=== PATIENT | male | born 1960 | race Caucasian/White ===

== ENCOUNTER → 2017-07-17 11:27 | Outpatient (CLI) | payer OTHER, SELFPAY ==
[2017-07-17 12:35] LABS: Anion Gap 6 (5-15); BUN 13 mg/dL (7-18); BUN/Creat Ratio 13.3 RATIO (10-20); Calcium,Total 8.5 mg/dL (8.5-10.1); Chloride 107 mmol/L (98-107); Creatinine, Serum 0.98 mg/dL (0.70-1.30); EST Glomerular Filtration Rate 84 mL/min (>60); Est Glom Filt Rate - Afr Amer 102 mL/min (>60); Glucose 176 mg/dL (74-106); Potassium 4.3 mmol/L (3.5-5.1); Sodium Level 143 mmol/L (136-145)
== END ==
PROVIDERS: Family Provider Family Medicine; PCP Family Medicine; Visit Provider Internal Medicine Cardiovascular Disease
DX: I42.0 Dilated cardiomyopathy (principal)
CPT/HCPCS: 36415; 80048

== ENCOUNTER → 2017-08-06 12:44 | Outpatient (CLI) | payer OTHER, SELFPAY ==
--- NOTE | 2017-08-06 12:45 | ECHOCS_ITS ---
Version 2 Reason For Study: DYSPNEA Left Ventricle Severely dilated left ventricle. The estimated ejection fraction is 15 %. Transmitral diastolic flow velocities suggest severe (stage 3) diastolic dysfunction. There is severe global hypokinesis of the left ventricle. Right Ventricle Normal RV size. Normal systolic function. Atria The left atrium is severely enlarged. The right atrium is moderately enlarged. Mitral Valve Normal mitral valve. Mild (1+) eccentric mitral valve insufficiency. Tricuspid Valve Normal tricuspid valve. Mild to moderate (1-2+) tricuspid valve insufficiency. Pulmonary artery systolic pressure is 30 mmHg. Aortic Valve Normal aortic valve. Pulmonic Valve Normal pulmonic valve. Great Vessels Normal aortic root. The pulmonary artery is normal size. Normal inferior vena cava. Pericardium/Pleural No pericardial effusion. MMode/2D Measurements & Calculations LVIDd: 6.8 cm IVSd: 0.94 cm LA dimension: 5.3 cm LVIDs: 6.2 cm LVPWd: 0.99 cm RVDd: 3.9 cm FS: 8.4 % LAV(MOD-bp): 134.2 ml EDV(MOD-sp4): 251.1 ml EDV(MOD-sp2): 172.8 ml LAV(MOD-bp) Indexed: 53.5 ml/m2 ESV(MOD-sp4): 170.3 ml EF(MOD-sp2): 37.8 % LAV(MOD-sp2): 106.9 ml EF(MOD-sp4): 32.2 % LAV(MOD-sp4): 156.1 ml SV(MOD-sp4): 80.8 ml SV(MOD-sp2): 65.3 ml LA A4 area: 38.4 cm2 RA A4 area: 21.5 cm2 Doppler Measurements & Calculations MV E max abner: 82.4 cm/sec Ao V2 max: 154.0 cm/sec LV V1 max: 102.3 cm/sec MV A max abner: 39.3 cm/sec Ao max P.5 mmHg LV V1 max P.2 mmHg MV E/A: 2.1 TR max abner: 261.1 cm/sec TR max P.3 mmHg Interpretation Summary Severely dilated left ventricle. The estimated ejection fraction is 15 %. Transmitral diastolic flow velocities suggest severe (stage 3) diastolic dysfunction Mild to moderate (1-2+) tricuspid valve insufficiency. Pulmonary artery systolic pressure is 30 mmHg. Compared to the previous pulmonary pressures are better Contrast injection was performed. Compared to prior study, there is no significant change. Ordering Physician: Brady Regalado Referring Physician: Brady Regalado Performed By: Tram Mclaughlin, RDCS, RVT
== END ==
PROVIDERS: Family Provider Family Medicine; PCP Family Medicine; Visit Provider Internal Medicine Cardiovascular Disease
DX: I48.2 Chronic atrial fibrillation (principal); R06.00 Dyspnea, unspecified; R06.02 Shortness of breath
CPT/HCPCS: 93306; Q9957; A4216; C8929

== ENCOUNTER → 2018-05-18 14:41 | Outpatient (CLI) | payer OTHER, SELFPAY ==
[2018-05-18 13:26] VITALS: BMI 40.0
[2018-05-18 16:05] LABS: Anion Gap 10 (5-15); BUN 15 mg/dL (7-18); BUN/Creat Ratio 13.4 RATIO (10-20); Chloride 110 mmol/L (98-107); Creatinine, Serum 1.12 mg/dL (0.70-1.30); EST Glomerular Filtration Rate 72 mL/min (>60); Est Glom Filt Rate - Afr Amer 87 mL/min (>60); Glucose 170 mg/dL (74-106); Sodium Level 143 mmol/L (136-145)
--- OUTSIDE RECORDS SUMMARY | 2018-07-21 02:53 | XMS RPT_ITS | Summary of Care ---
:1960 Author Organization [facility] Address [address] [place] [address] Phone Care Team Providers Name Role Phone Maico Lainez MD Primary Care Provider Brady Regalado MD Referring 1 Kyaw Bateman MD Referring 2 Mandi Peoples MD Referring 3 Encounter Details Date Type Department Care Team Description 04/06/2018 Letter (Out) Revenue Cycle Marbella Painter RN Allergies No Known Allergiesas of this encounter Medications Prescription Sig. Disp. Refills Start Date End Date Status furOSEmide 40 MG Tab Take 40 mg by Active tablet mouth 2 times daily. atorvastatin 40 MG Tab Take 40 mg by Active tablet mouth at bedtime. potassium chloride 20 Take 20 mEq by Active MEQ Tab CR tablet mouth 2 times daily. aspirin 81 MG Tab Take 81 mg by Active mouth daily. losartan 25 MG Tab Take 25 mg by Active tablet mouth daily. oxygen gas Inhale As Active directed. At night 2-3 liter spironolactone Take 1 tablet by 30 tablet 6 02/09/2018 Active (ALDACTONE) 25 MG Tab mouth daily. tabletIndications: Nonischemic cardiomyopathy metformin 500 MG Tab Take 500 mg by Active tablet mouth 2 times daily with meals. carveDILOL 12.5 MG Tab Take 1 tablet by 60 tablet 5 03/13/2018 Active tabletIndications: mouth 2 times Nonischemic daily. cardiomyopathy sacubitril-valsartan Take 1 tablet by 60 tablet 3 03/16/2018 Active (ENTRESTO) 24-26 MG Tab mouth 2 times tablet daily. as of this encounter Active Problems Problem Noted Date PVC (premature ventricular contraction) 12/02/2017 Overview: Added automatically from request for surgery [id number] Nonischemic cardiomyopathy 12/02/2017 Overview: Added automatically from request for surgery [id number] Social History Tobacco Use Types Packs/Day Years Used Date Former Smoker Cigarettes 40 Quit: 01/10/2017 Smokeless Tobacco: Never Used Alcohol Use Drinks/Week oz/Week Comments No Sex Assigned at Date Recorded Not on file as of this encounter Plan of Treatment Upcoming Encounters Date Type Specialty Care Team Description 05/20/2018 Appointment Cardiovascular Medicine 06/19/2018 Office Visit Cardiovascular Medicine Mandi Peoples MD [address] [place] [phone] 08/10/2018 Clinical Support Cardiovascular Medicine Encounter 08/19/2018 Appointment Cardiovascular Medicine 11/18/2018 Appointment Cardiovascular Medicine 02/17/2019 Appointment Cardiovascular Medicine Health Maintenance Due Date Last Done Comments HEPATITIS C VIRUS SCREENING 1960 HIV SCREENING DISCUSSION 07/23/1975 TETANUS 1980 TDAP (ADULT) 1981 LIPID SCREENING 2002 COLON CANCER SCREENING DISCUSSION 2012 PROSTATE CANCER SCREENING 2012 DISCUSSION INFLUENZA VACCINE (#1) 2017 04/14/2017 POTASSIUM 03/06/2019 03/06/2018, 02/09/2018, 01/01/2018, Additional history exists as of this encounter Implants Implanted Type Area Chlorine Operator Device Identifier Expiration Model / Date Serial / Lot Generator Pulse Sicd [facility] Mri - [id number] ICD N/A: GUIDANT/[place] [id number] 12/10/2019 A219 / Implanted: Qty: 1 on 01/01/2018 by Kyaw Bateman MD Chest SCI [id number] / [id number] Electrode [place] S-Icd - [id number] Lead N/A: GUIDANT/[place] [id number] 10/10/2019 3501 / Implanted: Qty: 1 on 01/01/2018 by Kyaw Bateman MD Chest SCI CRM [id number] / as of this encounter
--- OUTSIDE RECORDS SUMMARY | 2018-07-21 02:53 | XMS RPT_ITS | Summary of Care ---
:1960 Author Organization [facility] Address [address] [place] [address] Phone Care Team Providers Name Role Phone Maico Lainez MD Primary Care Provider Brady Regalado MD Referring 1 Kyaw Bateman MD Referring 2 Mandi Peoples MD Referring 3 Reason for Visit Reason Comments Other Encounter Details Date Type Department Care Team Description 03/16/2018 Telephone [facility] RN Other [facility] [address] [place] [address] Allergies No Known Allergiesas of this encounter Medications Prescription Sig. Disp. Refills Start Date End Date Status furOSEmide 40 MG Tab Take 40 mg Active tablet by mouth 2 times daily. atorvastatin 40 MG Take 40 mg Active Tab tablet by mouth at bedtime. potassium chloride 20 Take 20 mEq Active MEQ Tab CR tablet by mouth 2 times daily. aspirin 81 MG Tab Take 81 mg Active by mouth daily. losartan 25 MG Tab Take 25 mg Active tablet by mouth daily. oxygen gas Inhale As Active directed. At night 2-3 liter spironolactone Take 1 30 tablet 6 02/09/2018 Active (ALDACTONE) 25 MG Tab tablet by tabletIndications: mouth daily. Nonischemic cardiomyopathy metformin 500 MG Tab Take 500 mg Active tablet by mouth 2 times daily with meals. carveDILOL 12.5 MG Take 1 60 tablet 5 03/13/2018 Active Tab tablet by tabletIndications: mouth 2 Nonischemic times daily. cardiomyopathy sacubitril-valsartan Take 1 60 tablet 3 03/16/2018 Active (ENTRESTO) 24-26 MG tablet by Tab tablet mouth 2 times daily. sacubitril-valsartan Take 1 60 tablet 3 03/16/2018 03/16/2018 Discontinued (ENTRESTO) 24-26 MG tablet by Tab tablet mouth 2 times daily. as of this encounter Active Problems Problem Noted Date PVC (premature ventricular contraction) 12/02/2017 Overview: Added automatically from request for surgery [id number] Nonischemic cardiomyopathy 12/02/2017 Overview: Added automatically from request for surgery [id number] Social History Tobacco Use Types Packs/Day Years Used Date Former Smoker Cigarettes 40 Quit: 01/10/2017 Smokeless Tobacco: Never Used Alcohol Use Drinks/Week oz/Week Comments No Sex Assigned at Date Recorded Not on file as of this encounter Plan of Treatment Upcoming Encounters Date Type Specialty Care Team Description 05/20/2018 Appointment Cardiovascular Medicine 06/19/2018 Office Visit Cardiovascular Medicine Mandi Peoples MD [address] [place] [phone] 08/10/2018 Clinical Support Cardiovascular Medicine Encounter [...] of this encounter Implants Implanted Type Area Dip Tanker Device Identifier Expiration Model / Date Serial / Lot Generator Pulse Sicd [facility] Mri - [id number] ICD N/A: [employer]SOCRATES/[place] [id number] 12/10/2019 A219 / Implanted: Qty: 1 on 01/01/2018 by Kyaw Bateman MD Chest SCI [id number] / [id number] Electrode [place] S-Icd - [id number] Lead N/A: GUIDANT/[place] [id number] 10/10/2019 3501 / Implanted: Qty: 1 on 01/01/2018 by Kyaw Bateman MD Chest SCI CRM [id number] / as of this encounter
--- OUTSIDE RECORDS SUMMARY | 2018-07-21 02:53 | XMS RPT_ITS | Summary of Care ---
:1960 Author Organization [facility] Address [address] [place] [address] Phone Care Team Providers Name Role Phone Maico Lainez MD Primary Care Provider Brady Regalado MD Referring 1 Kyaw Bateman MD Referring 2 Mandi Peoples MD Referring 3 Reason for Visit Reason Comments Medication Refill Recommendation For Mgmt Of Diagnosis Encounter Details Date Type Department Care Team Description 03/16/2018 Telephone [facility], Medication Refill; [facility] RN Recommendation For Mgmt Of Hospital Diagnosis [address] [place] [address] Allergies No Known Allergiesas of [...] tabletIndications: mouth 2 times Nonischemic daily. cardiomyopathy as of this encounter Active Problems Problem Noted Date PVC (premature ventricular contraction) 12/02/2017 Overview: Added automatically from request for surgery [id number] Nonischemic cardiomyopathy 12/02/2017 Overview: Added automatically from request for surgery [id number] Social History Tobacco Use Types Packs/Day Years Used Date Former Smoker Cigarettes 40 Quit: 01/10/2017 Smokeless Tobacco: Never Used Alcohol Use Drinks/Week oz/Week Comments No Sex Assigned at Date Recorded Not on file as of this encounter Plan of Treatment Upcoming Encounters Date Type Specialty Care Team Description 05/20/2018 Appointment Cardiovascular Medicine 06/19/2018 Office Visit Cardiovascular Medicine Mandi Peoples MD [address] [place] [phone] 08/10/2018 Clinical Support Cardiovascular Medicine Encounter [...] of this encounter Implants Implanted Type Area Upper Tier Device Identifier Expiration Model / Date Serial / Lot Generator Pulse Sicd [facility] Mri - [id number] ICD N/A: GUIDANT/[place] [id number] 12/10/2019 A219 / Implanted: Qty: 1 on 01/01/2018 by Kyaw Bateman MD Chest SCI [id number] / [id number] Electrode [place] S-Icd - [id number] Lead N/A: GUIDANT/[place] [id number] 10/10/2019 3501 / Implanted: Qty: 1 on 01/01/2018 by Kyaw Bateman MD Chest SCI CRM [id number] / as of this encounter
--- OUTSIDE RECORDS SUMMARY | 2018-07-21 02:53 | XMS RPT_ITS | Summary of Care ---
:1960 Author Organization [facility] Address [address] [place] [address] Phone Care Team Providers Name Role Phone Maico Lainez MD Primary Care Provider Brady Regalado MD Referring 1 Kyaw Bateman MD Referring 2 Mandi Peoples MD Referring 3 Reason for Visit Reason Comments Other Encounter Details Date Type Department Care Team Description 03/16/2018 Telephone [facility] RN Other [facility] [address] [place] [address] Allergies No Known Allergiesas of [...] Overview: Added automatically from request for surgery [id number] Nonischemic cardiomyopathy 12/02/2017 Overview: Added automatically from request for surgery [id number] Social History Tobacco Use Types Packs/Day Years Used Date Former Smoker Cigarettes 40 Quit: 01/10/2017 Smokeless Tobacco: Never Used Alcohol Use Drinks/Week oz/Week Comments No Sex Assigned at Date Recorded Not on file as of this encounter Plan of Treatment Upcoming Encounters Date Type Specialty Care Team Description 05/20/2018 Appointment Cardiovascular Medicine 06/19/2018 Office Visit Cardiovascular Medicine Mandi Peoples MD [address] [place] [phone] 08/10/2018 Clinical Support Cardiovascular Medicine Encounter 08/19/2018 [...] of this encounter Implants Implanted Type Area Cake Mixer Device Identifier Expiration Model / Date Serial / Lot Generator Pulse Sicd [facility] Mri - [id number] ICD N/A: GUIDANT/[place] [id number] 12/10/2019 A219 / Implanted: Qty: 1 on 01/01/2018 by Kyaw Bateman MD Chest SCI [id number] / [id number] Electrode [place] S-Icd - [id number] Lead N/A: GUIDANT/[place] [id number] 10/10/2019 3501 / Implanted: Qty: 1 on 01/01/2018 by Kyaw Bateman MD Chest SCI CRM [id number] / as of this encounter
--- OUTSIDE RECORDS SUMMARY | 2018-07-21 02:53 | XMS RPT_ITS | Summary of Care ---
:1960 Author Organization [facility] Address [address] [place] [address] Phone Care Team Providers Name Role Phone Maico Lainez MD Primary Care Provider Brady Regalado MD Referring 1 Kyaw Bateman MD Referring 2 Mandi Peoples MD Referring 3 Encounter Details Date Type Department Care Team Description 03/06/2018 Notes/Results Only NOTES/RESULTS Other, Other Allergies No Known Allergiesas of this encounter [...] MG Tab mouth daily. tabletIndications: Nonischemic cardiomyopathy as of this encounter Active Problems Problem Noted Date PVC (premature ventricular contraction) 12/02/2017 Overview: Added automatically from request for surgery [id number] Nonischemic cardiomyopathy 12/02/2017 Overview: Added automatically from request for surgery [id number] Social History Tobacco Use Types Packs/Day Years Used Date Former Smoker Cigarettes 40 Quit: 01/10/2017 Smokeless Tobacco: Never Used Alcohol Use Drinks/Week oz/Week Comments No Sex Assigned at Date Recorded Not on file as of this encounter Plan of Treatment Upcoming Encounters Date Type Specialty Care Team Description 05/20/2018 Appointment Cardiovascular Medicine 06/19/2018 Office Visit Cardiovascular Medicine Mandi Peoples MD [address] [place] [address] [phone] 08/10/2018 Clinical Support Cardiovascular Medicine Encounter 08/19/2018 [...] of this encounter Implants Implanted Type Area Coordinator Of Evaluation Device Identifier Expiration Model / Date Serial / Lot Generator Pulse Sicd [facility] Mri - [id number] ICD N/A: GUIDANT/[place] [id number] 12/10/2019 A219 / Implanted: Qty: 1 on 01/01/2018 by Kyaw Bateman MD Chest SCI [id number] / [id number] Electrode [place] S-Icd - [id number] Lead N/A: GUIDANT/[place] [id number] 10/10/2019 3501 / Implanted: Qty: 1 on 01/01/2018 by Kyaw Bateman MD Chest SCI CRM [id number] / as of this encounter Procedures Procedure Name Priority Date/Time Associated Diagnosis Comments LABS (OUTSIDE) 03/06/2018 12:00 AM EST in this encounter Results LABS (OUTSIDE) (03/06/2018) Narrative Performed At in this encounter
--- OUTSIDE RECORDS SUMMARY | 2018-07-21 02:53 | XMS RPT_ITS | Summary of Care ---
:1960 Author Organization [facility] Address [address] [place] [address] Phone Care Team Providers Name Role Phone Maico Lainez MD Primary Care Provider Brady Regalado MD Referring 1 Kyaw Bateman MD Referring 2 Mandi Peoples MD Referring 3 Reason for Visit Reason Comments Other Encounter Details Date Type Department Care Team Description 03/16/2018 Telephone [facility] RN Other [facility] [address] [place] [address] Allergies No Known Allergiesas of [...] Overview: Added automatically from request for surgery [id number] Nonischemic cardiomyopathy 12/02/2017 Overview: Added automatically from request for surgery [id number] Social History Tobacco Use Types Packs/Day Years Used Date Former Smoker Cigarettes 40 Quit: 01/10/2017 Smokeless Tobacco: Never Used Alcohol Use Drinks/Week oz/Week Comments No Sex Assigned at Date Recorded Not on file as of this encounter Plan of Treatment Upcoming Encounters Date Type Specialty Care Team Description 05/20/2018 Appointment Cardiovascular Medicine 06/19/2018 Office Visit Cardiovascular Medicine Mandi Peoples MD [address] [place] [phone] 08/10/2018 Clinical Support Cardiovascular Medicine Encounter [...] of this encounter Implants Implanted Type Area Pointer Helper Device Identifier Expiration Model / Date Serial / Lot Generator Pulse Sicd [facility] Mri - [id number] ICD N/A: [employer]ATES/[place] [id number] 12/10/2019 A219 / Implanted: Qty: 1 on 01/01/2018 by Kyaw Bateman MD Chest SCI [id number] / [id number] Electrode [place] S-Icd - [id number] Lead N/A: GUIDANT/[place] [id number] 10/10/2019 3501 / Implanted: Qty: 1 on 01/01/2018 by Kyaw Bateman MD Chest SCI CRM [id number] / as of this encounter
--- OUTSIDE RECORDS SUMMARY | 2018-07-21 02:53 | XMS RPT_ITS | Summary of Care ---
:1960 Author Organization [facility] Address [address] [place] [address] Phone Care Team Providers Name Role Phone Maico Lainez MD Primary Care Provider Brady Regalado MD Referring 1 Kyaw Bateman MD Referring 2 Mandi Peoples MD Referring 3 Reason for Visit Reason Comments Other Encounter Details Date Type Department Care Team Description 03/16/2018 Telephone [facility] RN Other [facility] [address] [place] [address] Allergies No Known Allergiesas of [...] Overview: Added automatically from request for surgery [id number] Nonischemic cardiomyopathy 12/02/2017 Overview: Added automatically from request for surgery [id number] Social History Tobacco Use Types Packs/Day Years Used Date Former Smoker Cigarettes 40 Quit: 01/10/2017 Smokeless Tobacco: Never Used Alcohol Use Drinks/Week oz/Week Comments No Sex Assigned at Date Recorded Not on file as of this encounter Plan of Treatment Upcoming Encounters Date Type Specialty Care Team Description 05/20/2018 Appointment Cardiovascular Medicine 06/19/2018 Office Visit Cardiovascular Medicine Mandi Peoples MD [address] [place] [id number] 08/10/2018 Clinical Support Cardiovascular Medicine Encounter 08/19/2018 [...] of this encounter Implants Implanted Type Area Shake Loader Device Identifier Expiration Model / Date Serial / Lot Generator Pulse Sicd [facility] Mri - [id number] ICD N/A: GUIDANT/[employer] [id number] 12/10/2019 A219 / Implanted: Qty: 1 on 01/01/2018 by Kyaw Bateman MD [id number] / [id number] Electrode [place] S-[employer]cd - [id number] Lead N/A: [employer] [id number] 10/10/2019 3501 / Implanted: Qty: 1 on 01/01/2018 by Kyaw Bateman MD [id number] / as of this encounter
--- OUTSIDE RECORDS SUMMARY | 2018-07-21 02:53 | XMS RPT_ITS | Summary of Care ---
:1960 Author Organization [facility] Address [address] [place] [address] Phone Care Team Providers Name Role Phone Maico Lainez MD Primary Care Provider Brady Regalado MD Referring 1 Kyaw Bateman MD Referring 2 Mandi Peoples MD Referring 3 Reason for Visit Reason Comments Other Encounter Details Date Type Department Care Team Description 03/16/2018 Telephone [facility] RN Other [facility] [address] [place] [address] Allergies No Known Allergiesas of [...] Overview: Added automatically from request for surgery [id number] Nonischemic cardiomyopathy 12/02/2017 Overview: Added automatically from request for surgery [id number] Social History Tobacco Use Types Packs/Day Years Used Date Former Smoker Cigarettes 42 Quit: 01/10/2017 Smokeless Tobacco: Never Used Alcohol Use Drinks/Week oz/Week Comments No Sex Assigned at Date Recorded Not on file as of this encounter Plan of Treatment Upcoming Encounters Date Type Specialty Care Team Description 05/20/2018 Appointment Cardiovascular Medicine 06/19/2018 Office Visit Cardiovascular Medicine Mandi Peoples MD [address] [place] [phone] 08/10/2018 Clinical Support Cardiovascular Medicine Encounter [...] of this encounter Implants Implanted Type Area Cold Working Supervisor Device Identifier Expiration Model / Date Serial / Lot Generator Pulse Sicd [facility] Mri - [id number] ICD N/A: [employer] [id number] 12/10/2019 A219 / Implanted: Qty: 1 on 01/01/2018 by Kyaw Bateman MD [id number] / [id number] Electrode [place] S-Icd - [id number] Lead N/A: [employer] [id number] 10/10/2019 3501 / Implanted: Qty: 1 on 01/01/2018 by Kyaw Bateman MD [id number] / as of this encounter
--- OUTSIDE RECORDS SUMMARY | 2018-07-21 02:54 | XMS RPT_ITS ---
:1960 Author Organization [place] Support Name Relationship Address Phone BLAKE COLT Unavailable [address] + [place] [address] BLAKE CINDY Unavailable Unavailable Unavailable [employer] Unavailable [address] + [place] [address] BLAKE, COLT Unavailable [address] + [place] [address] [employer] Unavailable [address] + [place] [address] BLAKE, COLT Unavailable [address] + [place] [address] BLAKE, COLT Unavailable [address] + [place] [address] BLAKE CINDY Unavailable Unavailable Unavailable BLAKE, COLT Unavailable [address] + [place] [address] BLAKE CINDY Unavailable Unavailable Unavailable BLAKE, COLT Unavailable [address] + [place] [address] BLAKE CINDY Unavailable Unavailable Unavailable BLAKE, COLT Unavailable [address] + [place] [address] BLAKE CINDY Unavailable Unavailable Unavailable BLAKE, COLT Unavailable [address] + [place] [address] BLAKE CINDY Unavailable Unavailable Unavailable BLAKE, COLT Unavailable [address] + [place] [address] BLAKE CINDY Unavailable Unavailable Unavailable [employer] Unavailable [address] + [place] [address] BLAKE, COLT Unavailable [address] + [place] [address] [employer] Unavailable [address] + [place] [address] BLAKE, COLT Unavailable [address] + [place] [address] [employer] Unavailable [address] + [place] [address] BLAKE, COLT Unavailable [address] + [place] [address] [employer] Unavailable [address] + [place] [address] BLAKE, COLT Unavailable [address] + [place] [address] [employer] Unavailable [address] + [place] [address] BLAKE, COLT Unavailable [address] + [place] [address] [employer] Unavailable [address] + [place] [address] BLAKE, COLT Unavailable [address] + [place] [address] [employer] Unavailable [address] + [place] [address] BLAKE, COLT Unavailable [address] + [place] [address] Care Team Providers Name Role Phone FabricioTheo hinkleril Attending Unavailable Primay Care Physicia, No Referring Unavailable Primay Care Physicia, No Primary Care Unavailable Fabricio, Brady Attending Unavailable Fabricio, Brady Referring Unavailable RhodesDmitryDimitry Primary Care Unavailable Fabricio, Durham Attending Unavailable Fabricio, Brady Referring Unavailable Dmitry Rhodesophe Primary Care Unavailable Fabricio, Brady Attending Unavailable Lizeth Rogers Attending Unavailable Dimitry Rhodes Referring Unavailable Nurse, Standard Attending Unavailable Dimitry Rhodes Referring Unavailable Migel, Dimitry Primary Care Unavailable Lizeth Rogers Attending Unavailable Dimitry Rhodes Referring Unavailable Rogers, Lizeth Mandel Attending Unavailable Rogers, Lizeth Mandel Referring Unavailable Rhodes, Dimitry Primary Care Unavailable Nurse, Standard Attending Unavailable Rhodes, Dimitry Referring Unavailable GI, DEJUAN G Attending Unavailable GI, DEJUAN G Referring Unavailable GI, DEJUAN G Attending Unavailable ROGERS, LIZETH Mandel Referring Unavailable RHODES, CHRISTOPHER D Primary Care Unavailable GI, DEJUAN G Admitting Unavailable GI, DEJUAN G Attending Unavailable RHODES, CHRISTOPHER D Primary Care Unavailable PEOPLES, MEREDITH Meade Attending Unavailable GI, DEJUAN G Referring Unavailable RHODES, CHRISTOPHER D Primary Care Unavailable PEOPLES, MEREDITH Meade Attending Unavailable RHODES, CHRISTOPHER D Referring Unavailable RHODES, CHRISTOPHER D Primary Care Unavailable PEOPLES, MEREDITH Meade Attending Unavailable RHODES, CHRISTOPHER D Referring Unavailable RHODES, CHRISTOPHER D Primary Care Unavailable PEOPLES, MEREDITH Meade Attending Unavailable RHODES, CHRISTOPHER D Referring Unavailable RHODES, CHRISTOPHER D Primary Care Unavailable AUGOSTINI, RSA MARVIN Attending Unavailable AUGOSTINI, RSA MARVIN Referring Unavailable RHODES, CHRISTOPHER D Primary Care Unavailable Rhodes, Christopher Attending Unavailable Rhodes, Christopher Primary Care Unavailable Rhodes, Christopher Attending Unavailable Rhodes, Christopher Primary Care Unavailable Rhodes, Christopher Admitting Unavailable Rhodes, Christopher Attending Unavailable Rhodes, Christopher Primary Care Unavailable Rhodes, Christopher Attending Unavailable Rhodes, Christopher Primary Care Unavailable Rhodes, Christopher Attending Unavailable Rhodes, Christopher Primary Care Unavailable Rhodes, Christopher Primary Care Unavailable Rhodes, Christopher Admitting Unavailable Rhodes, Christopher Attending Unavailable Rhodes, Christopher Attending Unavailable Rhodes, Christopher Primary Care Unavailable Rhodes, Christopher Primary Care Unavailable Rhodes, Christopher Admitting Unavailable Rhodes, Christopher Attending Unavailable Rhodes, Christopher Attending Unavailable Rhodes, Christopher Primary Care Unavailable Rhodes, Christopher Primary Care Unavailable Rhodes, Christopher Admitting Unavailable Rhodes, Christopher Attending Unavailable Rhodes, Christopher Admitting Unavailable Rhodes, Christopher Attending Unavailable Rhodes, Christopher Primary Care Unavailable Peoples, Meredith Meade Admitting Unavailable Peoples, Meredith Meade Attending Unavailable Rhodes, Christopher Primary Care Unavailable Rhodes, Christopher Attending Unavailable Rhodes, Christopher Primary Care Unavailable Rhodes, Christopher Attending Unavailable Rhodes, Christopher Primary Care Unavailable Rhodes, Christopher Attending Unavailable Rhodes, Christopher Primary Care Unavailable Rhodes, Christopher Primary Care Unavailable PROBLEMS PROBLEMS DATE TYPE CONDITION / CODE ATTENDING STATUS SOURCE 05/18/2018 Unknown I43 - Cardiomyopathy Nora, Active [facility] in diseases [facility] classified elsewhere Hospital / I43(ICD-10) Repository 05/18/2018 Unknown I48.91 - Unspecified Nora, Active [facility] atrial fibrillation / [facility] I48.91(ICD-10) Hospital Repository 05/18/2018 Unknown Z95.810 - Presence of Nora, Active [facility] automatic [facility] (implantable) cardiac Hospital defibrillator / Repository Z95.810(ICD-10) 03/13/2018 Admitting Follow-up / 145() MEREDITH PEOPLES Active [facility] Repository 01/01/2018 Admitting Other acute GI, DEJUAN G Active [facility] diagnosis postprocedural pain / University G89.18(ICD-10) [facility] Repository 01/01/2018 Admitting Ventricular premature GI, DEJUAN G Active [facility] diagnosis depolarization / University I49.3(ICD-10) [facility] Repository 01/01/2018 Admitting Other GI, DEJUAN G Active [facility] diagnosis cardiomyopathies / University I42.8(ICD-10) [facility] Repository 11/14/2017 Unknown Z98.890 - Other Nurse, Active [facility] specified [facility] postprocedural [facility] / Z98.890(ICD-10) Repository 11/14/2017 Unknown R06.09 - Other forms Nurse, Active [facility] of dyspnea / [facility] R06.09(ICD-10) Hospital Repository 10/21/2017 Unknown I44.7 - Left Rogers, Active University bundle-branch block, [facility] unspecified / Hospital I44.7(ICD-10) Repository 08/27/2017 Unknown R06.02 - Shortness of Fabricio, Brady Active [facility] breath / Community R06.02(ICD-10) Hospital Repository 07/17/2017 Unknown I48.2 - Chronic Fabricio, Brady Active [facility] atrial fibrillation / Community I48.2(ICD-10) Hospital Repository 07/17/2017 Unknown I42.0 - Dilated Fabricio, Durham Active [facility] cardiomyopathy / Community I42.0(ICD-10) Hospital Repository 07/17/2017 Unknown I10 - Essential Fabricio, Brady Active [facility] (primary) Community hypertension / Hospital I10(ICD-10) Repository 07/17/2017 Unknown E78.00 - Pure Fabricio, Brady Active [facility] hypercholesterolemia, Community unspecified / Hospital E78.00(ICD-10) Repository 07/17/2017 Unknown E66.9 - Obesity, Fabricio, Brady Active [facility] unspecified / Community E66.9(ICD-10) Hospital Repository 07/17/2017 Unknown R06.83 - Snoring / Fabricio, Durham Active University R06.83(ICD-10) [facility] Repository PROCEDURES PROCEDURES No Procedure Records FoundRESULTS RESULTS CARDIOLOGY VISIT Observed: 05/20/2018 Status: F Source: [facility] 4:00 PM [facility] REPOSITORY [facility] [address] [place] [address] OFFICE VISIT Date of Service: 05/18/18 MR#: [id number] Acct: [id number] Name: CINDY LOZANO Rep #: [id number] : 1960 Provider: Lizeth Rogers Age/Sex: 57/M Location: [facility] Status: Signed [facility] Chief Complaint: Follow-up visit. Details: CNIDY LOZANO, is a 57 M who presents to the office today for an urgent follow at the request of his PCP. Patient has a history of nonischemic cardiomyopathy. He recently underwent an ICD placement down at [facility]. He had his ICD placed in December of 2017. Patient presented to his primary care office last week for an appointment. During that appointment he noted that he was more short of breath. EKG discovered that he was in atrial fibrillation. This is a newer finding for patient. Pt sts that [facility] placed pt on Entresto in February. He was referred to them following his ICD placement. Pt sts that he started to feel lightheaded and dizzy. He was in to see his PCP. He noted that this did not improve. PCP did EKG and was noted to be in Atrial fib. Medications were adjusted. His PCP stopped his entresto, and restarted his losartan, increased his coreg and started him in Eliquis. Pt feels that his SOB did improved and now has worsened. In the summer he was able to walk without problems. Since February he felt that this was an issue. He can not carry a bale of hay without getting SOB. Where as over the summer he was able to do this with out an issue. He does not have orthopnea. He does sometimes feel that his heart is beating faster. This is newer for him. Over the summer he did not have lightheadedness/dizziness, over the last few weeks this is an issue. This is always positional. He does not have any edema. He does not have any chest pain. he was started on a CPAP. Intake Vital Signs05/18/18 Height 6 ft 05/18/18 Weight: 295 lb 05/18/18 Body Mass Index (BMI) 40.0 05/18/18 Blood Pressure 102/58 L Intake Visit Reasons: per MMM [employer] Required: No Accompanied by: Is patient in pain?: No Allergies No Known Allergies Allergy (Verified 05/18/18 13:32) Medications furosemide 40 mg tablet 40 mg PO BID #180 tab 04/24/17 [Rx Confirmed 05/18/18] potassium chloride ER 20 mEq tablet,extended release(part/cryst) 20 meq PO BID #180 tab 04/24/17 [Rx Confirmed 05/18/18] aspirin 81 mg tablet,delayed release 81 mg PO DAILY@0800 #90 tab 07/17/17 [Rx Confirmed 05/18/18] atorvastatin 40 mg tablet 40 mg PO QHS #90 tab 07/17/17 [Rx Confirmed 05/18/18] carvedilol 25 mg tablet 25 mg PO BID 07/17/17 [History Confirmed 05/18/18] losartan 25 mg tablet 25 mg PO QDAY 07/17/17 [History Confirmed 05/18/18] apixaban 5 mg tablet 5 mg PO BID 05/18/18 [History Confirmed 05/18/18] dapagliflozin 10 mg tablet 10 mg PO DAILY 05/18/18 [History Confirmed 05/18/18] metformin 1,000 mg tablet PO 12 Days #24 tab 05/18/18 [History Confirmed 05/18/18] spironolactone 25 mg tablet PO 30 Days #30 tab 05/18/18 [History Confirmed 05/18/18] Ejection fraction %: 15 to 19 PFSH Medical History Cardiomyopathy in other diseases classified elsewhere (Chronic) Tobacco abuse (Resolved) Snoring (Chronic) Dyspnea on exertion (Chronic) Nonrheumatic tricuspid (valve) insufficiency (Chronic) Nonrheumatic mitral valve insufficiency (Chronic) Chronic systolic (congestive) heart failure (Chronic) Dilated cardiomyopathy (Chronic) Atrial fibrillation (Chronic) Hypertension (Chronic) Hyperlipidemia (Chronic) Pulmonary hypertension (Chronic) Surgical History Presence of implantable cardioverter-defibrillator (ICD) (Resolved 01/01/18) History of left heart catheterization (Chronic) History of oral surgery (Resolved) Family History Mother CAD (coronary artery disease) Onset under age 65 Father Cancer lung Social History Smoking Status: Former smoker quit date: 01/25/17 pack-years: 40 alcohol intake: never caffeine: Yes Type: carbonated beverages Number of servings: 2 ROS Const Const: Positive for fatigue; negative for weakness, fever(s) or headache(s) Eyes Eyes: Negative for blind spots, loss of peripheral vision or transient loss of vision ENT ENT: Negative for headache(s), dizziness, tinnitus or Nosebleed/epistaxis Cardio Chest Pain: No Palpitations: Yes Edema: None Muscle aches with walking: None Resp Respiratory: Positive for SOB with activity; negative for SOB at rest, SOB orthopnea\SOB lying down or Cough GI GI: Negative nausea, vomiting, heartburn or vomiting blood/hematemesis : Negative for hematuria Musc Musc: Negative for muscle aches/ myalgia Neuro Neuro: Negative for weakness, headache(s), dizziness, near syncope, syncope, lightheadedness or orthostatic symptoms Efraín Hematologic/Lymphatic: Negative for easy bleeding Endo Endo: Positive for fatigue Cardiology Exam Const Appearance: cooperative, no acute distress and well developed Orientation: alert, awake and oriented x3 Head Head: normocephalic and atraumatic Mouth: moist mucous membranes Eyes General: appearance normal, both eyes and all related structures Conjunctivae: conjunctivae normal Pupils: PERRL EOM: EOM intact bilaterally Neck Neck: normal visual inspection, no lymphadenopathy and no JVD Carotids: Negative bruit Neck Mass: Negative Neck mass Chest Chest inspection: normal inspection of the chest and symmetric chest movement Auscultation: Bilateral: Clear to Auscultation Cardio Palpation: normal PMI Rate: regular rate Rhythm: irregularly irregular Heart sounds: S1 normal and S2 normal; negative rub, gallop or murmur GI GI: normal to inspection, soft, no hepatosplenomegaly and bowel sounds present; negative tender Neuro General: alert, awake, oriented x3, CN's II-XI intact bilaterally and moves all extremities Extremities Pulses: Normal: Right Posterior Tibial Pulse, Left Posterior Tibial Pulse, Right Radial Pulse, Left Radial Pulse Lower Extremity Edema: None: Bilateral Psych Psychological: normal affect Assessment AND Plan 1. Persistent atrial fibrillation I48.1 FAREED Murphy Patient does appear to have gone back into atrial fibrillation. He was recently started on a factor Xa inhibitor. His rate does appear somewhat controlled. For now he will continue with his current medical management. We will plan on doing a cardioversion after he has been anticoagulated for at least 3 weeks. Tentatively scheduled for June 08 2. Cardiomyopathy in other diseases classified elsewhere I43 FAREED Murphy Patient is short of breath with his atrial fibrillation. For now he will continue with his current dose of diuretics. He will also continue with his current rate limiting medication in addition to his MICHELLE inhibitor. These were recently adjusted at his primary care doctor's office next Orders Orders: 3. Presence of implantable cardioverter-defibrillator (ICD) Z95.810 [facility] MRIS-ICD @[facility] Dr Angelo 01/01/18 FAREED Murphy .ICD is functioning appropriately. Pt has not had any discharges from their device, they will continue with regular scheduled ICD interrogations. Orders Orders: 4. Essential hypertension I10 FAREED Murphy Blood pressure is well controlled on current medications, we do not recommend any changes at this time. 5. Pure hypercholesterolemia E78.00 FAREED Murphy Patient will continue with current moderate intensity statin. 6. Pulmonary hypertension I27.20 Pulmonary pressure 55 mmhg per echo 04/14/2017 FAREED Murphy Patient will continue with his diuretics. This will continue to be monitored through periodic echocardiograms. Plan Detail Other Orders Orders: Additional Comments - FAREED Alcantara The above patient was discussed with Dr. Regalado, he agrees with plan of care. Thank you for allowing us to participate in patient's plan of care, if you have any questions please do not hesitate to call. This note was generated using a voice recognition system and there may be incorrect words, spelling or punctuation errors that were not noted when reviewing the office note prior to saving. Follow Up 6 Weeks ([employer]/MMM) Coding Level of Care Code Off vis,est,level 4 Diagnoses Persistent atrial fibrillation I48.1 Atrial fibrillation type: persistent Cardiomyopathy in other diseases classified elsewhere I43 Presence of implantable cardioverter-defibrillator (ICD) Z95.810 Essential hypertension I10 Hypertension type: essential hypertension Pure hypercholesterolemia E78.00 Hyperlipidemia type: pure hypercholesterolemia Pulmonary hypertension I27.20 Coding Level of Care Code Off vis,est,level 4 Diagnoses Persistent atrial fibrillation I48.1 Atrial fibrillation type: persistent Cardiomyopathy in other diseases classified elsewhere I43 Presence of implantable cardioverter-defibrillator (ICD) Z95.810 Essential hypertension I10 Hypertension type: essential hypertension Pure hypercholesterolemia E78.00 Hyperlipidemia type: pure hypercholesterolemia Pulmonary hypertension I27.20 Supplemental Info Supplemental Information Echocardiogram in 2018 demonstrated Severely dilated left ventricle. The estimated ejection fraction is 15 %. Transmitral diastolic flow velocities suggest severe (stage 3) diastolic dysfunction Mild to moderate (1-2+) tricuspid valve insufficiency. Pulmonary artery systolic pressure is 30 mmHg. Compared to the previous pulmonary pressures are better Contrast injection was performed. Compared to prior study, there is no significant change. Diagnostics Electrocardiogram 04/19/17 Echocardiogram 08/06/17 Chest X-Ray 04/19/17 05/20/18 1531 <Electronically signed by Lizeth GUERRIER> Date Lizeth GUERRIER 05/20/18 1600<Electronically signed by Brady Regalado MD> Cosigner Signature: Date (if applicable) Brady Regalado MD CC: Maico Rhodes MD BASIC METABOLIC Collected: 05/18/2018 Status: F Source: [facility] PROFILE ([facility]) 2:45 PM [facility] REPOSITORY TYPE CODE TESTS RESULT OUT OF RANGE REFERENCE UNITS LAB L501.0100 74-106 mg/dL High GLU 170 Result Comment: Fasting Glucose result greater than or equal to 126 mg/dL suggests DIABETES MELLITUS per A.D.A. criteria. Please note revised GLUCOSE reference range effective 2017. LAB L501.1000 7-18 mg/dL Normal BUN 15 LAB L501.1100 0.70-1.30 mg/dL Normal CREAT,SERUM 1.12 Result Comment: The validity of the calculated GFR AND GFRAA in patients over 70 years has not been determined. Clinical correlation is essential. LAB L501.1110 >60 mL/min Normal EST GFR 72 Result Comment: Non- GFR Calc LAB L501.1115 >60 mL/min Normal EST GFR - AA 87 Result Comment: GFR Calc LAB L501.1300 10-20 RATIO Normal BUN/CRE 13.4 LAB L501.2200 8.5-10.1 mg/dL CA Normal 9.0 LAB L501.5300 136-145 mmol/L NA Normal 143 LAB L501.5600 3.5-5.1 mmol/L K Normal 4.0 LAB L501.5900 98-107 mmol/L High CL 110 LAB L501.6100 21.0-32.0 mmol/L Normal CO2 23.0 LAB L501.6200 5-15 Normal GAP 10 Performed By: #### L500.2500 #### [facility] [address] [place], [address] MICROALB/CREAT RATIO Collected: 05/11/2018 Status: F Source: [facility] 11:00 AM [facility] REPOSITORY TYPE CODE TESTS RESULT OUT OF REFERENCE UNITS RANGE LAB 69430017(L 0.0-1.9 mg/dL OINC) Ur Normal Microalbumin 0.8 LAB 82937211(L 20.0-300.0 mg/dL OINC) Ur Creat Normal 143.0 LAB 52407104(L 0-30 ug/mg OINC) Microalb/Creat Normal 6 Performed By: #### [id number] #### [facility] [address] [place] [address] TSH Collected: 05/07/2018 Status: F Source: [place] 8:04 AM [facility] REPOSITORY TYPE CODE TESTS RESULT OUT OF RANGE REFERENCE UNITS LAB [id number](LO 0.30-5.60 mcIU/mL INC) High TSH 5.94 Performed By: #### [id number] #### [facility] [address] [place] [id number] CMP Collected: 05/07/2018 Status: F Source: [place] 8:04 AM [facility] REPOSITORY TYPE CODE TESTS RESULT OUT OF RANGE REFERENCE UNITS LAB 73896133(L 70-99 mg/dL OINC) High Glucose Lvl 172 LAB 37482870(L 6-23 mg/dL OINC) High BUN 25 LAB 6571150(LO 0.5-1.3 mg/dL INC) Normal Creatinine 1.1 LAB 76785685(L 8.6-10.3 mg/dL OINC) Calcium Normal Lvl 9.7 LAB 00045258(L 136-145 mEq/L OINC) Sodium Normal Lvl 140 LAB 30773645(L 3.5-5.3 mEq/L OINC) Normal Potassium Lvl 3.8 LAB 44367493(L 98-107 mEq/L OINC) Chloride Normal 104 LAB 11857872(L 21.0-32.0 mEq/L OINC) CO2 Normal 30.0 LAB 65632268(L 33-120 Int._Unit/ OINC) L Alk Phos Normal 64 LAB 67585319(L 0.00-1.20 mg/dL OINC) Bili Normal Total 0.87 LAB 59721415(L 3.4-5.0 gm/dL OINC) Albumin Normal Lvl 4.3 LAB 76049887(L 6.4-8.2 gm/dL OINC) Total Normal Protein 6.5 LAB 58733280(L 10-52 Int._Unit/ OINC) L ALT Normal 21 LAB 89195643(L 9-39 Int._Unit/ OINC) L AST Normal 13 LAB 09552882(L 5.4-30.0 ratio OINC) Normal BUN/Creat Ratio 22.7 LAB [id number](L 10-20 mEq/L OINC) AGAP Normal 10 LAB 45246611(L 2.0-4.0 G/DL OINC) Globulin Normal 2.0 LAB 87351946(L 1.1-1.9 ratio OINC) High A/G Ratio 2.0 Performed By: #### [id number] #### [facility] [employer] [facility] [place] [address] EGFR Collected: 05/07/2018 Status: F Source: [facility] 8:04 [facility] REPOSITORY Order Comment: Order added by Discern Expert. TYPE CODE TESTS RESULT OUT OF RANGE REFERENCE UNITS LAB [id number](LO mL/min/1.73 INC) m2 Normal eGFR >60 LAB 76176495(LO mL/min/1.73 INC) m2 Normal eGFR AA >60 Performed By: #### [id number] #### [facility] [address] [place] [address] LIPID PROFILE Collected: 05/07/2018 Status: F Source: [place] 8:04 [facility] REPOSITORY TYPE CODE TESTS RESULT OUT OF RANGE REFERENCE UNITS LAB 38326055(LO 0-199 mg/dL INC) Normal Chol 154 Result Comment: TOTAL CHOLEESTEROL: <200 NORMAL 200 - 239 BORDERLINE HIGH >240 HIGH LAB 86168302(LOINC) 40-60 mg/dL Low HDL 32 LAB 07137583(LOINC) 0-130 mg/dL Normal LDL 67 Result Comment: <100 OPTIMAL 100-129 NEAR / ABOVE OPTIMAL 130-159 BORDERLINE HIGH 160-189 HIGH >190 VERY HIGH CALC LDL NOT VALID WHEN TRIGLYCERIDE IS >400 MG/DL LAB 59892809(LOINC) 0-149 mg/dL High Trig 276 Result Comment: AGE DESIRABLE BORDERLINE HIGH 91 D - 9 Y 0 - 74 75 - 99 > 100 10 - 19 Y 0 - 89 90 - 129 > 130 20 -24 Y 0 - 114 115 - 149 > 150 > 25 0 - 149 150 - 199 200 - 499 LAB 56009774(LOINC) 0-40 mg/dL High VLDL 55 Performed By: #### [id number] #### [facility] [employer] [address] [place] [address] HGBA1C Collected: 05/07/2018 Status: F Source: [place] 8:04 AM [facility] REPOSITORY TYPE CODE TESTS RESULT OUT OF REFERENCE UNITS RANGE LAB [id number]( 4.0-6.3 % LOINC) High Hemoglobin A1c 9.5 Performed By: #### [id number] #### [facility] Manual Subsection [facility] [place] [address] BMP Collected: 03/06/2018 Status: F Source: [place] 10:32 AM [facility] REPOSITORY TYPE CODE TESTS RESULT OUT OF RANGE REFERENCE UNITS LAB [id number](L 10-20 mEq/L OINC) AGAP Normal 11 LAB 93445662(L 70-99 mg/dL OINC) High Glucose Lvl 267 LAB 40220832(L 6-23 mg/dL OINC) High BUN 24 LAB 6509135(LO 0.5-1.3 mg/dL INC) Normal Creatinine 1.0 LAB 93907437(L 5.4-30.0 ratio OINC) Normal BUN/Creat Ratio 24.0 LAB 73009615(L 8.6-10.3 mg/dL OINC) Calcium Normal Lvl 9.9 LAB [id number](L 136-145 mEq/L OINC) Sodium Normal Lvl 137 LAB 55482991(L 3.5-5.3 mEq/L OINC) Normal Potassium Lvl 4.2 LAB 99912850(L 98-107 mEq/L OINC) Chloride Normal 102 LAB 38216897(L 21.0-32.0 mEq/L OINC) CO2 Normal 28.0 Performed By: #### [id number] #### [facility] [employer] [address] [place], [place] [id number] EGFR Collected: 03/06/2018 Status: F Source: [place] 10:32 AM [facility] REPOSITORY Order Comment: Order added by Discern Expert. TYPE CODE TESTS RESULT OUT OF RANGE REFERENCE UNITS LAB [id number](LO mL/min/1.73 INC) m2 Normal eGFR >60 LAB 92204524(LO mL/min/1.73 INC) m2 Normal eGFR AA >60 Performed By: #### [id number] #### [facility] [place] [id number] XR KNEE COMPLETE Observed: 02/19/2018 Status: F Source: [place] 12:51 PM [facility] REPOSITORY Exam Date/Time: 02/19/2018 12:59 EDT Reason for Exam: Pain, Non Traumatic Report STUDY: XR Knee Complete Right; 02/19/2018 12:59 pm INDICATION: Pain, Non Traumatic. COMPARISON: None. ACCESSION NUMBER(S): [id number] ORDERING CLINICIAN: Maico Rhodes TECHNIQUE: 4 views of the right knee including AP, lateral and bilateral oblique projections were obtained. FINDINGS: There is no evidence of acute fracture or dislocation identified. Mild joint space narrowing is seen in the medial compartment of the right knee. The joint spaces are otherwise grossly well- preserved. No suprapatellar joint effusion is present. IMPRESSION: 1. No acute fracture or dislocation. FINAL REPORT Dictated: 02/20/2018 9:58 am Asif Acuña MD Signed (Electronic Signature): 02/20/2018 9:58 am Signed by: Asif Acuña MD Technologist: KP CHEM 6 Collected: 02/09/2018 Status: F Source: [facility] 11:49 AM [facility] REPOSITORY TYPE CODE TESTS RESULT OUT OF REFERENCE UNITS RANGE LAB BUN 7-22 mg/dL BUN 17 LAB NA 133-143 mmol/L Sodium 140 LAB K 3.5-5.0 mmol/L Potassium 3.7 LAB CL 98-108 mmol/L Chloride 102 LAB CO2 22-30 mmol/L Carbon Dioxide 30 LAB CREA 0.70-1.30 mg/dL Creatinine 0.85 LAB GAP 7-17 mmol/L Anion Gap 12 LAB BC BUN/CREA Ratio 20 LAB GFR >60 mL/min/1.73 sqM Est GFR,non >60 Panamanian LAB GFRA >60 mL/min/1.73 sqM Est GFR, >60 Performed By: #### CHM6 #### [facility] [place] [address] [place] [address] [place] [address] CMP Collected: 01/23/2018 Status: F Source: [place] 8:01 AM [facility] REPOSITORY TYPE CODE TESTS RESULT OUT OF RANGE REFERENCE UNITS LAB [id number](L 70-99 mg/dL OINC) High Glucose Lvl 232 LAB 90505032(L 8.4-10.2 mg/dL OINC) Calcium Normal Lvl 8.9 LAB 84145949(L 136-145 mEq/L OINC) Sodium Normal Lvl 137 LAB 56510206(L 3.5-5.1 mEq/L OINC) Low Potassium Lvl 3.2 LAB 38137030(L 98-107 mEq/L OINC) Chloride Normal 102 LAB 89635062(L 24.0-30.0 mEq/L OINC) CO2 Normal 27.8 LAB 61889461(L 7-18 mg/dL OINC) High BUN 21 LAB 6801089(LO 0.6-1.3 mg/dL INC) Normal Creatinine 0.8 LAB 33022899(L 42-121 Int._Unit/ OINC) L Alk Phos Normal 69 LAB 23223569(L 0.2-1.0 mg/dL OINC) Bili Normal Total 0.7 LAB 02144630(L 3.2-5.0 G/DL OINC) Albumin Normal Lvl 4.0 LAB 76718105(L 6.4-8.3 G/DL OINC) Total Normal Protein 6.6 LAB 74252743(L 10-40 Int._Unit/ OINC) L ALT Normal 33 LAB 11092057(L 10-42 Int._Unit/ OINC) L AST Normal 26 LAB 00380570(L 5.4-30.0 ratio OINC) Normal BUN/Creat Ratio 26.2 LAB 38722879(L 2.0-4.0 G/DL OINC) Globulin Normal 2.6 LAB 10625364(L 1.1-1.9 ratio OINC) A/G Normal Ratio 1.5 Performed By: #### [id number] #### [facility] [employer] [address] [place] [address] EGFR Collected: 01/23/2018 Status: F Source: [place] 8:01 AM [facility] REPOSITORY Order Comment: Order added by Discern Expert. TYPE CODE TESTS RESULT OUT OF RANGE REFERENCE UNITS LAB 39790807(LO mL/min/1.73 INC) m2 Normal eGFR >60 LAB 41312374(LO mL/min/1.73 INC) m2 Normal eGFR AA >60 Performed By: #### [id number] #### [facility] [place] [id number] LDL DIRECT Collected: 01/23/2018 Status: F Source: [place] 8:01 AM [facility] REPOSITORY TYPE CODE TESTS RESULT OUT OF RANGE REFERENCE UNITS LAB 50652371(LO 0-130 mg/dL INC) Normal LDL Direct 83 Result Comment: LDL CHOLESTEROL: <100 OPTIMAL 100-129 NEAR / ABOVE OPTIMAL 130-159 BORDERLINE HIGH 160-189 HIGH >190 VERY HIGH CALC LDL NOT VALID WHEN TRIGLYCERIDE IS >400 MG/DL Performed By: #### [id number] #### [facility] [place] [id number] HGBA1C Collected: 01/23/2018 Status: F Source: [place] 8:01 AM [facility] REPOSITORY TYPE CODE TESTS RESULT OUT OF REFERENCE UNITS RANGE LAB [id number]( 4.0-6.3 % LOINC) High Hemoglobin A1c 8.7 Performed By: #### [id number] #### [facility] Chemistry Manual Subsection [facility] [place] [address] EP PROCEDURE - Observed: 01/01/2018 Status: F Source: [facility] EPS/ABLATION/DEVICE 8:15 PM [facility] REPOSITORY This is a 57 y.o. male with long standing NICM, who was referred for sub-q ICD. ECG showed NSR with narrow QRS. EF by echo 15%. Conclusions Successful implantation of Sub-q ICD with adequate sensing and lead impedance. DFT successfully performed. I supervised administration of anesthesia and was present throughout the case until recovery. Recommendations: 1. Incisions closed with Dermabond. Remove outer dressing after 48 hours. 2. Patient should follow up with device clinic. 3. Patient should follow up with Dr. Angelo once and then continue follow up with his primary [facility]. 4. Hold anticoagulation for 24 hours (No heparin IV or NOAC, ok to continue warfarin). XR CHEST PA AND Observed: 01/01/2018 Status: F Source: [facility] LATERAL 6:11 PM [facility] REPOSITORY EXAM: XR CHEST PA AND LATERAL, 01/01/2018 17:48 PM COMPARISON: No prior studies available for comparison. CLINICAL INDICATIONS: Rule out Pneumothorax Following Device Implantation RELEVANT CLINICAL HISTORY: Please complete this Xray within 2-4 hours from the completion of the procedure. Please read as a stat wet read. Please page the on-call EP fellow at [phone] with any emergent finding such as pneumothorax.; FINDINGS: (Adequate technique) Implanted Devices: Interval placement of left lower lateral chest /abdominal wall external ICD unit with ICD lead tip in the left of midline overlying the mid/lower chest. Chest Wall: Normal Mahogany: Normal Mediastinum: Normal Pleural Spaces: No pleural effusion. No pneumothorax. Lungs: Mild left lower lobe basilar and superior segment subsegmental atelectasis. No lung consolidation. Cardiac Silhouette: Normal, without overall or specific chamber enlargement, or abnormal calcification Thoracic Aorta: Normal Pulmonary Vessels: Normal, without PVH IMPRESSION: Interval placement of left lower lateral chest/abdominal wall external ICD unit with ICD lead in the mid to lower anterior chest to the left of midline. Correlate clinically for desired location of ICD lead. No pneumothorax. Mild left lower lobe subsegmental atelectasis. No dense consolidation or pleural effusion. ,PLATELET,DIFFERENTIAL - CCL Collected: Status: F Source: [facility] 01/01/2018 10:53 [facility] REPOSITORY TYPE CODE TESTS RESULT OUT OF REFERENCE UNITS RANGE LAB WBC 4.23-9.07 K/uL WBC Count 6.12 LAB RBC 4.63-6.08 M/uL RBC Count 4.43 Low LAB HGB 13.7-17.5 g/dL Hemoglobin 14.3 LAB HCT 40.1-51.0 % Hematocrit 41.1 LAB MCV 79.0-92.2 fL Mean Cell 92.8 High Volume LAB MCH 25.7-32.2 pg Mean Cell 32.3 High Hgb LAB MCHC 32.3-36.5 g/dL Mean Cell 34.8 Hgb Conc LAB RDW 11.6-14.4 % RBC 12.7 Distribution LAB PLT 163-337 K/uL Platelet 179 Count LAB MPV 9.4-12.4 fL Mean 11.5 Platelet Volume LAB NRBC 0.0-0.2 /100 WBC NUCLEATED 0.0 RBC LAB DTYPE Electronic DIFFERENTIAL TYPE Differential LAB IGRE % IMMATURE 0.2 GRANS % LAB SEGS % NEUTROPHIL 63.2 SEGMENTED LAB LYM % LYMPHOCYTE 25.3 % LAB MON % MONOCYTE % 8.7 LAB EOS % EOSINOPHIL 1.8 % LAB BASO % BASOPHIL % 0.8 LAB IGABS <0.04 K/uL IMMATURE <0.04 GRANS ABSOLUTE LAB SBANS 1.78-5.38 K/uL SEGS + 3.87 Bands,Absolute LAB ALYM 1.32-3.57 K/uL Abs Lymph 1.55 LAB AMONO 0.30-0.82 K/uL Abs Mathews 0.53 LAB AEOS <0.55 K/uL Abs Eos 0.11 LAB ABASO <0.09 K/uL Abs Baso 0.05 Performed By: #### LISA, LAUREL, M7 #### [facility] [address] [place] [address] PT*PTT Collected: 01/01/2018 Status: F Source: [facility] 10:53 [facility] REPOSITORY TYPE CODE TESTS RESULT OUT OF RANGE REFERENCE UNITS LAB PT 11.9-14.2 sec PT 14.1 LAB INR 0.9-1.1 INR 1.1 LAB PTT 24.0-34.3 sec PTT 25.8 Performed By: #### LISA, [facility], [facility] #### [place] [address] CHEM 7 Collected: 01/01/2018 Status: F Source: [facility] 10:53 [facility] REPOSITORY TYPE CODE TESTS RESULT OUT OF REFERENCE UNITS RANGE LAB BUN 7-22 mg/dL BUN 17 LAB NA 133-143 mmol/L Sodium 140 LAB K 3.5-5.0 mmol/L Potassium 3.8 LAB CL 98-108 mmol/L Chloride 105 LAB CO2 22-30 mmol/L Carbon Dioxide 26 LAB GLUC 70-99 mg/dL Glucose High 227 LAB CREA 0.70-1.30 mg/dL Creatinine 0.83 LAB GAP 7-17 mmol/L Anion Gap 13 LAB BC BUN/CREA Ratio 20 LAB OSMC 278-305 mOsm/kg Osmolality 302 (Calc) LAB GFR >60 mL/min/1.73 sqM Est GFR,non >60 Panamanian LAB GFRA >60 mL/min/1.73 sqM Est GFR, >60 Performed By: #### CBCDFC, PTPTT, CHM7 #### [facility] [address] [place] [address] [facility] [address] [place], [place] [address] CARDIOLOGY VISIT Observed: 10/24/2017 Status: F Source: [place] REPORT 4:13 PM [facility] REPOSITORY [facility] [address] [facility] [place] [address] OFFICE VISIT Date of Service: 10/21/17 MR#: [id number] Acct: [id number] Name: CINDY LOZANO Rep #: [id number] : 1960 Provider: Lizeth Rogers Age/Sex: 57/M Location: [facility] Status: Signed HPI HPI Details: CINDY LOZANO, is a 57 M who presents to the office today for a cardiovascular follow-up. He has a history of nonischemic cardiomyopathy. He had a heart catheterization in 2012 at the time of his initial presentation which did not demonstrate any coronary artery disease. He again had congestive heart failure in 2016 and was noted to have an ejection fraction of 15% with pulmonary hypertension. He has been on aggressive medical management since that time. Repeat echocardiogram in July 2017 demonstrated a continued ejection fraction of 15%. 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 He does not have any chest discomfort/heaviness/tightness. He does not have any palpitations that he is aware of. He does occasionally have lightheadedness. He does not have any near-syncope or syncope. He does not have any lower extremity edema. He does not have any symptoms of claudication. Intake Vital Signs10/21/17 Height 6 ft 10/21/17 Weight: 306 lb 10/21/17 Body Mass Index (BMI) 41.5 Intake Visit Reasons: 3 M [employer] Required: No Accompanied by: none Is patient in pain?: No Allergies No Known Allergies Allergy (Verified 07/17/17 10:51) Medications furosemide 40 mg tablet 40 mg PO BID #180 tab 04/24/17 [Rx Confirmed 10/21/17] potassium chloride ER 20 mEq tablet,extended release(part/cryst) 20 meq PO BID #180 tab 04/24/17 [Rx Confirmed 10/21/17] aspirin 81 mg tablet,delayed release 81 mg PO DAILY@0800 #90 tab 07/17/17 [Rx Confirmed 07/17/17] atorvastatin 40 mg tablet 40 mg PO QHS #90 tab 07/17/17 [Rx Confirmed 10/21/17] carvedilol 25 mg tablet 25 mg PO BID 07/17/17 [History Confirmed 10/21/17] losartan 25 mg tablet 25 mg PO QDAY 07/17/17 [History Confirmed 10/21/17] Ejection fraction %: 15 to 19 PFSH Medical History Cardiomyopathy in other diseases classified elsewhere (Chronic) Tobacco abuse (Resolved) Snoring (Chronic) Dyspnea on exertion (Chronic) Nonrheumatic tricuspid (valve) insufficiency (Chronic) Nonrheumatic mitral valve insufficiency (Chronic) Chronic systolic (congestive) heart failure (Chronic) Dilated cardiomyopathy (Chronic) Atrial fibrillation (Chronic) Hypertension (Chronic) Hyperlipidemia (Chronic) Pulmonary hypertension (Chronic) Surgical History History of left heart catheterization (Chronic) Family History Mother CAD (coronary artery disease) Onset under age 65 Father CAD (coronary artery disease) ONset under age 55 Social History Smoking Status: Former smoker quit date: 01/25/17 pack-years: 40 alcohol intake: never caffeine: Yes Type: carbonated beverages Number of servings: 2 ROS Const Const: Positive for fatigue and other (SOB just getting showered in am.); negative for weakness, body ache, fever(s), headache(s), chills, frequent falls, night sweats, daytime sleepiness, difficulty sleeping, excessive sweating, weight gain, weight loss, increased appetite, poor appetite or anorexia Eyes Eyes: Negative for blind spots, loss of peripheral vision, transient loss of vision, blurry vision, change in vision, double vision, floaters, tunnel vision or other ENT ENT: Negative for headache(s) or balance problems Cardio Chest Pain: No Palpitations: No Edema: None Muscle aches with walking: None Resp Respiratory: Positive for SOB with activity; negative for SOB orthopnea\SOB lying down, Coughing up blood/hemoptysis, chest congestion, pain on inspiration, snoring, stridor, wheezing, crackles, paroxysmal nocturnal dyspnea, other or SOB at rest GI GI: Positive for other (Had overnight oximetry to see if he can have O2 at night); negative nausea, vomiting, heartburn, constipation, belching, bloating, cramping, vomiting blood/hematemesis, bright, red blood in stools, black,tarry stools, loose stools or Difficulty Swallowing : Negative for hematuria, frequent nighttime urination/ nocturia, erectile dysfunction or abnormal vaginal bleeding Musc Musc: Negative for balance problems, muscle aches/ myalgia, muscle weakness or joint pain Skin Skin: Negative redness, non-healing lesions, rash, unusual bruising, skin ulcer, wounds, jaundice or other Neuro Neuro: Negative for weakness, headache(s), frequent falls, blurry vision or double vision Efraín Hematologic/Lymphatic: Negative for easy bleeding, easy bruising, enlarged lymph nodes or other Endo Endo: Positive for fatigue; negative for excessive sweating Psych Psych: Negative for anxiety, depression, thoughts of harming anyone, thoughts of harming yourself, visual hallucinations, panic attacks or audible hallucinations Allergy Allergy/Immunology: Negative for rash Cardiology Exam Const Appearance: cooperative, no acute distress and well developed Orientation: alert, awake and oriented x3 Head Head: normocephalic and atraumatic Mouth: moist mucous membranes Eyes General: appearance normal, both eyes and all related structures Conjunctivae: conjunctivae normal Pupils: PERRL EOM: EOM intact bilaterally Neck Neck: normal visual inspection, no lymphadenopathy and no JVD Carotids: Negative bruit Neck Mass: Negative Neck mass Chest Chest inspection: normal inspection of the chest and symmetric chest movement Auscultation: Bilateral: Clear to Auscultation Cardio Palpation: normal PMI Rate: regular rate Rhythm: regular rhythm Heart sounds: S1 normal and S2 normal; negative rub, gallop or murmur GI GI: normal to inspection, soft, no hepatosplenomegaly and bowel sounds present; negative tender Neuro General: alert, awake, oriented x3, CN's II-XI intact bilaterally and moves all extremities Extremities Pulses: Normal: Right Posterior Tibial Pulse, Left Posterior Tibial Pulse, Right Radial Pulse, Left Radial Pulse Lower Extremity Edema: None: Bilateral Psych Psychological: normal affect Supplemental Info Echocardiogram in 2018 demonstrated Severely dilated left ventricle. The estimated ejection fraction is 15 %. Transmitral diastolic flow velocities suggest severe (stage 3) diastolic dysfunction Mild to moderate (1-2+) tricuspid valve insufficiency. Pulmonary artery systolic pressure is 30 mmHg. Compared to the previous pulmonary pressures are better Contrast injection was performed. Compared to prior study, there is no significant change. Assessment AND Plan 1. Cardiomyopathy in other diseases classified elsewhere I43 Plan - FAREED Alcantara Patient does continue to have decreased ejection fraction of 15%. He does have a known left bundle branch block. Patient would qualify for a by V ICD. He is agreeable to proceed with procedure. Will refer him to Dr. Angelo at [facility] for this. He will continue with his aggressive medical management of beta-cassie, ARB and diuretic. Patient Instructions - FAREED Alcantara If you do not hear from Dr. Angelo by the end of next week, give our office a call. Orders Referrals: 2. Essential hypertension I10 Plan - FAREED Alcantara Blood pressure is well controlled on current medications, we do not recommend any changes at this time. 3. Pulmonary hypertension I27.20 Pulmonary pressure 55 mmhg per echo 04/14/2017 Plan - FAREED Alcantara Patient will continue to be monitored with periodic echocardiograms. He will continue with his current dose of diuretics. 4. Pure hypercholesterolemia E78.00 Plan - FAREED Alcantara Patient will continue with his current statin medication. We will continue to follow with labs as deemed appropriate. Plan Detail Other Orders Referrals: Additional Comments - FAREED Alcantara The above patient was discussed with Dr. Regalado, he agrees with plan of care. Thank you for allowing us to participate in patient's plan of care, if you have any questions please do not hesitate to call. This note was generated using a voice recognition system and there may be incorrect words, spelling or punctuation errors that were not noted when reviewing the office note prior to saving. Follow Up 3 Months (MMM/[employer]) Coding Level of Care Code Off vis,est,level 4 Diagnoses Cardiomyopathy in other diseases classified elsewhere I43 Essential hypertension I10 Hypertension type: essential hypertension Pulmonary hypertension I27.20 Pure hypercholesterolemia E78.00 Hyperlipidemia type: pure hypercholesterolemia Coding Level of Care Code Off vis,est,level 4 Diagnoses Cardiomyopathy in other diseases classified elsewhere I43 Essential hypertension I10 Hypertension type: essential hypertension Pulmonary hypertension I27.20 Pure hypercholesterolemia E78.00 Hyperlipidemia type: pure hypercholesterolemia 10/22/17 0947 <Electronically signed by Lizeth Rogers PA> Date Lizeth GUERRIER 10/24/17 1613<Electronically signed by Brady Regalado MD> Cosigner Signature: Date (if applicable) Brady Regalado MD CC: Maico Rhodes MD [facility] Collected: 10/20/2017 Status: F Source: [place] 8:06 AM [facility] REPOSITORY TYPE CODE TESTS RESULT OUT OF RANGE REFERENCE UNITS LAB 67626833(L 70-99 mg/dL OINC) High Glucose Lvl 163 LAB 73891642(L 8.4-10.2 mg/dL OINC) Calcium Normal Lvl 9.2 LAB 61460536(L 136-145 mEq/L OINC) Sodium Normal Lvl 142 LAB 17038597(L 3.5-5.1 mEq/L OINC) Normal Potassium Lvl 4.0 LAB 40855607(L 98-107 mEq/L OINC) Chloride Normal 101 LAB 54188971(L 24.0-30.0 mEq/L OINC) High CO2 30.7 LAB 45096277(L 7-18 mg/dL OINC) BUN Normal 15 LAB 2126546(LO 0.6-1.3 mg/dL INC) Normal Creatinine 1.0 LAB 80990973(L 42-121 Int._Unit/ OINC) L Alk Phos Normal 67 LAB 17535074(L 0.2-1.0 mg/dL OINC) Bili Normal Total 0.9 LAB 92376220(L 3.2-5.0 G/DL OINC) Albumin Normal Lvl 3.9 LAB 25386574(L 6.4-8.3 G/DL OINC) Low Total Protein 6.2 LAB 14817908(L 10-40 Int._Unit/ OINC) L ALT Normal 34 LAB 20434830(L 10-42 Int._Unit/ OINC) L AST Normal 26 LAB 00348093(L 5.4-30.0 ratio OINC) Normal BUN/Creat Ratio 15.0 LAB 83937112(L 2.0-4.0 G/DL OINC) Globulin Normal 2.3 LAB 33605237(L 1.1-1.9 ratio OINC) A/G Normal Ratio 1.7 Performed By: #### [id number] #### [facility] [employer] [place] [id number] EGFR Collected: 10/20/2017 Status: F Source: [place] 8:06 AM [facility] REPOSITORY Order Comment: Order added by Discern Expert. TYPE CODE TESTS RESULT OUT OF RANGE REFERENCE UNITS LAB 18465941(LO mL/min/1.73 INC) m2 Normal eGFR >60 LAB 53477970(LO mL/min/1.73 INC) m2 Normal eGFR AA >60 Performed By: #### [id number] #### [facility] [employer] [place] [id number] LIPID PROFILE Collected: 10/20/2017 Status: F Source: [place] 8:06 AM [facility] REPOSITORY TYPE CODE TESTS RESULT OUT OF RANGE REFERENCE UNITS LAB 05898026(LO 50-200 mg/dL INC) Normal Chol 155 Result Comment: TOTAL CHOLEESTEROL: <200 NORMAL 200 - 239 BORDERLINE HIGH >240 HIGH LAB 61835866(LOINC) >=41 mg/dL Low HDL 35 LAB 85019067(LOINC) 0-130 mg/dL Normal LDL 81 Result Comment: <100 OPTIMAL 100-129 NEAR / ABOVE OPTIMAL 130-159 BORDERLINE HIGH 160-189 HIGH >190 VERY HIGH CALC LDL NOT VALID WHEN TRIGLYCERIDE IS >400 MG/DL LAB 93970003(LOINC) 35-150 mg/dL High Trig 196 Result Comment: <150 NORMAL 150-199 BORDERLINE HIGH 200-499 HIGH >500 VERY HIGH LAB 41886150(LOINC) Normal VLDL 39 Performed By: #### [id number] #### [facility] [address] [place] [address] ECHO, COMPLETE W/ Observed: 08/06/2017 Status: F Source: [place] 5:43 PM [facility] REPOSITORY [facility] Cardiovascular Services [address] [address] Echo Complete W/ Contrast 08/06/17 1252 MR#: [id number] Acct: [id number] Name: CINDY LOZANO Rep #: [id number] : 1960 57 From: Brady Regalado MD Attending Dr: Brady Regalado MD Status: REG CLI Ordering Dr: Brady eRgalado MD Date: 08/06/17 Location: CVS Sex: M C Admitted: Version 2 Reason For Study: DYSPNEA Left Ventricle Severely dilated left ventricle. The estimated ejection fraction is 15 %. Transmitral diastolic flow velocities suggest severe (stage 3) diastolic dysfunction. There is severe global hypokinesis of the left ventricle. Right Ventricle Normal RV size. Normal systolic function. Atria The left atrium is severely enlarged. The right atrium is moderately enlarged. Mitral Valve Normal mitral valve. Mild (1+) eccentric mitral valve insufficiency. Tricuspid Valve Normal tricuspid valve. Mild to moderate (1-2+) tricuspid valve insufficiency. Pulmonary artery systolic pressure is 30 mmHg. Aortic Valve Normal aortic valve. Pulmonic Valve Normal pulmonic valve. Great Vessels Normal aortic root. The pulmonary artery is normal size. Normal inferior vena cava. Pericardium/Pleural No pericardial effusion. MMode/2D Measurements AND Calculations LVIDd: 6.8 cm IVSd: 0.94 cm LA dimension: 5.3 cm LVIDs: 6.2 cm LVPWd: 0.99 cm RVDd: 3.9 cm FS: 8.4 % LAV(MOD-bp): 134.2 ml EDV(MOD-sp4): 251.1 ml EDV(MOD-sp2): 172.8 ml LAV(MOD-bp) Indexed: 53.5 ml/m2 ESV(MOD-sp4): 170.3 ml EF(MOD-sp2): 37.8 % LAV(MOD-sp2): 106.9 ml EF(MOD-sp4): 32.2 % LAV(MOD-sp4): 156.1 ml SV(MOD-sp4): 80.8 ml SV(MOD-sp2): 65.3 ml LA A4 area: 38.4 cm2 RA A4 area: 21.5 cm2 Doppler Measurements AND Calculations MV E max abner: 82.4 cm/sec Ao V2 max: 154.0 cm/sec LV V1 max: 102.3 cm/sec MV A max abner: 39.3 cm/sec Ao max P.5 mmHg LV V1 max P.2 mmHg MV E/A: 2.1 TR max abner: 261.1 cm/sec TR max P.3 mmHg Interpretation Summary Severely dilated left ventricle. The estimated ejection fraction is 15 %. Transmitral diastolic flow velocities suggest severe (stage 3) diastolic dysfunction Mild to moderate (1-2+) tricuspid valve insufficiency. Pulmonary artery systolic pressure is 30 mmHg. Compared to the previous pulmonary pressures are better Contrast injection was performed. Compared to prior study, there is no significant change. Ordering Physician: Brady Regalado Referring Physician: Brady Regalado Performed By: Tram Mclaughlin, FERCS, RVT 08/06/17 1743 Date Brady Regalado MD CC: Dimitry Rhodes; Brady Regalado MD Date Dictated: 08/06/17 1252 Date Transcribed: [id number]/06/[id number] Wireless Network Engineer: Signed BASIC METABOLIC Collected: 07/17/2017 Status: F Source: [place] PROFILE (BMP) 11:36 AM [facility] REPOSITORY TYPE CODE TESTS RESULT OUT OF RANGE REFERENCE UNITS LAB L501.0100 74-106 mg/dL High GLU 176 Result Comment: Fasting Glucose result greater than or equal to 126 mg/dL suggests DIABETES MELLITUS per A.D.A. criteria. Please note revised GLUCOSE reference range effective 2017. LAB L501.1000 7-18 mg/dL Normal BUN 13 LAB L501.1100 0.70-1.30 mg/dL Normal CREAT,SERUM 0.98 Result Comment: The validity of the calculated GFR AND GFRAA in patients over 70 years has not been determined. Clinical correlation is essential. LAB L501.1110 >60 mL/min Normal EST GFR 84 Result Comment: Non- GFR Calc LAB L501.1115 >60 mL/min Normal EST GFR - AA 102 Result Comment: GFR Calc LAB L501.1300 10-20 RATIO Normal BUN/CRE 13.3 LAB L501.2200 8.5-10.1 mg/dL CA Normal 8.5 LAB L501.5300 136-145 mmol/L NA Normal 143 LAB L501.5600 3.5-5.1 mmol/L K Normal 4.3 Result Comment: Slight Hemolysis, Result may be falsely increased. LAB L501.5900 98-107 mmol/L Normal CL 107 LAB L501.6100 21.0-32.0 mmol/L Normal CO2 30.0 LAB L501.6200 5-15 Normal 6 GAP Performed By: #### L500.2500 #### [facility] [address] [place], [address] CARDIOLOGY VISIT Observed: 07/17/2017 Status: F Source: [place] REPORT 11:17 AM [facility] REPOSITORY [facility] [address] [place] [address] OFFICE VISIT Date of Service: 07/17/17 MR#: [id number] Acct: [id number] Name: CINDY LOZANO Rep #: [id number] : 1960 Provider: Brady Regalado MD Age/Sex: 56/M Location: [facility] Status: Signed HPI HPI Chief Complaint: Follow-up visit. Details: CINDY LOZANO, is a 56 M who presents to the office today for a follow-up visit. He is a gentleman with a history of nonischemic cardiomyopathy. He had initially presented in 2012 with shortness of breath underwent a cardiac catheterization with demonstrated no evidence of obstructive coronary disease. He presented to the hospital again in March 2017 and congestive heart failure he was diuresed and an echocardiogram performed which demonstrated reduced ejection fraction of 15% with pulmonary hypertension with pulmonary systolic pressures in the mid 50s. He was treated with diuretics ARB beta blockers and potassium and has done well. His major complaint is fatigue he has had no shortness of breath as such. His beta-blockers have been titrated to a good level. He was also noted to have paroxysmal atrial fibrillation. He has had no dizziness or diaphoresis no near syncope or syncope. His physical exam today demonstrates clear lung hill regular rate and rhythm and S3 is present and no pedal edema. Intake Vital Signs07/17/17 Height 6 ft 07/17/17 Weight: 300 lb 07/17/17 Body Mass Index (BMI) 40.6 07/17/17 Blood Pressure 100/56 Intake Visit Reasons: 3 M FU Accompanied by: Allergies No Known Allergies Allergy (Verified 07/17/17 10:51) Medications furosemide 40 mg tablet 40 mg PO BID #180 tab 04/24/17 [Rx Confirmed 07/17/17] potassium chloride ER 20 mEq tablet,extended release(part/cryst) 20 meq PO BID #180 tab 04/24/17 [Rx Confirmed 07/17/17] aspirin 81 mg tablet,delayed release 81 mg PO DAILY@0800 #90 tab 07/17/17 [Rx Confirmed 07/17/17] atorvastatin 40 mg tablet 40 mg PO QHS #90 tab 07/17/17 [Rx Confirmed 07/17/17] carvedilol 25 mg tablet 25 mg PO BID 07/17/17 [History Confirmed 07/17/17] losartan 25 mg tablet 25 mg PO QDAY 07/17/17 [History Confirmed 07/17/17] Ejection fraction %: 20 to 24 PFSH Medical History Cardiomyopathy in other diseases classified elsewhere (Chronic) Tobacco abuse (Resolved) Snoring (Chronic) Dyspnea on exertion (Chronic) Nonrheumatic tricuspid (valve) insufficiency (Chronic) Nonrheumatic mitral valve insufficiency (Chronic) Chronic systolic (congestive) heart failure (Chronic) Dilated cardiomyopathy (Chronic) Atrial fibrillation (Chronic) Hypertension (Chronic) Hyperlipidemia (Chronic) Pulmonary hypertension (Chronic) Surgical History History of left heart catheterization (Chronic) Family History Mother CAD (coronary artery disease) Onset under age 65 Father CAD (coronary artery disease) ONset under age 55 Social History Smoking Status: Former smoker quit date: 01/25/17 pack-years: 40 ROS Const Const: Positive for fatigue and other (SOB just getting showered in am.); negative for weakness, body ache, fever(s), headache(s), chills, frequent falls, night sweats, daytime sleepiness, difficulty sleeping, excessive sweating, weight gain, weight loss, increased appetite, poor appetite or anorexia Eyes Eyes: Negative for blind spots, loss of peripheral vision, transient loss of vision, blurry vision, change in vision, double vision, floaters, tunnel vision or other ENT ENT: Negative for headache(s), dizziness, hearing loss, tinnitus, Nosebleed/epistaxis, balance problems, post nasal drip, lip swelling, tongue swelling, bleeding gums, hoarseness, neck pain, dry mouth or other Cardio Chest Pain: No Palpitations: Yes (Feels heart racing quite often) feels like its: fast Edema: Bilateral (None today but sometimes he does swell) Muscle aches with walking: None Resp Respiratory: Positive for SOB with activity (minimal activity, even showering), SOB at rest (soemtimes) and SOB orthopnea\SOB lying down (Has to keep head up to breathe); negative for Coughing up blood/hemoptysis, chest congestion, pain on inspiration, snoring, stridor, wheezing, crackles, paroxysmal nocturnal dyspnea or other GI GI: Positive for other (Had overnight oximetry to see if he can have O2 at night); negative nausea, vomiting, heartburn, constipation, belching, bloating, cramping, vomiting blood/hematemesis, bright, red blood in stools, black,tarry stools, loose stools or Difficulty Swallowing : Negative for hematuria, frequent nighttime urination/ nocturia, erectile dysfunction or abnormal vaginal bleeding Musc Musc: Negative for balance problems, muscle aches/ myalgia, muscle weakness or joint pain Skin Skin: Negative redness, non-healing lesions, rash, unusual bruising, skin ulcer, wounds, jaundice or other Neuro Neuro: Negative for weakness, headache(s), frequent falls, blurry vision, double vision, dizziness, lightheadedness, near syncope, syncope, orthostatic symptoms, confusion, memory loss, restless legs, vertigo, seizures, lack of coordination or other Efraín Hematologic/Lymphatic: Negative for easy bleeding, easy bruising, enlarged lymph nodes or other Endo Endo: Positive for fatigue; negative for excessive sweating, cold intolerance, heat intolerance, flushing, increased thirst/drinking, increased hunger, hair loss, hair growth or other Psych Psych: Negative for anxiety, depression, thoughts of harming anyone, thoughts of harming yourself, visual hallucinations, panic attacks or audible hallucinations Allergy Allergy/Immunology: Negative for lip swelling, Negative for tongue swelling, Negative for rash, Negative for throat swelling, Negative for hives Cardiology Exam Const Appearance: cooperative, healthy appearing, well developed, well groomed and no acute distress Nutritional Appearance: well nourished and average body habitus Orientation: alert, awake and oriented x3 Head Head: normal to inspection, normocephalic and atraumatic Ears: hearing grossly normal bilaterally and external ears normal Nose: external nose normal, nasal mucous membranes and turbinates normal, nares normal, septum normal, no nasal discharge Face and Sinus: face symmetric Mouth: oral mucosae normal, tongue normal, oropharynx normal and moist mucous membranes Teeth and gingiva: dentition normal Throat: posterior oropharynx normal, tonsils normal and uvula midline Eyes General: appearance normal, both eyes and all related structures Eyelids: eyelids normal Conjunctivae: conjunctivae normal Pupils: PERRL, normal by confrontation and accommodation normal EOM: EOM intact bilaterally Neck Neck: normal visual inspection, trachea midline and no JVD JVD: +5 Carotids: normal carotid upstroke and bounding pulses Chest Chest inspection: normal inspection of the chest, symmetric chest movement and normal respiratory effort Auscultation: Bilateral: Clear to Auscultation Cardio Palpation: normal PMI Rate: regular rate Rhythm: regular rhythm Heart sounds: S1 normal, S2 normal, normal, physiologic split S2 and positive S3; negative rub or murmur GI GI: normal to inspection, soft, no hepatosplenomegaly and bowel sounds present Neuro General: alert, awake, oriented x3, no focal sensory deficit, gait normal and moves all extremities Skin Skin: no rashes or lesions noted Extremities Pulses: Normal: Right Femoral Pulse, Left Femoral Pulse, Right Dorsalis Pedis Pulse, Left Dorsalis Pedis Pulse, Right Posterior Tibial Pulse, Left Posterior Tibial Pulse, Right Radial Pulse, Left Radial Pulse Lower Extremity Edema: None: Bilateral Musculoskel Musculoskeletal: No joint tenderness Psych Psychological: normal affect Assessment AND Plan 1. Dilated cardiomyopathy I42.0 Plan He does have a history of a dilated cardiomyopathy and he has been on therapy for at least 90 days at the maximum tolerated dosages. His ARB cannot be increased further due to hypotension. My recommendation will be to repeat his echocardiogram and if his ejection fraction remains less than 35% then I would recommend that he be a candidate for a primary prevention implantable defibrillator placement. I discussed above with him and tentatively he is agreeable. Orders Orders: 2. Chronic atrial fibrillation I48.2 Plan He does have a history of paroxysmal atrial fibrillation. At this time he appears to be maintaining sinus rhythm with occasional premature atrial and ventricular complexes. He does have a chads score of 1 and therefore he will remain on aspirin therapy only. Orders Orders: 3. Essential hypertension I10 Plan His blood pressure is under excellent control on the current medical therapy and I would not recommend that we make any changes at this time. 4. Pure hypercholesterolemia E78.00 Plan He does have a history of hyperlipidemia with a recent total cholesterol 210, triglycerides of 225, LDL of 137 and HDL of 28. He will continue with aggressive risk factor modification. 5. Obesity (BMI 35.0-39.9 without comorbidity) E66.9 Plan He will continue with exercise and diet to attempt to reduce his weight. 6. Snoring R06.83 Plan He likely has sleep apnea and this will be addressed in due course. Thank you for allowing me to participate in the care of your patient. Please don't hesitate to call if any issues arise Plan Detail Other Medications Refilled: Discontinued: Follow Up 3 Months (mmm) Coding Level of Care Code Off vis,est,level 5 Diagnoses Dilated cardiomyopathy I42.0 Chronic atrial fibrillation I48.2 Atrial fibrillation type: chronic Essential hypertension I10 Hypertension type: essential hypertension Pure hypercholesterolemia E78.00 Hyperlipidemia type: pure hypercholesterolemia Obesity (BMI 35.0-39.9 without comorbidity) E66.9 Snoring R06.83 Coding Level of Care Code Off vis,est,level 5 Diagnoses Dilated cardiomyopathy I42.0 Chronic atrial fibrillation I48.2 Atrial fibrillation type: chronic Essential hypertension I10 Hypertension type: essential hypertension Pure hypercholesterolemia E78.00 Hyperlipidemia type: pure hypercholesterolemia Obesity (BMI 35.0-39.9 without comorbidity) E66.9 Snoring R06.83 07/17/17 1117 <Electronically signed by Brady Regalado MD> Date Brady Regalado MD Cosigner Signature: Date (if applicable) CC: Dimitry Rhodes ALLERGIES ALLERGIES DATE TYPE / CODE NAME / CODE REACTION SEVERITY SOURCE 05/18/2018 Drug No Known Unknown [facility] Allergy/416 Allergies/[id number] Community 832944(SNOM 388(RXNORM) Hospital ED CT) Repository Drug/217631 No Known Mandaen 003(SNOMED [facility]ergies [facility] Rep[facility] Drug/894467 No Known Mandaen 003(SNOMED Medication On License Of [facility]) Allergies System Repository ENCOUNTERS ENCOUNTERS ADMIT/DISCHARGE ACCOUNT NUMBER ADMITTING ENCOUNTER LOCATION SOURCE CLASS 05/22/2018/ [id number] [facility] Repository 05/20/2018 [id number] [facility] 05/18/2018 [id number] [facility] 05/18/2018/ [id number] Ambulatory BMSBuilding:B [facility] 019 [facility] Repository 05/14/2018 [id number] Ambulatory Mandaen Mandaen [facility] ing[facility] [employer] System Repository 05/14/2018 [id number] [facility] Repository 05/14/2018/ [id number] Amb[facility]en 019 [facility] Repository 05/11/2018/ [id number] Ambulatory Mandaen Mandaen 019 Hospital[facility] Regional ing[facility] [employer] System Repository 05/11/2018 [id number] Ambulatory [address] [place] [address] Repository 05/07/2018/ [id number] Migel Ambulatory Mandaen Mandaen 019 [facility] ing:[facility] [employer] System Repository 05/07/2018 [id number] Ambulatory [address] [place] [address] Repository 03/13/2018 [id number] Ambulatory Building:[facility] Repository 03/06/2018/ [id number] Meredith Peoples Ambulatory Mandaen Mandaen 018 HospitalBuild Regional ing:[facility] Repository 03/06/2018 [id number] Ambulatory [address] [place] [address] Repository 02/19/2018/ [id number] Rhodes, Ambulatory Mandaen Mandaen 018 [facility] Repository 02/19/2018 [id number] Ambulatory [facility] Repository 02/10/2018/ [id number] Ambulatory Medical Mandaen 018 [facility] Med Repository AssocRoom: Room 1 02/09/2018 [id number] Ambulatory Building:CLR [facility] Repository 02/09/2018 [id number] Ambulatory Building:OPCP [facility] Repository 02/09/2018 [id number] [facility] 01/23/2018/ [id number] Rhodes, Ambulatory Mandaen Mandaen 018 [facility] ing:[facility] Repository 01/23/2018 [id number] Ambulatory [address] [place] [address] Repository 01/01/2018/ [id number] DEJUAN ANGELO [facility] [place] [address] SSRoom: [facility] Repository 12/02/2017 [id number] Ambulatory Building:[facility] Repository 11/13/2017 [id number] Ambulatory BMSBuilding:B University [facility] Repository 11/13/2017/ [id number] Ambulatory BMSBuilding:B Darvin 018 [facility] Repository 10/28/2017/ [id number] Ambulatory Medical [facility]andaen 018 [facility] Med Repository AssocRoom: Room 1 10/21/2017/ [id number] Ambulatory BMSBuilding:B University 018 [facility] Repository 10/20/2017/ [id number] Rhodes, Ambulatory [facility]en [facility]18 [facility] Repository 10/20/2017 [id number] Ambulatory [address] [place] [address] Repository 08/06/2017 [id number] Ambulatory Building:IMGL [facility] Repository 08/06/2017 [id number] Ambulatory [facility] ing:[facility] Repository 08/06/2017 [id number] Ambulatory BMSBuilding:W University [facility] Repository 07/29/2017/ [id number] Ambulatory Medical Mandaen 018 [facility] Med Repository AssocRoom: Room 2 07/17/2017 [id number] Ambulatory [facility] ing:LAB Repository 07/17/2017/ [id number] Ambulatory BMSBuilding:B [facility] 018 [facility] Repository 06/26/2017/ [id number] Ambulatory Medical [facility]andaen 018 [facility] Repository 06/20/2017/ [id number] Migel Ambulatory Mandaen Mandaen 018 [facility] ing[facility] Repository 05/29/2017/ [id number] Ambulatory Medical Mandaen 018 [facility] Med Repository AssocRoom: Room 1 PAYERS PAYERS ENCOUNTER GUARANTOR PAYER SUBSCRIBER SOURCE 05/22/2018 CINDY Ward Primary Insurance:[facility] CINDY Ward Mandaen PRYORDOB: [facility] PRYORDOB: [facility] CAREPolicy Number: [id number] [facility] Repository [address] [place] [address] Date:2018-05-[address] [place] [address] [id number] [place] [address]Fgy: Name:CD:[id number]: [facility] [id number], [place] () [address]WP: (980) () 000-0000 () 05/20/2018 CINDY Ward Primary CINDY Ward [facility] PRYORDOB: Insurance:[facility] PRYORDOB: [place] Number: [id number] [facility] [id number] [address] Date:3713-52-60Gqgh [address] [place] [address], Repository , [place] [address]Phl: Name:[facility] [place] [address]Yup: (HP)Tel: [phone]) ([phone]) [phone] () 05/18/2018 CINDY Ward Primary CINDY Ward University PRYOR48 SR Insurance:[facility] PRYORDOB: Community [address] [place] [address] CARE [id number] Hospital , [place] [address]Ucr: Number: Repository [id number] () Date:8290-73-01UD [address]VEMNFZM [place] [id number]: 05/18/2018 Secondary NOT GIVENUNK University Insurance:SELF PAY [facility] Number: Effective Repository Date:2018-05-18 05/18/2018 CINDY Ward Primary CINDY Ward Darvin PRYOR48 STATE Insurance:[facility] PRYORDOB: Community ROUTE CARE [address]Cesllp [id number] Number: Repository , [place] [address]Ywx: [id number] Date:4163-58-59ZG [address] ) [address]8861XYPOFEW [place] [id number]: 05/18/2018 Secondary NOT GIVENUNK Darvin Insurance:SELF PAY [facility] Number: Effective Repository Date:2018-05-18 05/14/2018 CINDY Ward Primary Insurance:[facility] CINDY Ward Mandaen PRYORDOB: [facility] PRYORDOB: [facility] Number: [id number] System STATE R[address]TE Effective STATE ROUTE Repository [address] [place] [address] Date:2018-05-14 - [address] [place] [address] [id number] [place] [address]Uzh: Name:CD:[id number]: [address]HZDC[address], [place] (HP) [address]QZ: (800) (HP) 000-0000 (WP) 05/14/2018 CINDY Ward Primary Insurance:1500 CINDY Diamond PRYORDOB: [facility] PRYORDOB: [facility] CAREPolicy Number: [id number] System STATE ROUTE Effective STATE ROUTE Repository [address] [place] [address] Date:2018-05-14 - [address] [place] [address] [id number] [place] [address]Eyo: Name:CD:[id number] [place] [address]Nre: [address]DYFUZPD, [place] (HP) [phone]: (800) (HP) 000-0000 (WP) 05/14/2018 CINDY Ward Primary Insurance:1500 CINDY Diamond PRYORDOB: [facility] PRYORDOB: [facility] CAREPolicy Number: [id number] System STATE ROUTE Effective STATE ROUTE Repository [address] [place] [address] Date:2018-02-10 - [address] [place] [address] [id number] [place] [address]Eya: Name:CD:[id number] [place] [address]Lue: [address]DPRWIKO, [place] (HP) [address]KX: (800) (HP) 000-0000 (WP) 05/11/2018 CINDY Ward Primary CINDY Diamond PRYORDOB: Insurance:UNITED PRYORDOB: [facility] HEALTHCAREPolicy [id number] System STATE ROUTE Number: Effective STATE ROUTE Repository [address] [place] [address] Date:2018-05-11 - [address] [place] [address] [id number] [place] [address]Pqk: Name:CD:[id number] [address] [address]Hrn: [id number], [place] (HP) [address]PH: (202) (HP) 000-0000 (WP) 05/11/2018 CINDY Primary CINDY PRYORDOB: [place] PRYORDOB: Insurance:[place] [id number] [facility] HealthCare Of STATE [facility] Number: DARIUS CHANGFAYETTEVILLEHarrisonRIVERV[facility] [id number] [place] [id number]: , [place] Date:Plan Name:Health [id number]: (HP) (HP) 05/07/2018 CINDY C Primary CINDY Diamond PRYORDOB: Insurance:[place] PRYORDOB: [facility] [id number] [facility] STATE ROUTE Number: Effective [address] Date:2018-05-07 - [address] [place] [address] [id number] [place] [address]Mgp: Name:CD:[id number] [facility] [address]Bfc: [id number], [place] (HP) [address]MC: (702) (HP) 000-0000 (WP) 05/07/2018 CINDY WHITE PRYORDOB: [place] PRYORDOB: Insurance:[place] [id number] [facility] HealthCare Of [facility] Number: DARIUS CHANGFAYETTEVILLEHarrisonRIVERVIEW [facility] [id number] [place] [id number]: , [place] Date:Plan Name:Health [id number]: (HP) () 03/13/2018 CINDY C Primary CINDY Ward [facility] PRYORDOB: Insurance:[facility] PRYORDOB: [place] Number: [id number] [facility] [id number] [address] Date:7171-22-27Chzq [address] [place] [address], Repository , [place] [address]Nkl: Name:MANAGED CARE [place] [address]Zvj: (HP)Tel: [phone]) () [phone] (WP) 03/06/2018 CINDY Ward Primary CINDY Diamond PRYORDOB: Insurance:[place] PRYORDOB: [facility] HEALTHCAREPolic [id number] System STATE ROUTE Number: Effective STATE ROUTE Repository [address] [place] [address] Date:2018-03-06 - [address] [place] [address], [place] 9744-36-46Kwrj [place] [id number]: [id number]: Name:CD:[id number] [address] [place] [address] ID ()Tel: (000) (HP) [phone]: (WP) [id number] 03/06/2018 CINDY WHITE PRYORDOB: [place] PRYORDOB: Insurance:[place] [id number] [facility] STATE ROUTE Repository [facility] Number: [address] [place] [address] [id number] [place] [id number]: , [place] Date:Plan Name:Health [id number]: (HP) () 02/19/2018 CINDY Ward Primary CINDY Diamond PRYORDOB: Insurance:[place] PRYORDOB: [facility] [id number] System STATE ROUTE Number: Effective STATE ROUTE Repository [address] [place] [address] Date:2018-02-19 - [address] [place] [address] [place] [id number] [place] [id number]: [id number]: Name:CD:[id number] [address]NPAOHZD, [place] ()Tel: (000) (HP) [phone]: (WP) [phone] 02/19/2018 CINDY Bates CINDY PRYORDOB: [place] PRYORDOB: Insurance:[place] [id number] [facility] Number: [id number] [id number] [place] [id number]: , [place] Date:Plan Name:Health [id number]: (HP) () 02/10/2018 CINDY Ward Primary Insurance:[facility] CINDY Ward Mandaen PRYORDOB: [facility] PRYORDOB: [facility] CAREPolicy Number: [id number] [address] Date:2017-10-28 - [address] [place] [address] [id number] [place] [id number]: [id number]: Name::[id number] [address] ()Tel: (000) (HP) [phone]: (WP) [phone] 02/09/2018 CINDY Ward Primary CINDY Ward [facility] PRYORDOB: Insurance:[facility] PRYORDOB: [place] Number: [id number] [facility] [id number] Date:3664-77-33Mlgp [address] [place] [address], [facility] , [place] [address]Izt: Name:MANAGED [place]ARE [place] [address]Jax: (HP)Tel: ([phone]) (HP) [phone] (WP) 02/09/2018 CINDY C Primary CINDY Ward [facility] PRYORDOB: Insurance:[facility] PRYORDOB: [place] Number: [id number] [facility] [id number] Date:9675-39-79Bknh [address] [place] [address], [facility] , [place] [address]Vfj: Name:MANAGED [place] [address]Ohi: (HP)Tel: [phone] () [phone] (WP) 02/09/2018 CINDY Ward Primary CINDY Ward [facility] PRYORDOB: Insurance:[facility] PRYORDOB: [place] Number: [id number] [facility] [id number] Date:4812-63-30Llvf [address] [place] [address], [facility] , [place] [address]Kjc: Name:[place]NA[place]ED [place] [address]Yjh: (HP)Tel: ([phone]) (CH) [phone] (WP) 01/23/2018 CINDY Ward Primary CINDY Ward Mandaen PRYORDOB: Insurance:[place] PRYORDOB: [facility] [id number] System STATE ROUTE Number: Effective [address] Date:2018-01-[address] [id number] [place] [id number]: [id number]: Name::[id number] [facility] [address] [place] [address] ()Tel: [phone]) (HP) [phone]: (WP) [phone] 01/23/2018 CINDY WHITE PRYORDOB: [place] PRYORDOB: Insurance:[place] [id number] [facility] HealthCare STATE [facility]: [facility] [id number] [id number]: , [place] Date:Plan Name:Health [id number]: () () 01/01/2018 CINDY Ward Primary CINDY Ward [facility] PRYORDOB: Insurance:[facility] PRYORDOB: [place] Number: [id number] [facility] [id number] [address] Date:5455-83-43Djwm [address] [place] [address], Repository , [place] [address]Rvy: Name:MANA[place]ED [place]ARE [place] [address]Nug: (HP)Tel: [phone] (LB) [phone] (QP) 12/02/2017 CINDY Ward Primary CINDY Ward [facility] PRYORDOB: Insurance:[facility] PRYORDOB: [place] Number: [id number] [facility] [id number] [address] Date:6861-59-15Tpwc [address] [place] [address], Repository , [place] [address]Kww: Name:MANAGED [place]ARE [place] [id number]: (HP)Tel: [phone]) (ET) [phone] (WP) 11/13/2017 CINDY Ward Primary CINDY Ward [employer] PRYOR48 STATE Insurance:[facility] PRYORDOB: Community ROUTE CARE [id number] [place], [place] [id number] Number: Repository , [place] [address]Gss: [id number] Date:8422-35-55CR [address]OX () [place], [place] [address]EN: 11/13/2017 Secondary NOT GIVENUNK University Insurance:SELF PAY [facility] Number: Effective Repository Date:2017-11-13 11/13/2017 CINDY C Primary CINDY Ward [employer] PRYOR48 STATE Insurance:[facility] PRYORDOB: Community ROUTE CARE [id number] Number: Repository , [place] [address]Lyf: [id number] Date:3499-92-52HM [address] () [place], [place] [address]WA: 11/13/2017 Secondary NOT GIVENUNK Darvin Insurance:SELF PAY [facility] Number: Effective Repository Date:2017-11-13 10/28/2017 CINDY Ward Primary Insurance:[facility] CINDY Diamond PRYORDOB: [facility] PRYORDOB: [facility] CAREPolicy Number: [id number] System STATE ROUTE Effective STATE ROUTE Repository [address] [place] [address] Date:2017-07-29 - [address] [place] [address] [id number] [place] [id number]: [id number]: Name:CD:[id number] [address] [place] [address] ()Tel: (000) (HP) [address]JM: (WP) [phone] 10/21/2017 CINDY Ward Primary CINDY [place] PRYOR48 STATE Insurance:[facility] PRYORDOB: [facility] ROUTE CARE [id number] Number: Repository , [place] [address]Spe: [id number] Date:6138-86-63JK B[address] () [address] [place], [place] [address]WP: 10/21/2017 Secondary NOT GIVENUNK [place] Insurance:SELF PAY [facility] Number: Effective Repository Date:2017-10-21 10/20/2017 CINDY C Primary CINDY Diamond PRYORDOB: Insurance:[place] PRYORDOB: [facility]ALTHCAREPol[facility] [id number] System STATE ROUTE Number: Effective STATE ROUTE Repository [address] [place] [address] Date:2017-10-14 - [address] [place] [address] [id number] [place] [id number]: [id number]: Name:CD:[id number] [address] [place] [address], ()Tel: (000) (HP) [place] [address]YH: (WP) [phone] 10/20/2017 CINDY Primary CINDY PRYORDOB: University PRYORDOB: Insurance:[employer] [id number] [facility] STATE ROUTE Repository STATE [facility] Number: [facility], [address] [place] [id number] [place] [id number]: , [place] Date:Plan Name:Health [id number]: () (HP) 08/06/2017 CINDY Ward Primary CINDY Ward [employer] PRYOR48 SR Insurance:[facility] PRYORDOB: [place] [id number] [id number], [place] [address]Hhu: Number: Repository [id number] () Date:9441-51-84PK [address] [place] [address]HZ: 08/06/2017 Secondary NOT GIVENUNK University Insurance:SELF PAY [facility] Number: Effective Repository Date:2017-07-17 08/06/2017 CINDY Ward Primary CINDY Ward [employer] PRYOR48 SR Insurance:[facility] PRYORDOB: [place] [id number] [id number], [place] [address]Vyd: Number: Repository [id number] () Date:3729-84-16ZM [address] [place] [address]QL: 08/06/2017 Secondary NOT GIVENUNK Darvin Insurance:SELF PAY [facility] Number: Effective Repository Date:2017-08-06 07/29/2017 CINDY Ward Primary Insurance:[facility] CINDY Ward Mandaen PRYORDOB: [facility] PRYORDOB: [facility] CAREPolic Number: [id number] System STATE ROUTE Effective STATE ROUTE Repository [address] [place] [address] Date:2017-06-26 - [address] [place] [address] [id number] [place] [id number]: [id number]: Name:CD:[id number] [address]DXYOYXQ, [place] ()Tel: [phone]) (HP) [phone]: () [phone] 07/17/2017 CINDY Ward Primary CINDY [place] PRYOR48 Insurance:[facility] PRYORDOB: [place] [id number] [id number], [place] [address]Etp: Number: Repository [id number] () Date:4300-10-40MD [address] [place] [address]VP: 07/17/2017 Secondary NOT GIVENUNK [place] Insurance:SELF PAY [facility] Number: Effective Repository Date:2017-07-17 07/17/2017 CINDY Ward Primary CINDY [place] PRYOR48 Insurance:[facility] PRYORDOB: [facility] ROUTE [address] [id number] Number: Repository , [place] [address]Woj: [id number] Date:5423-66-72SN BOX () [address] [place], [place] [address]WP: 07/17/2017 Secondary NOT GIVENUNK Darvin Insurance:SELF PAY [facility] Number: Effective Repository Date:2017-07-17 06/26/2017 CINDY Ward Primary Insurance:[facility] CINDY Diamond PRYORDOB: [facility] PRYORDOB: [facility] Number: [id number] System STATE ROUTE Effective STATE ROUTE Repository [address] [place] [address] Date:2017-05-[address] [place] [address] [id number] [place] [id number]: [id number]: Name:CD:[id number] [address] [place] [address] ()Tel: (000) (HP) [phone]: (WP) [phone] 06/20/2017 CINDY Ward Primary CINDY Diamond PRYORDOB: Insurance:UNITED PRYORDOB: [facility] HEALTHCAREPolicy [id number] System STATE ROUTE Number: Effective STATE ROUTE Repository [address] [place] [address] Date:2017-06-03 - [address] [place] [address] [id number] [place] [id number]: [id number]: Name:CD:[id number] [address] [place] [address], (HP)Tel: (000) (HP) [place] [address]WB: (WP) [phone] 05/29/2017 CINDY Ward Primary Insurance:[address] [place] [address] Sylvia Mandaen PRYORDOB: [facility] PRYORDOB: [facility] CAREPolicy Number: [id number] System STATE ROUTE Effective STATE ROUTE Repository [address] [place] [address] Date:2017-05-20 - [address] [place] [address] [id number] [place] [id number]: [id number]: Name:CD:[id number] [address]CZBFMCM, [place] (HP)Tel: (000) (HP) [phone]: (WP) [phone]
--- OUTSIDE RECORDS SUMMARY | 2018-07-21 02:54 | XMS RPT_ITS | Summary of Care ---
:1960 Author Organization [facility] Address [address] [place] [address] Phone Care Team Providers Name Role Phone Maico Lainez MD Primary Care Provider Brady Regalado MD Referring 1 Kyaw Bateman MD Referring 2 Mandi Peoples MD Referring 3 Reason for Visit Reason Comments Other reminder Results Encounter Details Date Type Department Care Team Description 03/02/2018 Telephone [facility] Gill Rcihard RN Other (reminder); Center at [facility] [address] [place] [address] Allergies No Known Allergiesas of [...] As Active directed. At night 2-3 liter carveDILOL 6.25 MG Tab Take 1 tablet by 60 tablet 6 02/09/2018 Active tabletIndications: mouth 2 times Nonischemic daily. cardiomyopathy spironolactone Take 1 tablet by 30 tablet 6 02/09/2018 Active (ALDACTONE) 25 MG Tab mouth daily. tabletIndications: Nonischemic cardiomyopathy as of this encounter Active Problems Problem Noted Date PVC (premature ventricular contraction) 12/02/2017 Overview: Added automatically from request for surgery [id number] Nonischemic cardiomyopathy 12/02/2017 Overview: Added automatically from request for surgery [id number] Social History Tobacco Use Types Packs/Day Years Used Date Former Smoker Cigarettes 40 Quit: 01/10/2017 Smokeless Tobacco: Never Used Alcohol Use Drinks/Week oz/Week Comments No Sex Assigned at Date Recorded Not on file as of this encounter Plan of Treatment Upcoming Encounters Date Type Specialty Care Team Description 03/13/2018 Office Visit Cardiovascular Medicine Mandi Peoples MD [address] [place] [phone] 05/20/2018 Appointment Cardiovascular Medicine 08/10/2018 Clinical Support Cardiovascular Medicine Encounter 08/19/2018 [...] of this encounter Implants Implanted Type 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 Device Identifier Expiration Model / Date Serial / Lot Generator Pulse Sicd [facility] Mri - [id number] ICD N/A: GUIDANT/[place]ST[place] [id number] 12/10/2019 A219 / Implanted: Qty: 1 on 01/01/2018 by Kyaw Bateman MD Chest [employer] CRM [id number] / [id number] Electrode [employer] S-Icd - [id number] Lead N/A: GUIDANT/BOSTON [id number] 10/10/2019 3501 / Implanted: Qty: 1 on 01/01/2018 by Kyaw Bateman MD [employer] [id number] / as of this encounter Procedures Procedure Name Priority Date/Time Associated Diagnosis Comments CHEM 7 PANEL, Routine 03/06/2018 10:32 AM Results for this MANUAL ENTER EST procedure are in the results section. in this encounter Results CHEM 7 PANEL, MANUAL ENTER (03/06/2018 10:32 AM) Blood Urea Nitrogen (BUN), MANUAL ENTER 24 SODIUM (NA), MANUAL ENTER 137 POTASSIUM (K+), MANUAL ENTER 4.2 Chloride (CL), MANUAL ENTER 102 mmol/L Carbon Diox(CO2), MANUAL ENTER 28.0 GLUCOSE, MANUAL ENTER 267 CREATININE, SERUM, MANUAL ENTER 1.0 mg/dL BUN/CREA RATIO, MANUAL ENTER 24.0 MAGNESIUM (MG), MANUAL ENTER CALCIUM (CA), MANUAL ENTER 9.9 Phosphate (PO4), Manual Enter Specimen Blood in this encounter
== END ==
PROVIDERS: Family Provider Family Medicine; PCP Family Medicine; Referring Provider Physician Assistant Medical; Visit Provider Physician Assistant Medical
DX: I48.91 Unspecified atrial fibrillation (principal); I43 Cardiomyopathy in diseases classified elsewhere; Z95.810 Presence of automatic (implantable) cardiac defibrillator
CPT/HCPCS: 36415; 80048

== ENCOUNTER 2018-06-15 10:40 | Day surgery (SDC) | payer OTHER, SELFPAY ==
[2018-05-18 13:26] VITALS: BMI 40.0
[2018-06-12 12:20] VITALS: BMI 40.0
--- NOTE | 2018-06-15 12:26 | PCM.PN.BLA ---
Progress Note Operative report. 57-year-old man with a history of cardiomyopathy and atrial fibrillation. The patient was brought to the cardiac catheterization lab in the postabsorptive nonsedated state. The patient had been on anticoagulation for minimum of 3 weeks. Informed consent was obtained. The patient was seen by Dr. Rubin of the critical care division. He was administered 16 mg of intravenous etomidate. 300 J of synchronized DC cardioversion energy were applied with prompt reversal to sinus rhythm. Patient tolerated the procedure well. Postoperative EKG confirmed patient in sinus rhythm. Conclusion: Successful DC cardioversion from atrial fibrillation. Continue anticoagulation Continue follow-up in the heart group offices.
--- NOTE | 2018-06-15 15:25 | PCM.OPRPT ---
Problem List (1) Atrial fibrillation Status: Chronic Qualifiers: (2) Cardiomyopathy in other diseases classified elsewhere Status: Chronic (3) Chronic systolic (congestive) heart failure Status: Chronic (4) Dilated cardiomyopathy Status: Chronic (5) Hyperlipidemia Status: Chronic Qualifiers: (6) Hypertension Status: Chronic Qualifiers: (7) Nonrheumatic mitral valve insufficiency Status: Chronic Comment: moderate (2+) per echo 04/14/17 (8) Nonrheumatic tricuspid (valve) insufficiency Status: Chronic Comment: Moderate (2+) per echo 04/14/17 (9) Pulmonary hypertension Status: Chronic Comment: Pulmonary pressure 55 mmhg per echo 04/14/2017 (10) Presence of implantable cardioverter-defibrillator (ICD) Status: Resolved Comment: [employer] [facility] MRIS-ICD @[facility] Dr Bateman 01/01/18 (11) Tobacco abuse Status: Resolved Report of Operation Date of Procedure: 06/15/18 Pre-Operative Diagnosis: A. fib Post-Operative Diagnosis: A. fib Surgery/Procedure Performed:: Conscious sedation Description of Surgical Findings:: CONSCIOUS SEDATION REPORT BRIEF HISTORY OF PRESENT ILLNESS: The patient is a 57-year-old male who presented to [facility] for an elective outpatient cardioversion due to underlying atrial fibrillation. The patient reports no PO intake since midnight. The patient does not have a history of obstructive sleep apnea. The patient reports a history of smoking and COPD, but does not use inhalers at baseline. The patient denies any recent constitutional symptoms such as fevers, chills, nausea or vomiting. The patient denies previous anesthetic complications. Patient is on Eliquis for anticoagulation and last known EF 15%. PHYSICAL EXAMINATION: VITAL SIGNS: Reviewed and were acceptable. GENERAL: The patient is a male, in no apparent distress, speaking in full sentences. HEENT: Normocephalic, atraumatic. Mucous membranes are moist and pink. Good mouth opening noted. Trachea is midline. Good neck mobility. MP IV CHEST: S1, S2 irregularly irregular. No murmurs, rubs or gallops were noted. LUNGS: Clear to auscultation bilaterally without appreciable wheezes, rales or rhonchi. ABDOMEN: Soft, nontender, nondistended. Positive bowel sounds. EXTREMITIES: There is no clubbing, cyanosis or edema. ASA Class: II DESCRIPTION OF PROCEDURE: After confirmation of informed consent, the patient's anesthesia plan was reviewed in detail. Etomidate was chosen. Risks and benefits were reviewed and the patient agreed to proceed. At 11:54 AM, the patient was given 4 mg of etomidate. The patient required a total of 16 mg of etomidate throughout the procedure to achieve appropriate sedation. The patient achieved an appropriate level of sedation and received 1 attempt s synchronized cardioversion, at [address] Regalado at the bedside. This was successful in achieving normal sinus rhythm. The patient was monitored until 12:07 PM, at which time the patient reached their baseline mental status and function. The patient tolerated the procedure well. COMPLICATIONS: None ESTIMATED BLOOD LOSS: None RECOMMENDATIONS: Okay to recover in usual fashion. Code Visit 9xxxx: Other Procedure See Report - [id number] - 13 minutes
--- NOTE | 2018-06-15 15:29 | OP.PCM_ITS ---
Problem List (1) Atrial fibrillation Status: Chronic Qualifiers: (2) Cardiomyopathy in other diseases classified elsewhere Status: Chronic (3) Chronic systolic (congestive) heart failure Status: Chronic (4) Dilated cardiomyopathy Status: Chronic (5) Hyperlipidemia Status: Chronic Qualifiers: (6) Hypertension Status: Chronic Qualifiers: (7) Nonrheumatic mitral valve insufficiency Status: Chronic Comment: moderate (2+) per echo 04/14/17 (8) Nonrheumatic tricuspid (valve) insufficiency Status: Chronic Comment: Moderate (2+) per echo 04/14/17 (9) Pulmonary hypertension Status: Chronic Comment: Pulmonary pressure 55 mmhg per echo 04/14/2017 (10) Presence of implantable cardioverter-defibrillator (ICD) Status: Resolved Comment: [employer] [facility] MRIS-ICD @[facility] Dr Bateman 01/01/18 (11) Tobacco abuse Status: Resolved Report of Operation Date of Procedure: 06/15/18 Pre-Operative Diagnosis: A. fib Post-Operative Diagnosis: A. fib Surgery/Procedure Performed:: Conscious sedation Description of Surgical Findings:: CONSCIOUS SEDATION REPORT BRIEF HISTORY OF PRESENT ILLNESS: The patient is a 57-year-old male who presented to [facility] for an elective outpatient cardioversion due to underlying atrial fibrillation. The patient reports no PO intake since midnight. The patient does not have a history of obstructive sleep apnea. The patient reports a history of smoking and COPD, but does not use inhalers at baseline. The patient denies any recent constitutional symptoms such as fevers, chills, nausea or vomiting. The patient denies previous anesthetic complications. Patient is on Eliquis for anticoagulation and last known EF 15%. PHYSICAL EXAMINATION: VITAL SIGNS: Reviewed and were acceptable. GENERAL: The patient is a male, in no apparent distress, speaking in full sentences. HEENT: Normocephalic, atraumatic. Mucous membranes are moist and pink. Good mouth opening noted. Trachea is midline. Good neck mobility. MP IV CHEST: S1, S2 irregularly irregular. No murmurs, rubs or gallops were noted. LUNGS: Clear to auscultation bilaterally without appreciable wheezes, rales or rhonchi. ABDOMEN: Soft, nontender, nondistended. Positive bowel sounds. EXTREMITIES: There is no clubbing, cyanosis or edema. ASA Class: II DESCRIPTION OF PROCEDURE: After confirmation of informed consent, the patient's anesthesia plan was reviewed in detail. Etomidate was chosen. Risks and benefits were reviewed and the patient agreed to proceed. At 11:54 AM, the patient was given 4 mg of etomidate. The patient required a total of 16 mg of etomidate throughout the pr ocedure to achieve appropriate sedation. The patient achieved an appropriate level of sedation and received 1 attempt s synchronized cardioversion, at [address] Regalado at the bedside. This was successful in achieving normal sinus rhythm. The patient was monitored until 12:07 PM, at which time the patient reached their baseline mental status and function. The patient tolerated the procedure well. COMPLICATIONS: None ESTIMATED BLOOD LOSS: None RECOMMENDATIONS: Okay to recover in usual fashion. Code Visit 9xxxx: Other Procedure See Report - [id number] - 13 minutes
== END 2018-06-15 13:05 | disposition home or self-care (01) ==
LOC: CLSP 10:41
PROVIDERS: Family Provider Family Medicine; PCP Family Medicine; Referring Provider Internal Medicine Cardiovascular Disease; Visit Provider Internal Medicine Cardiovascular Disease
DX: I48.1 Persistent atrial fibrillation (principal); I42.0 Dilated cardiomyopathy; I11.0 Hypertensive heart disease with heart failure; I50.22 Chronic systolic (congestive) heart failure; I27.20 Pulmonary hypertension, unspecified; I34.0 Nonrheumatic mitral (valve) insufficiency; I36.1 Nonrheumatic tricuspid (valve) insufficiency; J44.9 Chronic obstructive pulmonary disease, unspecified; E78.5 Hyperlipidemia, unspecified; Z79.01 Long term (current) use of anticoagulants; Z79.84 Long term (current) use of oral hypoglycemic drugs; Z79.82 Long term (current) use of aspirin; Z79.899 Other long term (current) drug therapy; Z87.891 Personal history of nicotine dependence; Z95.810 Presence of automatic (implantable) cardiac defibrillator
CPT/HCPCS: 92960; 93005; J7040

== ENCOUNTER → 2019-09-16 13:56 | Outpatient (CLI) | payer OTHER, SELFPAY ==
[2019-04-27 08:33] VITALS: BMI 38.7
--- NOTE | 2019-09-16 13:59 | RAD_ITS ---
STUDY: X-RAY CHEST REASON FOR EXAM: Male, 59 years old. Pre-op for hip surgery TECHNIQUE: PA and lateral views of the chest. COMPARISON: 04/19/2017 FINDINGS: Monitoring device noted over the left chest wall The lungs are clear and expanded. There is no demonstrated pleural abnormality. Normal size heart. Normal mediastinum and alyssa. Normal visualized pulmonary arteries. Normal visualized aortic arch and descending thoracic aorta. There are diffuse degenerative changes of the visualized thoracic spine. Normal visualized ribs, clavicles, and shoulders. There is no demonstrated abnormality of the visualized soft tissue structures of the upper abdomen. RAD/Chest PA and Lateral IMPRESSION: No acute pulmonary process Electronically Signed: Julio Muñiz MD at 16:19 EDT , Service support ,
[2019-09-16 15:27] LABS: Anion Gap 6 (5-15); BUN 17 mg/dL (7-18); BUN/Creat Ratio 16.3 RATIO (10-20); Calcium,Total 9.3 mg/dL (8.5-10.1); Chloride 106 mmol/L (98-107); Creatinine, Serum 1.04 mg/dL (0.70-1.30); EST Glomerular Filtration Rate 78 mL/min (>60); Est Glom Filt Rate - Afr Amer 95 mL/min (>60); Glucose 176 mg/dL (74-106); Potassium 3.6 mmol/L (3.5-5.1); Sodium Level 140 mmol/L (136-145)
== END ==
PROVIDERS: PCP Family Medicine; Referring Provider Nurse Practitioner Family; Visit Provider Nurse Practitioner Family
DX: I42.8 Other cardiomyopathies (principal); I48.0 Paroxysmal atrial fibrillation
CPT/HCPCS: 36415; 71046; 80048; 83880

== ENCOUNTER 2019-10-01 10:27 | Day surgery (SDC) | payer OTHER, SELFPAY ==
[2019-04-27 08:33] VITALS: BMI 38.7
--- NOTE | 2019-09-27 10:16 | HP.PCM_ITS ---
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 He has a history of nonischemic cardiomyopathy. He underwent an ICD placement down at [facility]. He had his ICD placed in December of 2017. In April 2018 he was noted to be in atrial fibrillation. He did undergo a successful cardioversion in May 2018. He did have an episode of ventricular tachyarrhythmia in June 2018. Patient contacted office on 09/16/2019 with increase in shortness of breath and dizziness over 2 weeks. He underwent EKG that showed atrial fibrillation. He was started on amiodarone 200 mg p.o. twice daily for 2 weeks with plan to undergo cardioversion after 2 weeks. The hope was that post cardioversion he could reduce his amiodarone to 200 mg p.o. daily Due to reduced ejection fraction, he underwent a BNP in addition to his cardioversion testing of chest x-ray and BMP. His chest x-ray was negative for pulmonary congestion. His BNP was elevated at 335. His Lasix was temporarily adjusted to assist. He presents today for outpatient cardioversion. He continues with dizziness, palpitations, fatigue and shortness of breath. He denies chest, arm, jaw, or neck discomfort. His exercise tolerance is stable. He denies symptoms of lightheadedness, near syncope, or syncopal episodes. He denies edema or claudication issues. He denies orthopnea, PND, fever, chills, blood in urine, blood in stool, or myalgia,. Intake Vital Signs: See EMR Intake Visit Reasons: DCCV Allergies No Known Allergies Allergy (Verified 04/27/19 08:34) Medications See EMR [facility] Medical History Non-ischemic cardiomyopathy (Chronic) Paroxysmal atrial fibrillation (Chronic) Chronic combined systolic and diastolic CHF (congestive heart failure) (Chronic) Sustained ventricular tachycardia (Chronic 06/29/18) Secondary pulmonary arterial hypertension (Resolved) Essential (primary) hypertension (Chronic) Hyperlipidemia (Chronic) Obesity (Chronic) Persistent atrial fibrillation (Resolved) Chronic systolic (congestive) heart failure (Inactive) Nonrheumatic mitral valve insufficiency (Inactive) Nonrheumatic tricuspid (valve) insufficiency (Inactive) Snoring (Inactive) Surgical History Presence of implantable cardioverter-defibrillator (ICD) (Chronic 01/01/18) History of cardioversion (Resolved 06/15/18) History of left heart catheterization (Resolved 10/13/12) History of oral surgery (Resolved) Family History Mother CAD (coronary artery disease) Onset under age 65 Father Cancer lung Social History (Updated 04/27/19 @ 11:47 by Brady Regalado MD) Smoking Status: Former smoker quit date: 04/28/16 pack-years: 80 how long ago did patient quit smokin years ago alcohol intake: never substance use type: does not use caffeine: Yes Type: carbonated beverages Number of servings: 2 ROS Const Const: Positive for fatigue. Negative for weakness, headache(s), frequent falls, difficulty sleeping or excessive sweating Eyes Eyes: Negative for loss of peripheral vision, transient loss of vision, blurry vision, double vision or tunnel vision ENT ENT: Positive for dizziness. Negative for headache(s), Nosebleed/epistaxis or balance problems Cardio Chest Pain: No Palpitations: Yes Edema: None Muscle aches with walking: None Resp Respiratory: Positive for SOB with activity; negative for SOB at rest, SOB orthopnea\SOB lying down, Cough or paroxysmal nocturnal dyspnea GI GI: Negative nausea, vomiting, heartburn or black,tarry stools : Negative for hematuria Musc Musc: Negative for muscle aches/ myalgia, muscle weakness, joint pain or balance problems Skin Skin: Negative non-healing lesions, rash or unusual bruising Neuro Neuro: Negative for dizziness, lightheadedness, near syncope, syncope, orthostatic symptoms, frequent falls, headache(s), weakness, blurry vision, double vision or lack of coordination Efraín Hematologic/Lymphatic: Negative for easy bleeding or easy bruising Endo Endo: Negative for fatigue, excessive sweating or increased thirst/drinking Psych Psych: Negative for anxiety or depression Allergy Allergy/Immunology: Negative for hives, Negative for rash Cardiology Exam Const Appearance: cooperative, healthy appearing, no acute distress, well developed and well groomed Nutritional Appearance: average body habitus and well nourished Orientation: alert, awake and oriented x3 Head Head: normal to inspection, normocephalic and atraumatic Ears: hearing grossly normal bilaterally and external ears normal Nose: external nose normal, nares normal, nasal mucous membranes and turbinates normal, septum normal, no nasal discharge Face and Sinus: face symmetric Mouth: oral mucosae normal, tongue normal, oropharynx normal and moist mucous membranes Teeth and gingiva: dentition normal Throat: posterior oropharynx normal, tonsils normal and uvula midline Eyes General: appearance normal, both eyes and all related structures Eyelids: eyelids normal Conjunctivae: conjunctivae normal Pupils: PERRL, normal by confrontation and accommodation normal EOM: EOM intact bilaterally Neck Neck: normal visual inspection, trachea midline and no JVD JVD: +5 Carotids: normal carotid upstroke and bounding pulses Chest Chest inspection: normal inspection of the chest, symmetric chest movement and normal respiratory effort Auscultation: Bilateral: Clear to Auscultation Cardio Palpation: normal PMI Rate: regular rate Rhythm: irregular rhythm Heart sounds: S1 normal, S2 normal and normal; negative rub, gallop or murmur GI GI: normal to inspection, soft, no hepatosplenomegaly and bowel sounds present Neuro General: alert, awake, oriented x3, gait normal, moves all extremities and no focal sensory deficit Skin Skin: no rashes or lesions noted Extremities Pulses: Normal: Right Femoral Pulse, Left Femoral Pulse, Right Dorsalis Pedis Pulse, Left Dorsalis Pedis Pulse, Right Posterior Tibial Pulse, Left Posterior Tibial Pulse, Right Radial Pulse, Left Radial Pulse Lower Extremity Edema: None: Bilateral Musculoskel Musculoskeletal: No joint tenderness Psych Psychological: normal affect Assessment & Plan 1. Non-ischemic cardiomyopathy I42.8 Plan He does have a history of nonischemic cardiomyopathy. He has been tolerating his medications quite well. You fo remember he had previously been on Entresto which was discontinued. His most recent echocardiogram from 08/06/2017 showed an ejection fraction of 15% and stage III diastolic dysfunction. He is also on dapagliflozin. He is tolerating the above quite well. 2. Presence of implantable cardioverter-defibrillator (ICD) Z95.810 [employer] [facility] MRIS-ICD @[facility] Dr Bateman 01/01/18 Plan He does have an implantable defibrillator and will continue to follow-up in our defibrillator clinic. 3. Paroxysmal atrial fibrillation I48.0 Plan He will proceed with outpatient cardioversion. He will continue with anticoagulation and Amiodarone therapy. 4. Essential (primary) hypertension I10 Plan His blood pressure appears to be under good control on the current medical therapy no other changes will be made with respect to the above. 5. Pure hypercholesterolemia E78.5 Plan He will continue with lipid-lowering therapy as per guidelines. This note was generated using a voice recognition system and there may be incorrect words, spelling or punctuation that were not noted when reviewing the office note prior to saving.
[2019-09-30 11:21] VITALS: BMI 38.7
--- NOTE | 2019-10-01 13:05 | CARDIOVERS ---
Cardioversion Cardioversion: Procedure: DC Cardioversion Indication: Symptomatic atrial fibrillation [] Procedure Note: The patient was brought to the cardiac catheterization lab in the postabsorptive nonsedated state. The patient was seen by Marco Drake of the critical care division [] . Patient was noted to have reduced global ejection fraction of [15%] and has been on therapeutic anticoagulation as well as [Amiodarone]. Anterior posterior pads were applied. [300 J] of synchronized DC cardioversion energy were applied after the patient was administered [8mg] of [intravenous Etomidate]. The patient reverted to [sinus rhythm Plan: Continue [Amiodarone] Continue anticoagulation Follow-up in my office in a week
--- NOTE | 2019-10-01 13:20 | PRO.PCM_ITS ---
Procedure Report Date of Procedure: 10/01/19 CONSCIOUS SEDATION REPORT DATE OF SERVICE: October 01, 2019 BRIEF HISTORY OF PRESENT ILLNESS: The patient is a 59-year-old male who presented to [facility] for an elective outpatient cardioversion due to underlying atrial fibrillation. The patient did previously undergo a cardioversion in 2019 during which time he was documented to require 16 mg of etomidate. He does have a known history of obstructive sleep apnea. The patient is a former smoker, but denies a history of asthma or COPD. His last surface echocardiogram revealed an ejection fraction of approximately 15%. He is currently systemically anticoagulated on Eliquis. PHYSICAL EXAMINATION: VITAL SIGNS: Reviewed and were acceptable. GENERAL: The patient is an obese male, in no apparent distress, speaking in full sentences. HEENT: Normocephalic, atraumatic. Mucous membranes are moist and pink. Good mo uth opening noted. Trachea is midline. MPIII CHEST: S1, S2 irregularly irregular. No murmurs, rubs or gallops were noted. LUNGS: Clear to auscultation bilaterally without appreciable wheezes, rales or rhonchi. ABDOMEN: Soft, nontender, nondistended. Positive bowel sounds. EXTREMITIES: There is no clubbing, cyanosis or edema. ASA Class: II DESCRIPTION OF PROCEDURE: After confirmation of informed consent, the patient's anesthesia plan was reviewed in detail. Etomidate was chosen. Risks and benefits were reviewed and the patient agreed to proceed. At 1227, the patient was given 8 mg of etomidate. The patient achieved an appropriate level of sedation and was given a 300 joule synchronized cardioversion by Dr. Regalado at the bedside. This was successful in achieving normal sinus rhythm. The patient was monitored until 1238, at which time he reached his baseline mental status and function. The patient tolerated the procedure well. COMPLICATIONS: None ESTIMATED BLOOD LOSS: None RECOMMENDATIONS: Okay to recover in usual fashion. 9xxxx: Other Procedure See Report - [id number]
== END 2019-10-01 13:40 | disposition home or self-care (01) ==
LOC: CLSP 10:29
PROVIDERS: PCP Family Medicine; Referring Provider Internal Medicine Cardiovascular Disease; Visit Provider Internal Medicine Cardiovascular Disease
DX: I48.0 Paroxysmal atrial fibrillation (principal); I42.8 Other cardiomyopathies; I11.0 Hypertensive heart disease with heart failure; I50.42 Chronic combined systolic (congestive) and diastolic (congestive) heart failure; E78.5 Hyperlipidemia, unspecified; E66.9 Obesity, unspecified; Z95.810 Presence of automatic (implantable) cardiac defibrillator; Z79.01 Long term (current) use of anticoagulants; Z79.899 Other long term (current) drug therapy; Z87.891 Personal history of nicotine dependence
CPT/HCPCS: 92960; 93005; J7040

== ENCOUNTER 2019-10-02 02:52 | Emergency (ER) | payer OTHER, SELFPAY ==
[2019-09-30 11:21] VITALS: BMI 38.7
[2019-10-02 02:53] VITALS: BP 140/103; PULSE 97; RESP 20; TEMP 36.7; O2SAT 96; BMI 39.2
--- NOTE | 2019-10-02 03:09 | RAD_ITS ---
STUDY: X-RAY CHEST REASON FOR EXAM: Male, 59 years old. PT STATES THAT HE WAS CARDIOVERTED YESTERDAY AND THIS MORNING C/O CHEST PRESSURE AND SOB TECHNIQUE: AP portable COMPARISON: 09/16/2019. FINDINGS: The lungs are clear and expanded. No focal lung consolidative changes.There is no demonstrated pleural abnormality. Normal size heart. Normal mediastinum and alyssa. Normal visualized pulmonary arteries. Normal visualized aortic arch and descending thoracic aorta. Normal visualized thoracic spine. Normal visualized ribs, clavicles, and shoulders. There is no demonstrated abnormality of the visualized soft tissue structures of the upper abdomen. RAD/Chest 1 View (Portable) IMPRESSION: Negative x-ray examination of the chest. No interval change. Electronically Signed: Maico Saunders, at 3:43 EDT Tel , Service support ,
--- NOTE | 2019-10-02 03:10 | EKG12_ITS ---
Test Reason : CP Blood Pressure : / mmHG Vent. Rate : 100 BPM Atrial Rate : 100 BPM P-R Int : 214 ms QRS Dur : 096 ms QT Int : 364 ms P-R-T Axes : 072 105 -10 degrees QTc Int : 469 ms Sinus rhythm with 1st degree A-V block Low voltage QRS Anterolateral infarct , age undetermined Abnormal ECG Confirmed by EMILY VICENTE, ROM ([id number]), editor news HAY HORTON ([id number]) on 10/04/2019 1:32:28 PM Referred By: MIYA Confirmed By:ROM DIAZ MD
--- NOTE | 2019-10-02 03:13 | ED.VIS.CHEST ---
History of Present Illness Chief Complaint: Chest Pain Informant: Patient Onset: Hours - 2-3 Activity at onset: Rest Timing: Continuous Quality: Tightness Location: Substernal Current Severity: Mild Maximum Severity: Mild Worsened By: Exertion. 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 Negative for: Nausea, Vomiting, Diaphoresis, Fever, Lightheadedness, Palpitations Narrative: Patient presenting feeling very short of breath. Chest tightness is mild, breathing is the main issue. He denies any palpitations, but these of the symptoms he has had with A. fib in the past. Less than 24 hours ago, he was cardioverted for this very reason. He has been anticoagulated and maintained on that. He and state the symptoms are worse but similar. When he was cardioverted yesterday, he did feel better just after the cardioversion compared to prior, he cannot feel if he is having an irregular heartbeat or not. Denies any syncope or presyncope. No fevers or chills. They state that his Lasix dose was doubled, but it does not seem to be making him urinate very much. - Past Medical History (1) Non-ischemic cardiomyopathy Status: Chronic (2) Presence of implantable cardioverter-defibrillator (ICD) Status: Chronic Comment: [facility] MRIS-ICD @[facility] Dr Bateman 01/01/18 (3) Paroxysmal atrial fibrillation Status: Chronic (4) Chronic combined systolic and diastolic CHF (congestive heart failure) Status: Chronic (5) Sustained ventricular tachycardia Status: Resolved (6) Secondary pulmonary arterial hypertension Status: Resolved (7) Essential (primary) hypertension Status: Chronic (8) Hyperlipidemia Status: Chronic Past Medical History - Allergies and Home Meds Allergies/Adverse Reactions: Allergies No Known Allergies Allergy (Verified 10/02/19 02:58) Primary Care Physician: Dimitry Lainez MD [Primary Care Provider] - Surgical History: - - AICD Lives: Spouse/ Significant Other Smoking Status: Former smoker - Family History Sibling Family History: Family History (Last Reviewed 04/27/19 @ 11:[address] Brady Regalado MD) Mother CAD (coronary artery disease) Father Cancer Family History: Reports: Heart Disease - Brother had CABG. Sister recently of congestive heart failure at the age of 58. Paternal Family History: Family History (Last Reviewed 04/27/19 @ 11:[address] Brady Regalado MD) Mother CAD (coronary artery disease) Father Cancer Family History: Reports: Cancer, Heart Disease Review of Systems General: Reports: Malaise. Denies: Chills, Fever, Sweats Eyes: Denies: Visual changes - bilaterally, Diplopia ENT: Denies: Rhinorrhea, Sore throat Cardiovascular: Reports: Chest pain. Denies: Palpitations, Heart racing Respiratory: Reports: Dyspnea, Cough, Dyspnea on exertion, Orthopnea. Denies: Sputum Gastrointestinal: Denies: Abdominal pain, Nausea, Vomiting, Diarrhea, Melena, Hematochezia Genitourinary: Denies: Dysuria, Hematuria, Frequency Musculoskeletal: Denies: Neck pain, Back pain, Swelling, Extremity Pain Skin: Denies: Rash, Wounds Neurological: Denies: Headache, Weakness, Numbness Physical Exam Vital Signs/Narrative: Vital Signs Temp Pulse Resp BP Pulse Ox 10/02/19 02:53 98.0 F 97 20 H 140/103 H 96 Inital Vital Signs reviewed: Yes General: Well nourished, Well developed, Obese, No Acute Distress - but uncomfortable Head: Normocephalic, Atraumatic Eyes: Perrl, EOMI ENT: Moist mucous membranes, No rhinorrhea Neck: Supple, Nontender Cardiovascular: Regular rate, Regular rhythm, No murmurs, Tachycardia - mild Respiratory: No distress, CTA bilaterally, Chest nontender Abdomen: Soft, Nontender, Nondistended, Normal bowel sounds Back: Nontender, Normal Inspection Extremities: Nontender, No edema. Negative for: Calf Tenderness Skin: Normal color, No rash, No Trauma Neurological: Alert, Oriented x3, Cranial nerves II-XII grossly intact, Normal Strength, Normal Sensation Psychological: Normal affect, Normal Mood Diagnostic/Tx/Re-eval Impressions Chest X-Ray 10/02/19 03:09 IMPRESSION: Negative x-ray examination of the chest. No interval change. Electronically Signed: Maico Saunders, at 3:43 EDT Tel , Service support , 10/02/19 03:09 Chest 1 View (Portable) [RAD] Stat Laboratory Results 10/02/19 10/02/19 10/02/19 03:15 03:15 03:15 WBC 14.6 H RBC 4.39 L Hgb 14.7 Hct 43.0 MCV 97.9 H MCH 33.5 H MCHC 34.2 RDW Std Deviation 46.8 H RDW Coeff of Kaylee 13.2 Plt Count 289 MPV 11.1 Immature Gran % (Auto) 0.300 Neut % (Auto) 81.6 H Lymph % (Auto) 10.2 L [place] % (Auto) 6.9 Eos % (Auto) 0.5 Baso % (Auto) 0.5 Absolute Neuts (auto) 12.0 H Absolute Lymphs (auto) 1.49 Nucleated RBC % 0 Sodium 136 Potassium 4.0 Chloride 101 Carbon Dioxide 25.0 Anion Gap 10 BUN 17 Creatinine 1.24 Estim Creat Clear Calc 72.14 Est GFR (MDRD) Af Amer 77 Est GFR (MDRD) Non-Af 64 BUN/Creatinine Ratio 13.7 Glucose 189 H Calcium 8.8 Troponin I 0.043 B-Natriuretic Peptide 562.4 H - Rhythm Strip Rhythm Strip: Sinus Rhythm Rate: 97 Ectopy: None - EKG Initial EKG Interpretation: Sinus Rhythm, No Acute Injury Pattern, AV Block - 1st deg, - - right axis Prior: Unchanged Treatment: NTG SL, - - Lasix 40 IV Repeat Eval: Pain Free TEODORO Risk: No Positive TEODORO Elements Score: 0 - Medical Decision Making Patient was given a sublingual nitroglycerin and 40 mg IV Lasix. On reevaluation after urinating quite a bit, he is doing much better. I walked him down the hallway, he felt much better, his pulse ox stayed at or above 95% on room air. He has no more chest discomfort and he is comfortable going home. 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 Patient is comfortable with that plan and we discussed reasons to return. ED Disposition - Plan for ED Patient: Disposition: Home or Assisted Living Diagnosis: Chest pain, unspecified, Acute exacerbation of CHF (congestive heart failure) Instructions: ED CHF General Referrals: Dimitry Lainez MD [Primary Care Provider] - Brady Regalado MD [STAFF PHYSICIAN] - (after the weekend -- call for appt on friday.) Additional Instructions: For now, keep your medications the same including Lasix 80 mg twice daily.
[2019-10-02 03:25] LABS: Absolute Lymphocyte Count 1.49 X10^3/uL (0.83-4.51); Basophil# 0.07 X10^3/uL; Basophil% 0.5 % (0-1); Eosinophil# 0.07 X10^3/uL; Eosinophils% 0.5 % (0-5); Hemoglobin 14.7 g/dL (13.0-16.5); Lymphocyte # 1.49 X10^3/ul (4.0); Lymphocyte % 10.2 % (19-41); Mean Corp Hgb Conc 34.2 g/dL (32-36); Mean Corpuscular Hgb 33.5 pg (27.0-32.0); Mean Corpuscular Volume 97.9 fL (80-94); Mean Platelet Vol. 11.1 fl (6.2-12.0); Monocyte# 1.01 X10^3/uL; Monocyte% 6.9 % (0-10); NRBC Flagged by Analyzer 0 % (0-5); Neutrophil # 11.95 X10^3/uL (2.7-7.7); Neutrophil % 81.6 % (47-70); Platelet Count 289 K/mm3 (150-450); RBC Distribution Width CV 13.2 % (11.6-14.6); RBC Distribution Width SD 46.8 fl (35.1-43.9); Red Blood Count 4.39 M/mm3 (4.6-6.2); White Blood Count 14.6 K/mm3 (4.4-11.0)
[2019-10-02] MEDS: Furosemide 40 MG/4 ML Vial IV (03:33)
[2019-10-02 03:35] VITALS: BP 100/64; PULSE 88
[2019-10-02] MEDS: Nitroglycerin SL (ED/IMG/CATH) 0.4 MG TABLET SUBLINGUAL (03:35)
[2019-10-02 03:41] VITALS: BP 104/66; PULSE 87; RESP 21; O2SAT 92
[2019-10-02 03:46] VITALS: BP 103/79; PULSE 83; RESP 19; O2SAT 94
[2019-10-02 03:53] LABS: Anion Gap 10 (5-15); BUN 17 mg/dL (7-18); BUN/Creat Ratio 13.7 RATIO (10-20); Calcium,Total 8.8 mg/dL (8.5-10.1); Chloride 101 mmol/L (98-107); Creatinine, Serum 1.24 mg/dL (0.70-1.30); EST Glomerular Filtration Rate 64 mL/min (>60); Est Glom Filt Rate - Afr Amer 77 mL/min (>60); Estimated Creatinine Clearance 72.14 ml/min; Glucose 189 mg/dL (74-106); Sodium Level 136 mmol/L (136-145)
[2019-10-02 03:56] LABS: BNP,B-Type NATRIURETIC PEPTIDE 562.4 pg/mL (0-100)
[2019-10-02 04:00] VITALS: BP 114/60; PULSE 90; RESP 21; O2SAT 95
--- NOTE | 2019-10-02 04:30 | ED.RN ---
PT DIURESED 500 CC CLEAR YELLOW URINE.
[2019-10-02 04:41] VITALS: PULSE 83; RESP 18; O2SAT 95
== END 2019-10-02 04:42 | disposition home or self-care (01) ==
PROVIDERS: Emergency Provider Emergency Medicine; PCP Family Medicine
DX: R07.9 Chest pain, unspecified (principal); I50.9 Heart failure, unspecified; E66.9 Obesity, unspecified; I11.0 Hypertensive heart disease with heart failure; I48.0 Paroxysmal atrial fibrillation; Z79.01 Long term (current) use of anticoagulants; Z87.891 Personal history of nicotine dependence
CPT/HCPCS: 71045; 80048; 83880; 84484; 85025; 93005; 96374; 99285; A4216; J1940

== ENCOUNTER → 2019-10-04 14:57 | Outpatient (CLI) | payer OTHER, SELFPAY ==
[2019-10-04 13:15] VITALS: BMI 38.6
[2019-10-04 16:55] LABS: Absolute Lymphocyte Count 1.16 X10^3/uL (0.83-4.51); Absolute Neutrophil Count 6.6 X10^3/uL (2.0-7.7); Basophil# 0.04 X10^3/uL; Basophil% 0.5 % (0-1); Eosinophil# 0.08 X10^3/uL; Eosinophils% 0.9 % (0-5); Hematocrit 40.3 % (40-54); Hemoglobin 13.4 g/dL (13.0-16.5); Lymphocyte # 1.16 X10^3/ul (4.0); Lymphocyte % 13.5 % (19-41); Mean Corp Hgb Conc 33.3 g/dL (32-36); Mean Corpuscular Hgb 33.1 pg (27.0-32.0); Mean Corpuscular Volume 99.5 fL (80-94); Mean Platelet Vol. 11.5 fl (6.2-12.0); Monocyte# 0.69 X10^3/uL; NRBC Flagged by Analyzer 0 % (0-5); Neutrophil # 6.59 X10^3/uL (2.7-7.7); Neutrophil % 76.6 % (47-70); Platelet Count 264 K/mm3 (150-450); RBC Distribution Width CV 13.3 % (11.6-14.6); RBC Distribution Width SD 47.8 fl (35.1-43.9); Red Blood Count 4.05 M/mm3 (4.6-6.2); White Blood Count 8.6 K/mm3 (4.4-11.0)
[2019-10-04 17:05] LABS: ALB/GLOB Ratio 1.1 RATIO (0.9-2.4); AST(SGOT) 30 U/L (15-37); Alanine Aminotransfer ALT/SGPT 40 U/L (16-61); Albumin, Serum 3.6 g/dL (3.2-5.0); Alkaline Phosphatase 57 U/L (45-117); Anion Gap 9 (5-15); BUN 18 mg/dL (7-18); BUN/Creat Ratio 18.2 RATIO (10-20); Calcium,Total 9.1 mg/dL (8.5-10.1); Chloride 102 mmol/L (98-107); Creatinine, Serum 0.99 mg/dL (0.70-1.30); EST Glomerular Filtration Rate 83 mL/min (>60); Est Glom Filt Rate - Afr Amer 101 mL/min (>60); Globulin 3.4 g/dL (2.2-4.2); Glucose 135 mg/dL (74-106); Potassium 4.3 mmol/L (3.5-5.1); Sodium Level 138 mmol/L (136-145)
== END ==
PROVIDERS: PCP Family Medicine; Visit Provider Physician Assistant Medical
DX: I11.0 Hypertensive heart disease with heart failure (principal); I50.42 Chronic combined systolic (congestive) and diastolic (congestive) heart failure; I48.0 Paroxysmal atrial fibrillation; I42.8 Other cardiomyopathies; E78.5 Hyperlipidemia, unspecified; Z95.810 Presence of automatic (implantable) cardiac defibrillator
CPT/HCPCS: 36415; 80053; 85025

== ENCOUNTER 2019-10-04 17:26 | Observation (INO) | payer OTHER, SELFPAY ==
[2019-10-04] VITALS (7 sets, daily range): BP systolic 114–152; BP diastolic 72–75; PULSE 79–100; RESP 15–22; TEMP 36.5–36.6; O2SAT 96–97; BMI 38.6; BMI 38.8; BMI 38.5
--- NOTE | 2019-10-04 17:33 | EKG12_ITS ---
Test Reason : SOB Blood Pressure : / mmHG Vent. Rate : 085 BPM Atrial Rate : 085 BPM P-R Int : 202 ms QRS Dur : 116 ms QT Int : 400 ms P-R-T Axes : 069 049 -30 degrees QTc Int : 476 ms Normal sinus rhythm Low voltage QRS Borderline ECG Confirmed by EMILY VICENTE, ROM ([id number]), deputy editor in chief SHANICE OSORIO ([id number] on 10/05/2019 10:06:39 AM Referred By: Confirmed By:ROM DIAZ MD
--- NOTE | 2019-10-04 17:41 | CT_ITS ---
STUDY: CT ABDOMEN AND PELVIS WITHOUT CONTRAST REASON FOR EXAM: Male, 59 years old. ABD BLOATING AND SOB. Hx of CHF. RADIATION DOSAGE (If Supplied By Facility): CTDIvol = ( 18.65 ) mGy, DLP = ( 1292.68 ) mGycm TECHNIQUE: Transaxial images were obtained from the dome of the diaphragm to the symphysis pubis without oral contrast, and without intravenous contrast. Sagittal and coronal images were reconstructed. Individualized dose optimization techniques were used for this CT. COMPARISON: None. FINDINGS: Mild diffuse interstitial and emphysematous changes are noted at the lung bases.. The visualized portions of the heart are within normal limits. Normal liver. Normal gallbladder and extrahepatic biliary system. Normal spleen. Normal pancreas. Small hypoattenuated nodule in the right adrenal measuring 2.3 x 2.6 cm likely benign. Left adrenal is normal. Normal right kidney. Normal left kidney. Normal visualized stomach. Normal small intestine. Minor diverticular changes of the distal descending colon without evidence for acute diverticulitis. The appendix is visualized and appears normal. Atherosclerotic changes of the aorta with mild aneurysmal dilatation of the distal aorta measuring 3.55 x 3.35 cm Normal inferior vena cava. Normal retroperitoneum. Normal urinary bladder. Normal abdominal wall. Lumbar spine demonstrates mild degenerative change. CT/Abdomen/Pelvis without Cont IMPRESSION: Minor diverticular changes of the distal descending colon without evidence for acute diverticulitis.. No evidence for small bowel obstruction Incidental finding of mild aneurysmal dilatation of the distal aorta without evidence for periaortic leak. Small hypodense right adrenal nodule most likely adenoma. MRI would be helpful for further assessment if clinically warranted Electronically Signed: Valentino Steward MD at 19:07 EDT , Service support ,
[2019-10-04] MEDS: Aspirin 81 MG TAB.CHEW 324 MG PO (17:47)
--- NOTE | 2019-10-04 17:47 | ED.VISSUMM ---
- ER Visit Summary Date of Service: 10/04/19 Chief Complaint: Shortness of breath History of Present Illness: The patient is a 59 M presenting with shortness of breath. Patient was cardioverted on Friday. He had his Lasix increased to 80 twice daily at that time. He was seen in the ED on Friday for shortness of breath. At that time he was treated and released. He followed up in the cardiology office today. They were concerned due to low blood pressure and abdominal bloating. He was sent to the ED for further evaluation. Patient complains of shortness of breath, dizziness, near syncope, abdominal pain. He denies chest pain. Denies fever or cough. Denies diarrhea or constipation. Denies nausea or vomiting. Denies other complaints. Physical Examination: Vitals are stable. Patient is afebrile. Tachypnea. Alert no acute distress. HEENT exam is unremarkable. Neck is supple. Lungs are diminished bilaterally. Heart is regular rate and rhythm. Abdomen is soft epigastric tenderness, no guarding or rebound. Mild distention. Extremities symmetric edema Skin is warm and dry. No focal neurologic deficit. Remainder of exam is unremarkable. Emergency Department Course and Treatment: EKG is sinus rhythm rate of 85 with no acute ischemic changes. Chest x-ray shows mild interstitial thickening in the lower lobes. Cardiomegaly. No acute infiltration or pulmonary edema. CT abdomen pelvis shows minor diverticular changes of the distal descending colon without evidence for acute diverticulitis.. No evidence for small bowel obstruction. Incidental finding of mild aneurysmal dilatation of the distal aorta without evidence for periaortic leak.Small hypodense right adrenal nodule most likely adenoma. MRI would be helpful for further assessment if clinically warranted. CBC, chemistries unremarkable other than glucose 144. Total bili 2.10. Lipase is 50. Troponin 0.027. BNP 520.9. Discussed with the hospitalist and Dr. Regalado and patient will be observed overnight. Disposition: Observation Impression:Cardiomyopathy, near syncope This note was generated with [employer] dictation software. It may contain incorrect words, spelling, and punctuation that were not noted in review of the chart prior to signing ED Disposition - Plan for ED Patient:
--- NOTE | 2019-10-04 18:30 | RAD_ITS ---
STUDY: X-RAY CHEST REASON FOR EXAM: Male, 59 years old. SOB TECHNIQUE: AP portable COMPARISON: October 02, 2019 FINDINGS: There is mild interstitial thickening in the lower lobes.. There is no demonstrated pleural abnormality. Heart is enlarged.. Normal mediastinum and alyssa. Normal visualized pulmonary arteries. Normal visualized aortic arch and descending thoracic aorta. Normal visualized thoracic spine. Normal visualized ribs, clavicles, and shoulders. There is no demonstrated abnormality of the visualized soft tissue structures of the upper abdomen. RAD/Chest 1 View (Portable) IMPRESSION: Mild interstitial thickening in the lower lobes. Cardiomegaly. No acute infiltration or pulmonary edema Electronically Signed: Valentino Steward MD at 19:00 EDT , Service support ,
[2019-10-04 18:35] LABS: Absolute Lymphocyte Count 1.54 X10^3/uL (0.83-4.51); Absolute Neutrophil Count 5.5 X10^3/uL (2.0-7.7); Basophil# 0.05 X10^3/uL; Basophil% 0.6 % (0-1); Eosinophil# 0.06 X10^3/uL; Eosinophils% 0.8 % (0-5); Hematocrit 39.9 % (40-54); Hemoglobin 13.6 g/dL (13.0-16.5); Lymphocyte # 1.54 X10^3/ul (4.0); Lymphocyte % 19.6 % (19-41); Mean Corp Hgb Conc 34.1 g/dL (32-36); Mean Corpuscular Hgb 33.2 pg (27.0-32.0); Mean Corpuscular Volume 97.3 fL (80-94); Mean Platelet Vol. 11.3 fl (6.2-12.0); Monocyte# 0.63 X10^3/uL; NRBC Flagged by Analyzer 0 % (0-5); Neutrophil # 5.54 X10^3/uL (2.7-7.7); Neutrophil % 70.7 % (47-70); Platelet Count 277 K/mm3 (150-450); RBC Distribution Width CV 13.2 % (11.6-14.6); RBC Distribution Width SD 46.7 fl (35.1-43.9); White Blood Count 7.8 K/mm3 (4.4-11.0)
[2019-10-04 18:57] LABS: BNP,B-Type NATRIURETIC PEPTIDE 520.9 pg/mL (0-100)
[2019-10-04 19:26] LABS: ALB/GLOB Ratio 1.1 RATIO (0.9-2.4); AST(SGOT) 33 U/L (15-37); Alanine Aminotransfer ALT/SGPT 39 U/L (16-61); Albumin, Serum 3.6 g/dL (3.2-5.0); Alkaline Phosphatase 52 U/L (45-117); Anion Gap 8 (5-15); BUN 16 mg/dL (7-18); BUN/Creat Ratio 15.4 RATIO (10-20); Calcium,Total 9.1 mg/dL (8.5-10.1); Chloride 103 mmol/L (98-107); Creatinine, Serum 1.04 mg/dL (0.70-1.30); EST Glomerular Filtration Rate 78 mL/min (>60); Est Glom Filt Rate - Afr Amer 95 mL/min (>60); Estimated Creatinine Clearance 86.01 ml/min; Globulin 3.4 g/dL (2.2-4.2); Glucose 144 mg/dL (74-106); Lipase 50 U/L (73-393); Potassium 4.4 mmol/L (3.5-5.1); Sodium Level 137 mmol/L (136-145)
--- NOTE | 2019-10-04 20:31 | PCM.HP.STD ---
Problem List (1) Presence of implantable cardioverter-defibrillator (ICD) Status: Chronic Comment: [email or web address] [facility] MRIS-ICD @[facility] Dr Bateman 01/01/18 (2) Non-ischemic cardiomyopathy Status: Chronic (3) Orthopnea Status: Chronic (4) Paroxysmal atrial fibrillation Status: Chronic (5) Chronic combined systolic and diastolic CHF (congestive heart failure) Status: Acute (6) Secondary pulmonary arterial hypertension Status: Resolved (7) Essential (primary) hypertension Status: Chronic (8) Hyperlipidemia Status: Chronic Qualifiers: History of Present Illness Date of Admission: 10/04/19 Chief Complaint: SHORT OF BREATH AND DIZZY The patient is a 59 year old male patient with a significant past medical history of cardiomyopathy, paroxysmal atrial fibrillation status post cardioversion this past Friday who presented to his executive vice president for follow-up care today and was found to be hypotensive, dizzy and short of breath. He was sent to the ER for further work-up. The patient had recent increase in dose of Lasix over the last 3 days and this increased may represent the cause of his hypotension. Laboratory studies reveal a white blood cell count of 7.8, hemoglobin 13.6, hematocrit 39.9, platelets 277, sodium 137, potassium 4.4, chloride 103, bicarb 27, BUN 16, creatinine 1.04, glucose 144, BN P5 20.9, chest x-ray positive for cardiomegaly negative for infiltrates or edema. The patient did verbalize to me his concern was staying overnight however after ER physician and executive vice president spoke it was agreed patient would be placed in PCU for observation overnight with gentle IV hydration of normal saline at 50 cc/h and perhaps resume a lower dose of Lasix at 40 mg in the morning and plan for discharge home. Past Medical History Past Medical History (Chronic Problems): Chronic Problems (Last Reviewed 10/04/19 @ 14:31 by FAREED Alcantara) Presence of implantable cardioverter-defibrillator (ICD) (Chronic 01/01/18) [email or web address] [facility] MRIS-ICD @[facility] Dr Bateman 01/01/18 Non-ischemic cardiomyopathy (Chronic) Orthopnea (Chronic) Paroxysmal atrial fibrillation (Chronic) Essential (primary) hypertension (Chronic) Hyperlipidemia (Chronic) Medical History: Medical History (Last Reviewed 10/04/19 @ 14:31 by FAREED Alcantara) Non-ischemic cardiomyopathy (Chronic) I42.8 Paroxysmal atrial fibrillation (Chronic) I48.0 Chronic combined systolic and diastolic CHF (congestive heart failure) (Chronic) I50.42 Sustained ventricular tachycardia (Resolved) Onset Date: 06/29/18 I47.2 Secondary pulmonary arterial hypertension (Resolved) I27.21 Essential (primary) hypertension (Chronic) I10 Hyperlipidemia (Chronic) E78.5 Obesity E66.9 Persistent atrial fibrillation (Resolved) I48.1 Chronic systolic (congestive) heart failure (Inactive) I50.22 Nonrheumatic mitral valve insufficiency (Inactive) I34.0 moderate (2+) per echo 04/14/17 Nonrheumatic tricuspid (valve) insufficiency (Inactive) I36.1 Moderate (2+) per echo 04/14/17 Snoring (Inactive) R06.83 Allergies No Known Allergies Allergy (Verified 10/04/19 17:29) Home Medications: Ambulatory Orders Medication Instructions Recorded carvedilol 25 mg tablet 25 mg PO BID 07/17/17 losartan 25 mg tablet 25 mg PO DAILY 07/17/17 apixaban 5 mg tablet 5 mg PO BID 05/18/18 dapagliflozin 10 mg tablet 10 mg PO DAILY 05/18/18 metformin 1,000 mg tablet 1 tab PO BID 12 Days #24 tab 05/18/18 spironolactone 25 mg tablet 25 mg PO DAILY 30 Days #30 tab 05/18/18 Amiodarone HCl 200 mg PO DAILY 10/04/19 Atorvastatin Calcium [Lipitor] 40 mg PO QHS 10/04/19 Furosemide 40 mg PO BID 10/04/19 Surgical History: Surgical History (Last Reviewed 10/04/19 @ 14:31 by FAREED Alcantara) Presence of implantable cardioverter-defibrillator (ICD) (Chronic) Onset Date: 01/01/18 Z95.810 [employer] [facility] MRIS-ICD @[facility] Dr Bateman 01/01/18 History of cardioversion Onset Date: 10/01/19 Z98.890 06/15/18, 10/01/2019 History of left heart catheterization Onset Date: 10/13/12 Z98.890 History of oral surgery Z98.890 multiple extractions Surgical History: - - AICD Psychiatric History: No pertinent psych hx Smoking Status: Former smoker - *Family History Sibling Family History: Family History (Last Reviewed 10/04/19 @ 14:31 by FAREED Alcantara) Mother CAD (coronary artery disease) Father Cancer History Items: Heart Disease - Brother had CABG. Sister recently of congestive heart failure at the age of 58. Paternal Family History: Family History (Last Reviewed 10/04/19 @ 14:31 by FAREED Alcantara) Mother CAD (coronary artery disease) Father Cancer History Items: Cancer, Heart Disease Review of Systems Constitutional: Reports: Weakness. Denies: Chills, Fever, Weight Change HEENT: Denies: Head Aches, Sinus Congestion, Sinus Drainage Cardiovascular: Denies: Chest Pain, Palpitations Respiratory: Reports: Shortness of Breath. Denies: Cough, Sputum production Gastrointestinal: Denies: Abdominal Pain, Nausea, Vomiting Genitourinary: Denies: Dysuria Musculoskeletal: Denies: Joint Pain, Joint Tenderness Skin: Denies: Rash, Wounds Neurological: Denies: Numbness, Tingling, Focal weakness Psychiatric: Denies: Anxiety, Depression, Homicidal Ideations, Suicidal Ideations Hematologic/ Lymphatic: Denies: Easy Bruising, Easy Bleeding VTE Information - Inpt Only VTE Present on Admission: No VTE Mechan Device Prophylaxis: SCD's VTE Pharm Prophylaxis ordered?: No - Physical Exam Vitals/I&O's: Vital Signs Temp Pulse Resp BP Pulse Ox 97.9 F 100 22 H 114/72 97 10/04/19 19:53 10/04/19 19:53 10/04/19 19:53 10/04/19 19:53 10/04/19 19:53 Oxygen Flow Rate (L/min) 1 Oxygen Delivery Method Room Air Weight: 286 lb 6.087 oz Body Mass Index (BMI) 38.8 General: Alert, Oriented x3, Cooperative HEENT: Atraumatic, Normocephalic Neck: Supple, Negative Carotid Bruits Lungs: Clear to auscultation, Normal air movement, No rhonchi, No wheeze, No rales Cardiovascular: Regular rate, Normal S1, Normal S2, No murmurs, Tachycardic Abdomen: Bowel Sounds Present, Soft, Non Tender, Obese Extremities: Edema - trace Skin: No rashes Musculoskeletal: No Tenderness to Palpation of Joints or Extremities Neurological: Neuro grossly intact Psych/Mental Status: Normal Affect, Appropriate Laboratory Results 10/04/19 18:15: WBC 7.8, RBC 4.10 L, Hgb 13.6, Hct 39.9 L, MCV 97.3 H, MCH 33.2 H, MCHC 34.1, RDW Std Deviation 46.7 H, RDW Coeff of Kaylee 13.2, Plt Count 277, MPV 11.3, Immature Gran % (Auto) 0.300, Neut % (Auto) 70.7 H, Lymph % (Auto) 19.6, [place] % (Auto) 8.0, Eos % (Auto) 0.8, Baso % (Auto) 0.6, Absolute Neuts (auto) 5.5, Absolute Lymphs (auto) 1.54, Nucleated RBC % 0 10/04/19 18:15: Sodium 137, Potassium 4.4, Chloride 103, Carbon Dioxide 26.0, Anion Gap 8, BUN 16, Creatinine 1.04, Estim Creat Clear Calc 86.01, Est GFR (MDRD) Af Amer 95, Est GFR (MDRD) Non-Af 78, BUN/Creatinine Ratio 15.4, Glucose 144 H, Calcium 9.1, Total Bilirubin 2.10 H, AST 33, ALT 39, Alkaline Phosphatase 52, Troponin I 0.027, Total Protein 7.0, Albumin 3.6, Globulin 3.4, Albumin/Globulin Ratio 1.1, Lipase 50 L 10/04/19 18:15: B-Natriuretic Peptide 520.9 H Assessment/Plan All Active Problems (Last Reviewed 10/04/19 @ 14:31 by FAREDE Alcantara) Chronic combined systolic and diastolic CHF (congestive heart failure) (Acute) Sustained ventricular tachycardia (Resolved 06/29/18) Secondary pulmonary arterial hypertension (Resolved) Acute exacerbation of congestive heart failure (Resolved) Persistent atrial fibrillation (Resolved) Chronic Problems (Last Reviewed 10/04/19 @ 14:31 by FAREED Alcantara) Presence of implantable cardioverter-defibrillator (ICD) (Chronic 01/01/18) [email or web address] [facility] MRIS-ICD @[facility] Dr Bateman 01/01/18 Non-ischemic cardiomyopathy (Chronic) Orthopnea (Chronic) Paroxysmal atrial fibrillation (Chronic) Essential (primary) hypertension (Chronic) Hyperlipidemia (Chronic) Plan 1. Cardiomyopathy/congestive heart failure/status post cardioversion?due to recent increase in Lasix dose following his cardioversion to sinus rhythm which she remains in , the patient is most likely dehydrated and will be admitted for observation and gentle IV hydration overnight. Repeat BMP in the morning?we will hold Lasix for now and consider resuming at 40 mg in the morning. Last ejection fraction was 80% in 2018 will defer ordering echocardiogram due to recent cardioversion and would ask executive vice president when the next appropriate echocardiogram will be. 2. That is post cardioversion patient should be anticoagulated. 3. Hypertension?hold medication while patient is hypotensive. 4. Hyperlipidemia?continue statin medication 5. DVT prophylaxis?SCDs Inpatient E&M: 20081 Init Hosp L3
[2019-10-04] MEDS: APIXABAN 5 MG TABLET PO (21:25)
[2019-10-04] MEDS: 0.9% Saline Lock 10 ML Syringe IV (21:26)
[2019-10-04] MEDS: 0.9% Normal Saline 1,000 ML 50 ML IV (21:26)
[2019-10-04] MEDS: Atorvastatin Calcium 40 MG Tablet PO (21:26)
[2019-10-05 03:08] VITALS: BP 94/63; PULSE 70; RESP 16; TEMP 36.7; O2SAT 97
[2019-10-05 03:14] VITALS: PULSE 71
[2019-10-05 06:29] LABS: Anion Gap 4 (5-15); BUN 17 mg/dL (7-18); BUN/Creat Ratio 16.7 RATIO (10-20); Calcium,Total 8.9 mg/dL (8.5-10.1); Chloride 104 mmol/L (98-107); Creatinine, Serum 1.02 mg/dL (0.70-1.30); EST Glomerular Filtration Rate 80 mL/min (>60); Est Glom Filt Rate - Afr Amer 97 mL/min (>60); Glucose 173 mg/dL (74-106); Sodium Level 137 mmol/L (136-145)
[2019-10-05 06:59] VITALS: PULSE 74
[2019-10-05 07:30] VITALS: O2SAT 95
--- NOTE | 2019-10-05 07:59 | CON.PCM_ITS ---
Reason for Consult Date of Consultation: 10/05/19 Reason for Consultation: Weakness History of Present Illness: The patient is a 59 year old M with a history of nonischemic cardiomyopathy estimated ejection fraction 15% status post subcutaneous ICD implantation who was in atrial fibrillation and was anticoagulated. He presented to the hospital last week for an elective DC cardioversion. He did well after that was maintaining sinus rhythm and then presented to the emergency room over the weekend saying he was not feeling well. He had blood work done which was noted to be unremarkable in terms of his CBC as well as a chemistry profile. He continued not to feel well complaining of mild chest discomfort presented to the office yesterday was thought to be hypotensive and not looking well. He was sent home and subsequently called back to the emergency room where he was eval uated. In the emergency room he was seen by the ER physician his blood pressure was noted to be normal his oxygen saturation was 97 on room air his BT COREMAKING SUPERVISOR was elevated in the 300s his EKG demonstrated sinus rhythm. The nurse practitioner who had seen him previously had said that he had abdominal bloating and thus he underwent a CT scan of his abdomen which did not demonstrate any significant pathology. It was decided to admit him overnight for observation he is done well this morning he looks good without any change in therapy. His oxygenation is normal his blood pressure is borderline but he is asymptomatic and he is maintaining sinus rhythm. [] Past Medical History Allergies/Adverse Reactions: Allergies No Known Allergies Allergy (Verified 10/04/19 17:29) Home Medications: Ambulatory Orders Medication Instructions Recorded carvedilol 25 mg tablet 25 mg PO BID 07/17/17 losartan 25 mg tablet 25 mg PO DAILY 07/17/17 apixaban 5 mg tablet 5 mg PO BID 05/18/18 dapagliflozin 10 mg tablet 10 mg PO DAILY 05/18/18 metformin 1,000 mg tablet 1 tab PO BID 12 Days #24 tab 05/18/18 spironolactone 25 mg tablet 25 mg PO DAILY 30 Days #30 tab 05/18/18 Amiodarone HCl 200 mg PO DAILY 10/04/19 Atorvastatin Calcium [Lipitor] 40 mg PO QHS 10/04/19 Furosemide 80 mg PO BID 10/04/19 Past Medical History (Chronic Problems): Chronic Problems (Last Reviewed 10/04/19 @ 14:31 by FAREED Alcantara) Presence of implantable cardioverter-defibrillator (ICD) (Chronic 01/01/18) [employer] [facility] MRIS-ICD @[facility] Dr Bateman 01/01/18 Non-ischemic cardiomyopathy (Chronic) Orthopnea (Chronic) Paroxysmal atrial fibrillation (Chronic) Essential (primary) hypertension (Chronic) Hyperlipidemia (Chronic) Surgical History: - - AICD Psychiatric History: No pertinent psych hx - *Family History Sibling Family History: Family History (Last Reviewed 10/04/19 @ 14:31 by FAREED Alcantara) Mother CAD (coronary artery disease) Father Cancer History Items: Heart Disease - Brother had CABG. Sister recently of congestive heart failure at the age of 58. Paternal Family History: Family History (Last Reviewed 10/04/19 @ 14:31 by FAREED Alcantara) Mother CAD (coronary artery disease) Father Cancer History Items: Cancer, Heart Disease Smoking Status: Former smoker Alcohol: None Drugs: None Review of Systems - Review of Systems General: Reports: Fatigue, Malaise. Denies: Fever, Night Sweats HEENT: Denies: Vision Change Cardiovascular: Denies: Chest Discomfort, Shortness of Breath, Orthopnea, PND, Peripheral Edema, Palpitations, Lightheadedness, Dizziness, Near Syncope, Syncope Respiratory: Denies: Cough, Sputum Production, Hemoptysis Gastrointestinal: Denies: Hematemesis, Hematochezia, Melena Genitourinary: Denies: Dysuria, Hematuria Skin: Denies: Rash Neurological: Denies: Dizziness Psychiatric: Denies: Anxiety Endocrine: Denies: Excessive Sweating Subjectve: Pleasant man looks good joking in bed Objective: Vital Signs Temp Pulse Resp BP Pulse Ox 98.1 F 74 16 94/63 95 10/05/19 03:08 10/05/19 06:59 10/05/19 03:08 10/05/19 03:08 10/05/19 07:30 Oxygen Flow Rate (L/min) 1 Oxygen Delivery Method Room Air Weight: 284 lb 6.341 oz Body Mass Index (BMI) 38.5 Intake and Output for Last 24 Hours 10/03/19 10/04/19 10/05/19 23:59 23:59 23:59 Intake Total 320 / 320 Output Total 600 / 600 Balance -280 / -280 General: Awake, Alert, Oriented x 3 HEENT: PERRL, EOMI, Sclera Non Icteric Neck: Supple, Good ROM, No Lymph Node Enlargement Lungs: Clear to auscultation Cardiovascular: Regular Rhythm, Normal S1, Normal S2, No Murmurs, No Rubs, No Gallops Vascular: No Carotid Bruits, Normal Femoral Pulses, Normal Radial Pulses, Normal Dorsalis Pedal Pulse, Normal Posterior Tibial Pulses Abdomen: Bowel Sounds Present, Soft, Non Tender, No HSM, No Organomegaly Extremities: No Cyanosis, No Clubbing, No edema Musculoskeletal: No Erythema Skin: No Rashes Lymphatic: No Lymph Node Enlargement Neurological: No Focal Motor or Sensory Deficit 10/04/19 18:15: WBC 7.8, RBC 4.10 L, Hgb 13.6, Hct 39.9 L, MCV 97.3 H, MCH 33.2 H, MCHC 34.1, Plt Count 277, MPV 11.3, Immature Gran % (Auto) 0.300, Neut % (Auto) 70.7 H, Lymph % (Auto) 19.6, Atkinson % (Auto) 8.0, Eos % (Auto) 0.8, Baso % (Auto) 0.6, Absolute Neuts (auto) 5.5, Nucleated RBC % 0 10/04/19 18:15: Sodium 137, Potassium 4.4, Chloride 103, Carbon Dioxide 26.0, Anion Gap 8, BUN 16, Creatinine 1.04, Est GFR (MDRD) Af Amer 95, Est GFR (MDRD) Non-Af 78, BUN/Creatinine Ratio 15.4, Glucose 144 H, Calcium 9.1, Total Bilirubin 2.10 H, Troponin I 0.027 10/04/19 18:15: B-Natriuretic Peptide 520.9 H 10/05/19 05:40: Sodium 137, Potassium 4.0, Chloride 104, Carbon Dioxide 29.0, Anion Gap 4 L, BUN 17, Creatinine 1.02, Est GFR (MDRD) Af Amer 97, Est GFR (MDRD) Non-Af 80, BUN/Creatinine Ratio 16.7, Glucose 173 H, Calcium 8.9 Rhythm: EKG: ECHO: Stress Test: Cardiac Cath: PCI: CT Surgery: Holter monitor: EPS: PPM: CXR: Chest CT Scan: Assessment/Plan 1. Congestive heart failure systolic * He does have chronic systolic congestive heart failure. It is nonischemic in etiology. It was felt that the atrial fibrillation may have been con attributing to the above and thus his cardioversion. He remains on a beta- cassie ARB, spironolactone and this will be continued. In addition he will remain on his Lasix 40 mg twice a day. * 2. History of atrial fibrillation * He is maintaining sinus rhythm at this time he will remain on the anticoagulation as well as the amiodarone. No other changes will be made. * 3. Status post subcutaneous ICD implantation * He will continue follow-up on the above in the office. * * Overall it appears that he is doing well. He needs to maintain his office appointment as well as his dietary salt restriction. I discussed the above with the hospitalist as well as the patient. Outpatient follow-up * * Thank you for allowing me to participate in the care of your patient. Please don't hesitate to call if any issues arise.
[2019-10-05 09:10] VITALS: BP 114/77; PULSE 83; RESP 14; TEMP 36.7; O2SAT 95
--- NOTE | 2019-10-05 10:07 | DCINST_ITS ---
You will use the following diet at home:: Cardiac, Other - fluid restriction to 1.5 litre and 2 gm sodium diet Your food should be the consistency of: Regular Discharge Activity: May Not Drive Call your doctor if you observe: Fever of 101 or Higher, Numbness or Tingling, Change in Color, Inability to urinate, Shortness of breath, Dizziness, Fainting spells, Swelling in the ankles, Chest pain, Prolonged hiccoughing, Increased palpitations (irregular heartbeat), Calf discomfort, Uncontrolled pain Allergies/Adverse Reactions: Allergies No Known Allergies Allergy (Verified 10/04/19 17:29) Medications to take at Discharge losartan 25 mg tablet 25 mg PO DAILY 07/17/17 apixaban 5 mg tablet 5 mg PO BID 05/18/18 dapagliflozin 10 mg tablet 10 mg PO DAILY 05/18/18 metformin 1,000 mg tablet 1 tab PO BID 12 Days #24 tab 05/18/18 spironolactone 25 mg tablet 25 mg PO DAILY 30 Days #30 tab 05/18/18 Amiodarone HCl 200 mg PO DAILY 10/04/19 Atorvastatin Calcium [Lipitor] 40 mg PO QHS 10/04/19 Carvedilol 25 mg PO BID #0 10/05/19 Furosemide 40 mg PO BID #0 10/05/19 Primary Care Physician: Diimtry Lainez MD [Primary Care Provider] - Please follow up with your Primary Care Physician in: in 2 week Test Results: Test results from this visit will be discussed in further detail at your follow- up appointment, if applicable. Please Follow Up With: Brady Regalado MD When: in 2 weeks
--- NOTE | 2019-10-05 10:16 | PCM.DC.SUM ---
Discharge Date and Diagnosis Date of Admission: 10/04/19 Date of Discharge: 10/05/19 - Primary Discharge Diagnosis Acute Problems: Hypotension secondary to increased dose of Lasix: Resolved - Secondary Discharge Diagnosis Chronic Problems: Chronic Problems (Last Reviewed 10/04/19 @ 14:31 by FAREED Alcantara) Presence of implantable cardioverter-defibrillator (ICD) (Chronic 01/01/18) [employer] [facility] MRIS-ICD @[facility] Dr Bateman 01/01/18 Non-ischemic cardiomyopathy (Chronic) Orthopnea (Chronic) Paroxysmal atrial fibrillation (Chronic) Essential (primary) hypertension (Chronic) Hyperlipidemia (Chronic) Hospital Course and Treatment Summary of Care Provided: The patient is a 59 year old M with history of nonischemic cardiomyopathy, paroxysmal A. fib status post cardioversion and end-stage heart failure status post AICD was admitted for hypotension, dizziness and shortness of breath. Patient has recently increased Lasix 80 mg twice daily for last 3 days and found very dizzy and the cause of hypotension. Patient was given IV fluid and her blood pressure is much improved 114/77. Patient was admitted in PCU. Desk Lieutenant was consulted. Lasix was held during hospital course and advised to decrease Lasix 40 mg twice daily. On metal forger's assistant shows sinus rhythm. Patient is on beta-cassie, ARB, spironolactone, amiodarone, atorvastatin and Eliquis. Patient also history of diabetes mellitus type 2 and is on metformin and dapagliflozin. Patient was seen by tag clerk and recommended discharge. Patient has other comorbidities which includes dyslipidemia, hypertension, nonischemic cardiomyopathy and CHF class IV. Patient hypotension was corrected and is resolved. Discharge medication reconciliation done. Discharge follow-up instructions completed. Discharge process discussed with the patient and all questions were answered to patient's satisfaction. Total time spent, exact 35 minutes on discharge meds reconciliation, examination, coordination of care with nurses and ancillary staff, review of imaging and blood test and discussion with the patient on follow-up instructions Objective: Seen and examined. Heart rate and blood pressure is controlled. No hypoxia or tachypnea. Patient denies shortness of breath. No significant leg swelling. - Physical Exam Vitals/I&O's: Vital Signs Temp Pulse Resp BP Pulse Ox 98.0 F 83 14 114/77 95 10/05/19 09:10 10/05/19 09:10 10/05/19 09:10 10/05/19 09:10 10/05/19 09:10 Oxygen Flow Rate (L/min) 1 Oxygen Delivery Method Room Air Weight: 284 lb 6.341 oz Body Mass Index (BMI) 38.5 Intake and Output for Last 24 Hours 10/03/19 10/04/19 10/05/19 23:59 23:59 23:59 Intake Total 320 / 320 Output Total 600 / 600 Balance -280 / -280 General: Alert, Oriented x3, Cooperative HEENT: Atraumatic, PERRLA, EOMI, Normocephalic Neck: Supple, No JVD, Negative Carotid Bruits Lungs: Clear to auscultation, No rhonchi, No wheeze, No rales, Diminished - Air entry diminished in bilateral lung bases Cardiovascular: Regular rate, Regular Rhythm, Normal S1, Normal S2, No murmurs, - Abdomen: Bowel Sounds Present, Soft, Non Tender, Non-Distended - AICD present Extremities: Capillary Refill Less than 3 Seconds, Edema - Very mild edema Skin: No rashes, No breakdown Musculoskeletal: No Tenderness to Palpation of Joints or Extremities, Arthritic Changes Neurological: Cranial nerves II-XII grossly intact, Deep Tendon Reflexes 2+/4 and Symmetrical, Neuro grossly intact Psych/Mental Status: Normal Affect, Appropriate Laboratory Results 10/04/19 18:15: WBC 7.8, RBC 4.10 L, Hgb 13.6, Hct 39.9 L, MCV 97.3 H, MCH 33.2 H, MCHC 34.1, RDW Std Deviation 46.7 H, RDW Coeff of Kaylee 13.2, Plt Count 277, MPV 11.3, Immature Gran % (Auto) 0.300, Neut % (Auto) 70.7 H, Lymph % (Auto) 19.6, Gillespie % (Auto) 8.0, Eos % (Auto) 0.8, Baso % (Auto) 0.6, Absolute Neuts (auto) 5.5, Absolute Lymphs (auto) 1.54, Nucleated RBC % 0 10/04/19 18:15: Sodium 137, Potassium 4.4, Chloride 103, Carbon Dioxide 26.0, Anion Gap 8, BUN 16, Creatinine 1.04, Estim Creat Clear Calc 86.01, Est GFR (MDRD) Af Amer 95, Est GFR (MDRD) Non-Af 78, BUN/Creatinine Ratio 15.4, Glucose 144 H, Calcium 9.1, Total Bilirubin 2.10 H, AST 33, ALT 39, Alkaline Phosphatase 52, Troponin I 0.027, Total Protein 7.0, Albumin 3.6, Globulin 3.4, Albumin/Globulin Ratio 1.1, Lipase 50 L 10/04/19 18:15: B-Natriuretic Peptide 520.9 H 10/05/19 05:40: Sodium 137, Potassium 4.0, Chloride 104, Carbon Dioxide 29.0, Anion Gap 4 L, BUN 17, Creatinine 1.02, Estim Creat Clear Calc 87.70, Est GFR (MDRD) Af Amer 97, Est GFR (MDRD) Non-Af 80, BUN/Creatinine Ratio 16.7, Glucose 173 H, Calcium 8.9 Current Medications Amiodarone HCl (Cordarone) 200 mg PO DAILY [facility] Apixaban (Eliquis) 5 mg PO BID [facility] Last Admin: 10/04/19 21:25 Dose: 5 mg Documented by: Atorvastatin Calcium (Lipitor) 40 mg PO QHS [facility] Last Admin: 10/04/19 21:26 Dose: 40 mg Documented by: Empagliflozin (Jardiance) 25 mg PO DAILY [facility] Sodium Chloride () 1,000 mls @ 50 mls/hr IV .Q20H [facility] Last Admin: 10/04/19 21:26 Dose: 50 mls/hr Documented by: Metformin HCl (Glucophage) 1,000 mg PO BIDCM [facility] Sodium Chloride () 10 - 40 ml IV UD PRN PRN Reason: SALINE FLUSH Last Admin: 10/04/19 21:26 Dose: 10 ml Documented by: Discharge Activity: May Not Drive Call your doctor if you observe: Fever of 101 or Higher, Numbness or Tingling, Change in Color, Inability to urinate, Shortness of breath, Dizziness, Fainting spells, Swelling in the ankles, Chest pain, Prolonged hiccoughing, Increased palpitations (irregular heartbeat), Calf discomfort, Uncontrolled pain Home Medications: Medications to take at Discharge losartan 25 mg tablet 25 mg PO DAILY 07/17/17 apixaban 5 mg tablet 5 mg PO BID 05/18/18 dapagliflozin 10 mg tablet 10 mg PO DAILY 01/21/19 metformin 1,000 mg tablet 1 tab PO BID 12 Days #24 tab 05/18/18 spironolactone 25 mg tablet 25 mg PO DAILY 30 Days #30 tab 05/18/18 Amiodarone HCl 200 mg PO DAILY 10/04/19 Atorvastatin Calcium [Lipitor] 40 mg PO QHS 10/04/19 Carvedilol 25 mg PO BID #0 10/05/19 Furosemide 40 mg PO BID #0 10/05/19 Primary Care Physician: Dimitry Lainez MD [Primary Care Provider] - Please follow up with your Primary Care Physician in: in 2 week Please Follow Up With: Brady Regalado MD When: in 2 weeks Medical Necessity - Tobacco Use Smoking Status: Former smoker Meaningful Use Info Meaningful Use Diagnoses (Choose all that apply): CHF - CHF MICHELLE/ARB ordered at discharge?: Yes Documented LVEF (%): 15 Inpatient E&M: 42164 Disch Hosp
== END 2019-10-05 10:10 | disposition home or self-care (01) ==
LOC: ED 18:47 → PCU 21:08
PROVIDERS: Admitting Provider Family Medicine; Emergency Provider Emergency Medicine; PCP Family Medicine; Visit Provider Internal Medicine
DX: I95.2 Hypotension due to drugs (principal); T50.1X5A Adverse effect of loop [high-ceiling] diuretics, initial encounter; I48.0 Paroxysmal atrial fibrillation; E78.5 Hyperlipidemia, unspecified; I42.8 Other cardiomyopathies; R06.02 Shortness of breath; E11.9 Type 2 diabetes mellitus without complications; I11.0 Hypertensive heart disease with heart failure; I50.42 Chronic combined systolic (congestive) and diastolic (congestive) heart failure; I27.21 Secondary pulmonary arterial hypertension; E66.9 Obesity, unspecified; Z68.38 Body mass index [BMI] 38.0-38.9, adult; Z79.01 Long term (current) use of anticoagulants; Z79.899 Other long term (current) drug therapy; Z79.82 Long term (current) use of aspirin; Z95.810 Presence of automatic (implantable) cardiac defibrillator; Z79.84 Long term (current) use of oral hypoglycemic drugs; Z87.891 Personal history of nicotine dependence
CPT/HCPCS: 36415; 71045; 74176; 80048; 80053; 83690; 83880; 84484; 85025; 93005; 99218; 99285; J7030; A4216; G0378

== ENCOUNTER → 2020-09-14 09:38 | Outpatient (CLI) | payer OTHER, SELFPAY ==
[2020-07-04 09:00] VITALS: BMI 38.1
--- NOTE | 2020-09-14 09:41 | ECHOCS_ITS ---
Reason For Study: DYSPNEA/SOB Procedure This was a 2D Doppler, Color Flow transthoracic echocardiogram. The study was technically difficult. Due to body habitus. Contrast injection was performed. Exam performed in department. Left Ventricle Moderately dilated left ventricle. Moderately severe global left ventricular systolic dysfunction. Moderately severe segmental systolic dysfunction (see wall motion). Stage 1 diastolic dysfunction. The estimated ejection fraction is 20 %. [place] : Akinetic. The rest of the wall segments are hypokinetic. Atria The left atrium is mildly enlarged. Mitral Valve B[place]aflet diffuse mitral valve thickening. Mild (1+) eccentric mitral valve insufficiency. Tricuspid Valve The tricuspid valve is not well visualized. Mild (1+) tricuspid valve insufficiency. Pulmonary artery systolic pressure is 31 mmHg. Aortic Valve The aortic valve is not well visualized. Pulmonic Valve The pulmonic valve is not well visualized. Great Vessels Normal aortic root. The pulmonary artery is normal size. Normal inferior vena cava. Pericardium/Pleural No pericardial effusion. Medication 22 gauge I.V. with prn adaptor inserted into right arm. Diluted definity 4.0ml given slow IV push to enhance endocardial definition. MMode/2D Measurements & Calculations LVIDd: 8.5 cm IVSd: 0.99 cm Ao root diam: 3.6 cm LVIDs: 7.1 cm LVPWd: 1.4 cm RVDd: 2.9 cm FS: 17.3 % LAV(MOD-bp): 112.5 ml LVAd ap4: 54.6 cm2 LVAd ap2: 45.7 cm2 LAV(MOD-bp) Indexed: 45.7 ml/m2 LVLd ap4: 10.4 cm LVLd ap2: 10.1 cm LAV(MOD-sp2): 102.0 ml EDV(MOD-sp4): 236.3 ml EDV(MOD-sp2): 168.3 ml LAV(MOD-sp4): 115.2 ml EDV(sp4-el): 242.5 ml EDV(sp2-el): 176.4 ml LVAs ap4: 42.6 cm2 LVAs ap2: 35.3 cm2 LVLs ap4: 9.4 cm LVLs ap2: 9.2 cm ESV(MOD-sp4): 164.2 ml ESV(MOD-sp2): 110.7 ml ESV(sp4-el): 164.4 ml ESV(sp2-el): 114.8 ml EF(MOD-sp4): 30.5 % EF(MOD-sp2): 34.2 % EF(sp4-el): 32.2 % SV(MOD-sp4): 72.2 ml SV(MOD-sp2): 57.6 ml SV(sp4-el): 78.2 ml LA A4 area: 29.4 cm2 LA dimension(2D): 5.9 cm RA A4 area: 17.7 cm2 Time Measurements MV dec time: 0.21 sec Doppler Measurements & Calculations MV E max abner: 52.0 cm/sec Ao V2 max: 143.2 cm/sec LV V1 max: 90.9 cm/sec MV A max abner: 66.8 cm/sec Ao max P.2 mmHg LV V1 max P.3 mmHg MV E/A: 0.78 MR max abner: 486.6 cm/sec PA V2 max: 90.5 cm/sec TR max abner: 255.7 cm/sec MR max P.7 mmHg TR max P.2 mmHg MR mean abner: 387.8 cm/sec MR mean P.2 mmHg MR VTI: 199.3 cm ECHO/Echo Complete W/ Contrast Interpretation Summary Moderately dilated left ventricle. Moderately severe global left ventricular systolic dysfunction. Moderately severe segmental systolic dysfunction (see wall motion). Mild (1+) eccentric mitral valve insufficiency. Stage 1 diastolic dysfunction. The estimated ejection fraction is 20 %. Ordering Physician: Brady Regalado Referring Physician: Maico Lainez Performed By: Donya Cooper, RDCS, RVT
== END ==
PROVIDERS: PCP Family Medicine; Referring Provider Internal Medicine Cardiovascular Disease; Visit Provider Internal Medicine Cardiovascular Disease
DX: R06.00 Dyspnea, unspecified (principal); R06.02 Shortness of breath
CPT/HCPCS: 93306; Q9957; A4216; C8929

== ENCOUNTER → 2021-02-05 12:11 | Outpatient (CLI) | payer OTHER, SELFPAY ==
--- NOTE | 2021-02-05 12:15 | RAD_ITS ---
STUDY: X-RAY CHEST REASON FOR EXAM: Male, 60 years old. Fpc use of Amiodarone TECHNIQUE: Frontal and lateral views of the chest COMPARISON: 04 October 2019 FINDINGS: Electronic relation device, probably pacemaker is implanted in the left abdominal flank with external lead over the precordium. The lungs are clear and expanded. There is no demonstrated pleural abnormality. Normal size heart. Normal mediastinum and alyssa. Normal visualized pulmonary arteries. Normal visualized aortic arch and descending thoracic aorta. Normal visualized thoracic spine. Normal visualized ribs, clavicles, and shoulders. There is no demonstrated abnormality of the visualized soft tissue structures of the upper abdomen. RAD/Chest PA and Lateral IMPRESSION: Normal x-ray examination of the chest. Electronically Signed: Melba Amin MD at 15:17 EDT Tel , Service support ,
[2021-02-05 14:36] LABS: AST(SGOT) 23 U/L (15-37); Alanine Aminotransfer ALT/SGPT 20 U/L (16-61); Albumin, Serum 3.7 g/dL (3.2-5.0); Alkaline Phosphatase 67 U/L (45-117); Bilirubin, Direct 0.13 mg/dL (0.00-0.30); Globulin 3.5 g/dL (2.2-4.2); Protein, Total 7.2 g/dL (6.4-8.2); T4 Free Direct 1.29 ng/dL (0.76-1.46); Thyroid Stim Hormone (TSH) 2.72 uIU/mL (0.358-3.74)
== END ==
PROVIDERS: PCP Family Medicine; Referring Provider Nurse Practitioner Gerontology; Visit Provider Nurse Practitioner Gerontology
DX: Z79.899 Other long term (current) drug therapy (principal)
CPT/HCPCS: 36415; 71046; 80076; 84439; 84443

== ENCOUNTER → 2021-02-23 10:51 | Outpatient (CLI) | payer OTHER, SELFPAY ==
--- NOTE | 2021-02-23 14:40 | PFTCOMP ---
COMPLETE PULMONARY FUNCTION TEST INTERPRETATION Brief HPI: Patient is a 60 year old male, currently under the care of Conchita East, who presents to [facility] for complete pulmonary function tests secondary to diagnosis of long-term med use. Respiratory therapist reports good effort and reproducible results. Interpretation: Forced expiration spirometry shows a mild large airways obstructive ventilatory defect with an FEV1 of 80% predicted. There is no significant bronchodilator response by strict ATS criteria. Spirograms are of good quality and plateau slowly, indicating slowly emptying areas of the lungs. The respiratory flow volume loop shows decreased expiratory flow rates at all lung volumes consistent with airway obstruction. Lung volumes by body plethysmography show a normal total lung capacity at 6.71 L, 94% predicted. All other lung volumes are within normal limits. Diffusion capacity by carbon monoxide is normal at 92% predicted. The airway resistance is normal. No previous pulmonary function tests were available for review. Impression: Irreversible mild large airways obstructive ventilatory defect in a pattern consistent with chronic bronchitis
== END ==
PROVIDERS: PCP Family Medicine; Referring Provider Nurse Practitioner Gerontology; Visit Provider Nurse Practitioner Gerontology
DX: Z79.899 Other long term (current) drug therapy (principal)
CPT/HCPCS: 94060; 94726; 94729

== ENCOUNTER → 2021-10-02 | Outpatient (CLI) | payer OTHER, SELFPAY ==
[2021-10-02 14:01] VITALS: PULSE 64; PULSE 71; PULSE 86; PULSE 87; PULSE 88; PULSE 89; PULSE 90; O2SAT 94; O2SAT 95; O2SAT 96
--- NOTE | 2021-10-02 15:07 | PCM.PSN.6M ---
PSN 6 Minute Walk Test 6 Minute Walk Test 6 Minute Walk Test: 6 Minute Walk Test PSN:6-Minute Walk Test Start: 10/02/21 14:00 Freq: Status: Active Protocol: [id number].[id number] Document 10/02/21 14:01 [facility] (Rec: 10/02/21 14:05 [facility] [id number]) 6 Minute Walk Test Date Performed 10/02/21 Time Performed 13:45 Height 6 ft Weight: 117.934 kg Weight in Pounds 260.[address]: Marco Drake Assistive device used: None Pre-test Oxygen Delivery Method Room Air Pulse Ox (%) 95 Pulse Rate (60-100 beats/min) 64 Dyspnea Bobby Scale (0-10) 2 1st minute Oxygen Delivery Method Room Air Pulse Ox (%) 95 Pulse Rate (60-100 beats/min) 87 Dyspnea Bobby Scale (0-10) 2 Number of Rests Taken 0 2nd minute Oxygen Delivery Method Room Air Pulse Ox (%) 94 Pulse Rate (60-100 beats/min) 86 Dyspnea Bobby Scale (0-10) 3 Number of Rests Taken 0 Reported Symptoms Increased Work of Breathing 3rd minute Oxygen Delivery Method Room Air Pulse Ox (%) 95 Pulse Rate (60-100 beats/min) 88 Dyspnea Bobby Scale (0-10) 3 Number of Rests Taken 0 Reported Symptoms Increased Work of Breathing 4th minute Oxygen Delivery Method Room Air Pulse Ox (%) 94 Pulse Rate (60-100 beats/min) 87 Dyspnea Bobby Scale (0-10) 3 Number of Rests Taken 0 Reported Symptoms Increased Work of Breathing 5th minute Oxygen Delivery Method Room Air Pulse Ox (%) 94 Pulse Rate (60-100 beats/min) 90 Dyspnea Bobby Scale (0-10) 4 Number of Rests Taken 0 Reported Symptoms Increased Work of Breathing 6th minute Oxygen Delivery Method Room Air Pulse Ox (%) 94 Pulse Rate (60-100 beats/min) 89 Dyspnea Bobby Scale (0-10) 4 Number of Rests Taken 0 Reported Symptoms Increased Work of Breathing Post-test Oxygen Delivery Method Room Air Pulse Ox (%) 96 Pulse Rate (60-100 beats/min) 71 Dyspnea Bobby Scale (0-10) 2 Full Laps Walked 16 Partial Lap, Number of Tiles Walked 0 Total Distance Walked (ft) 944 Interpretation Interpretation: Patient was noted to have a saturation of 95% on room air. The patient experienced no significant desaturation or tachycardia during testing. In total, the patient traveled 944 feet over the course of 6 minutes on room air with no assistive devices or breaks. These findings are consistent with a musculoskeletal limitation exercise tolerance. Recommendations Recommendations: No supplemental oxygen is indicated at this time.
== END | disposition home or self-care (01) ==
PROVIDERS: PCP Family Medicine; Referring Provider Internal Medicine Critical Care Medicine; Visit Provider Internal Medicine Critical Care Medicine
DX: J44.9 Chronic obstructive pulmonary disease, unspecified (principal)
CPT/HCPCS: 94618

== ENCOUNTER → 2021-10-08 | Outpatient (CLI) | payer OTHER, SELFPAY ==
--- NOTE | 2021-10-08 07:10 | CT_ITS ---
STUDY: LOW DOSE CT LUNG CANCER SCREENING REASON FOR EXAM: Male, 61 years old. H/o tobacco dependency. The patient smoked 1 pack per day for 40 years. RADIATION DOSAGE (If Supplied By Facility): CTDIvol = ( 4.02 ) mGy, DLP = ( 124.86 ) mGycm TECHNIQUE: No contrast was administered. Low dose technique was utilized (average mAS-38 and kVp 120). 1.25 mm axial source images with a slice interval of 1.25-mm were reconstructed in lung windows. 2.5 mm axial source images with a slice interval of 2.5-mm were reconstructed in lung windows. 5.0 mm axial source images with a slice interval of 5.0-mm were reconstructed in soft tissue windows. COMPARISON: Comparison is made with prior study dated 09/29/2015. NODULES: No suspicious nodules are seen. Emphysema: Mild degree of linear scarring in the right middle lobe. Endobronchial lesion: Unremarkable. Aorta: Mild atherosclerotic calcific plaques of the aortic arch. CORONARY ARTERIES: Coronary artery calcification is seen. Heart: Unremarkable Pulmonary artery: Unremarkable Mediastinal nodes: Unremarkable Other chest and abdominal findings: CT/Low Dose CT Lung Screening IMPRESSION: Lung-RADS category 2 - Continue annual screening with LDCT in 12 months. IMPORTANT NOTES FOR USE: ACR Lung-RADS Version 1.1 Assessment Categories Release Date: 2018 Category: Coded 0-4 bases on nodule(s) with highest degree of suspicion. Negative screen is defined as categories 1 and 2; a positive screen is defined as categories 3 and 4. Category 3 and 4A nodules that are unchanged on interval CT should be coded as category 2, and individuals returned to screening in 12 months. Category 4X: Category 3 or 4 nodules with additional imaging findings that increase the suspicion of lung cancer, such as spiculation, GGN that doubles in size in 1 year, enlarged lymph notes, etc. Category Modifiers: S (significant finding unrelated to lung cancer) Electronically Signed: Jimy Traore MD at 10:46 EDT ,
== END | disposition home or self-care (01) ==
LOC: CT 07:07
PROVIDERS: PCP Family Medicine; Referring Provider Internal Medicine Critical Care Medicine; Visit Provider Internal Medicine Critical Care Medicine
DX: Z87.891 Personal history of nicotine dependence (principal)
CPT/HCPCS: 71271

== ENCOUNTER → 2022-01-29 | Outpatient (CLI) | payer OTHER, SELFPAY ==
[2022-01-29 12:37] LABS: Anion Gap 7 (5-15); BUN 15 mg/dL (7-18); BUN/Creat Ratio 14.9 RATIO (10-20); Calcium,Total 8.9 mg/dL (8.5-10.1); Chloride 107 mmol/L (98-107); Creatinine, Serum 1.01 mg/dL (0.70-1.30); EST Glomerular Filtration Rate 80 mL/min (>60); Est Glom Filt Rate - Afr Amer 97 mL/min (>60); Glucose 136 mg/dL (74-106); Magnesium 2.2 mg/dL (1.6-2.6); Potassium 4.1 mmol/L (3.5-5.1); Sodium Level 139 mmol/L (136-145)
== END | disposition home or self-care (01) ==
LOC: LAB 11:33
PROVIDERS: PCP Family Medicine; Referring Provider Internal Medicine Cardiovascular Disease; Visit Provider Internal Medicine Cardiovascular Disease
DX: I42.8 Other cardiomyopathies (principal); Z95.810 Presence of automatic (implantable) cardiac defibrillator
CPT/HCPCS: 36415; 80048; 83735

== ENCOUNTER → 2024-11-01 | Outpatient (CLI) | payer OTHER, SELFPAY | END | disposition home or self-care (01) | PROVIDERS: PCP Family Medicine; Referring Provider Physician Assistant Medical; Visit Provider Physician Assistant Medical | DX: I42.8 Other cardiomyopathies (principal) | CPT/HCPCS: 93306; Q9957; A4216; C8929 ==

== ENCOUNTER → 2025-02-17 | Outpatient (CLI) | payer OTHER, SELFPAY ==
[2025-02-17 09:14] LABS: Hematocrit 43.7 % (40-54); Hemoglobin 15.4 g/dL (13.0-16.5); Immature Granulocytes Count 0.020 X10^3/uL (0.0-0.0); Mean Corp Hgb Conc 35.2 g/dL (32-36); Mean Corpuscular Volume 97.5 fL (80-94); Mean Platelet Vol. 10.9 fl (6.2-12.0); NRBC Flagged by Analyzer 0 % (0-5); Platelet Count 214 K/mm3 (150-450); RBC Distribution Width CV 13.0 % (11.6-14.6); RBC Distribution Width SD 46.5 fl (35.1-43.9); Red Blood Count 4.48 M/mm3 (4.6-6.2); White Blood Count 8.1 K/mm3 (4.4-11.0)
[2025-02-17 10:12] LABS: Cholesterol 146 mg/dL (<=200); Free T3 2.6 pg/mL (2.18-3.98); Low Density Lipoprotein Calc. 52 mg/dL; Triglycerides 408 mg/dL; Very Low Density Lipoprotein 82 mg/dL (5-40); cholesterol:hdl ratio screen 4.44
[2025-02-17 10:21] LABS: AST(SGOT) 41 U/L (<=37); Alanine Aminotransfer ALT/SGPT 13 U/L (<=46); Albumin, Serum 4.1 g/dL (3.4-4.8); Alkaline Phosphatase 69 U/L (40-129); Anion Gap 10 (5-15); BUN 18 mg/dL (4-19); BUN/Creat Ratio 16.9 RATIO (10-20); Calcium,Total 9.3 mg/dL (7.6-11.0); Carbon Dioxide 27.4 mmol/L (21.0-32.0); Chloride 104 mmol/L (98-108); Globulin 2.8 g/dL (2.2-4.2); Glucose 139 mg/dL (70-99); Potassium 4.8 mmol/L (3.3-5.1)
== END | disposition home or self-care (01) ==
LOC: LAB 08:59
PROVIDERS: PCP Family Medicine; Referring Provider Physician Assistant Medical; Visit Provider Physician Assistant Medical
DX: I42.8 Other cardiomyopathies (principal); I48.0 Paroxysmal atrial fibrillation; I10 Essential (primary) hypertension; E78.5 Hyperlipidemia, unspecified; Z95.810 Presence of automatic (implantable) cardiac defibrillator; Z79.899 Other long term (current) drug therapy
CPT/HCPCS: 36415; 80053; 80061; 84439; 84443; 84481; 85025

== ENCOUNTER → 2025-02-25 | Outpatient (CLI) | payer OTHER, SELFPAY | END | disposition home or self-care (01) | LOC: PSN 10:35 | PROVIDERS: PCP Family Medicine; Referring Provider Physician Assistant Medical; Visit Provider Physician Assistant Medical | DX: Z79.899 Other long term (current) drug therapy (principal) | CPT/HCPCS: 94010; 94726; 94729 ==